=== PATIENT | female | born 1945 | race Caucasian/White ===

== ENCOUNTER → 2016-10-15 | Outpatient (CLI) | payer OTHER, MEDICARE ==
[~2016-10-15] MED LIST: ACET-1256 PO; ASPI81TA28 PO; CALC-20 PO; DICL-201 PO; IBAN150T PO; LEVO100T7 PO; MULT-916 PO; OXYC1TAB3 PO
--- NOTE | 2016-10-15 16:25 | MAMMOGRAPHY REPORT ---
BILATERAL DIGITAL SCREENING MAMMOGRAM WITH CAD: 10/15/2016 CLINICAL HISTORY: Routine screening. Patient has no complaints. TECHNIQUE: Bilateral CC and MLO views were obtained. Current study was also evaluated with a Comput er Aided Detection (CAD) system. COMPARISON: Comparison is made to exams dated: 10/10/2015 mammogram, 10/06/2014 mammogram, 06/17/2013 m ammogram, 06/16/2012 mammogram, 06/15/2011 mammogram, and 06/13/2010 mammogram - [facility]. BREAST COMPOSITION: There are scattered areas of fibroglandular density in both breasts. FINDINGS: There is a new 5 mm focal asymmetry in the 12:00 far posterior right breast, for which ad ditional spot compression tomosynthesis views and possibly ultrasound are recommended. There are scattered stable benign coarse calcifications elsewhere in the breast. Minimal vascular c alcification. No other suspicious mass, architectural distortion or cluster of microcalcifications i s seen. IMPRESSION: ACR BI-RADS CATEGORY 0: INCOMPLETE EVALUATION: NEED ADDITIONAL IMAGING EVALUATION The new 5 mm focal asymmetry in the 12:00 posterior right breast needs additional evaluation. The patient will be called to schedule an appointment. Approximately 10% of breast cancers are not detected with mammography. A negative mammographic repor t should not delay biopsy if a clinically suggestive mass is present. Tamiko Durán M.D. ay/:10/15/2016 14:21:47 Take Up Supervisor: Jaqueline SANCHEZ(Mt)(M), [facility] letter sent: Addl Imaging 0 BI-RADS Code: ACR BI-RADS Category 0: Incomplete Evaluation: Need Additional Imaging Evaluation
== END | disposition home or self-care (01) ==
LOC: C.MAMM 13:07
PROVIDERS: ATTEND Obstetrics & Gynecology
DX: Z12.31 Encounter for screening mammogram for malignant neoplasm of breast (principal); R92.8 Other abnormal and inconclusive findings on diagnostic imaging of breast

== ENCOUNTER → 2016-10-26 | Outpatient (CLI) | payer OTHER, MEDICARE ==
--- NOTE | 2016-10-26 16:33 | MAMMOGRAPHY REPORT ---
UNILATERAL RIGHT DIGITAL DIAGNOSTIC MAMMOGRAM TOMOSYNTHESIS AND TARGETED RIGHT ULTRASOUND: 10/26/2016 CLINICAL HISTORY: Callback from screening mammogram for right breast asymmetry. TECHNIQUE: Breast tomosynthesis in addition to standard 2D mammography was performed. Spot mick donato right CC and MLO 2-D and tomosynthesis images were obtained. COMPARISON: Comparison is made to exams dated: 10/15/2016 mammogram, 10/10/2015 mammogram, 10/06/2014 ma mmogram, 06/17/2013 mammogram, 06/16/2012 mammogram, and 06/15/2011 mammogram - [facility]. BREAST COMPOSITION: There are scattered areas of fibroglandular density in the right breast. FINDINGS: The previously described asymmetry seen within the right 12:00 breast posteriorly effaces on the additional spot compression views, suggestive of normal overlapping fibroglandular tissue. T he appearance of this region appears similar to prior exams including the 2014 exam on the spot comp ression MLO view. No suspicious masses or areas of architectural distortion are noted on the additi onal tomosynthesis images. Targeted ultrasound was performed of the right 12:00 breast in the region of the mammographic asymme try, which shows some atrophic normal tissue without evidence of a mass or other suspicious sonograp hic abnormality. IMPRESSION: ACR BI-RADS CATEGORY 2: BENIGN, TARGETED ULTRASOUND ACR BI-RADS CATEGORY 2: BENIGN The right breast asymmetry effaces on the additional views, without corresponding sonographic abnorm ality evident. The asymmetry is benign and compatible with normal overlapping fibroglandular tissue . There is no mammographic or targeted sonographic evidence of malignancy. A 1 year screening mammo gram is recommended. The patient has been verbally notified of the results. Approximately 10% of breast cancers are not detected with mammography. A negative mammographic repor t should not delay biopsy if a clinically suggestive mass is present. Maryan Simon M.D. /:10/26/2016 14:50:28 Dry Box Tender: Shania ROSS)(Jerzy), [facility] letter sent: Normal 1/2 BI-RADS Code: ACR BI-RADS Category 2: Benign Ultrasound BI-RADS: ACR BI-RADS Category 2: Benign
== END | disposition home or self-care (01) ==
LOC: C.MAMM 13:57
PROVIDERS: ATTEND Obstetrics & Gynecology
DX: N64.89 Other specified disorders of breast (principal)

== ENCOUNTER 2017-01-06 09:27 | Emergency (ER) | payer OTHER, MEDICARE ==
[~2017-01-06] VITALS: Ht 149.9 cm; Wt 84.1 kg
[2017-01-06 09:32] VITALS: TEMP 36.7; Ht 149.9 cm; Wt 84.1 kg
--- NOTE | 2017-01-06 09:46 | EMERGENCY ROOM VISIT NOTE ---
History Report prepared by Chandrika: Talat Vigren Under the Supervision of: Dr. Jay Smart M.D. First contact with patient: 09:36 Chief Complaint: LEG PAIN,LEG INJURY Stated Complaint: PAIN IN R THIGH History of Present Illness The patient is a 71 year old female who presents to the Emergency Room with complaints of persistent pain in the right leg that began on Saturday evening, two days prior to arrival. The patient states that her pain is located in the inner portion of the right thigh just below her groin. Her pain is worsened with movement, but she does not have any numbness or weakness in her lower leg or foot. The patient states that she does have a history of a broken right hip and had screw placement in the joint. She also has sciatica in the right side of her back, but she denies any back pain currently. She also denies any neck pain, nausea, vomiting, or recent falls. She has a history of osteoporosis, and varicose veins. Source of History: patient, family Onset: Two days [employer]OB DEVELOPMENT [employer]IST Position: leg (right) Timing: other (Persistent) Modifying Factors (Worsening): movement Associated Symptoms: No neck pain, No nausea, No vomiting, No back pain, No weakness, No numbness Review of Systems See HPI for pertinent positives & negatives. A total of 10 systems reviewed and were otherwise negative. Past Medical & Surgical Medical Problems: (1) Hip fracture, right (2) Osteoporosis Surgical Problems: (1) Closed hip fracture requiring operative repair Osteoporosis Old medical records were reviewed. Nurse's notes were reviewed and I agree with. No history of blood clots Family History No pertinent family history secondary to age. Social History Smoking Status: Never Smoker Drug Use: none Occupation Status: retired Current/Historical Medications Scheduled Acetaminophen (Tylenol), 2 TAB PO Q6 Aspirin (Aspirin Ec), 81 MG PO DAILY Calcium Carbonate-Vitamin D (Calcium 600 + D), 1 TAB PO BID Diclofenac (Voltaren), 75 MG PO BID Ibandronate Sodium (Boniva), 150 MG PO MONTHLY Levothyroxine Sodium (Levothyroxine Sodium), 1 TAB PO DAILY Multiple Vitamins W/ Minerals (Multivitamin Adults 50+), 1 TAB PO QAM Scheduled PRN Oxycodone Immediate Rel Tab (Roxicodone Ir), 1 TAB PO Q4H PRN for Severe Pain Allergies Coded Allergies: No Known Allergies (Unverified , 01/06/17) Physical Exam Vital Signs Date Time Temp Pulse Resp B/P (MAP) Pulse Ox O2 Delivery O2 Flow Rate FiO2 01/06/17 13:10 88 18 123/70 97 01/06/17 11:30 89 18 103/70 97 Room Air 01/06/17 09:32 36.7 88 18 159/86 95 Room Air Physical Exam General: Well developed well nourished in no acute distress, breathing comfortably on room air. Normal speech HEENT: Normal cephalic atraumatic. Pupils are equal round and reactive to light. Extraocular movements are intact. Oropharynx is pink with moist mucous membranes. No swelling of the mouth lips or tongue. Neck: Supple with a midline trachea. No meningeal signs or stiffness, no JVD or bruits. No Stridor. Chest: Clear to auscultation bilaterally. No wheezes or rhonchi. No increased work of breathing. Heart: regular rate and rhythm. Abdomen: Soft nontender, nondistended without rebound guarding or rigidity. Extremities: There is tenderness to the right anterior medial thigh, bounding distal pulses in the right foot. No cyanosis clubbing or edema. No calf tenderness or assymetry Spine/Back. Non tender to palpation. No CVA tenderness Skin: Good turgor without rashes. Neurologic exam: Cranial nerves two through 12 are intact. Motor and sensation are intact and symmetrical throughout. Medical Decision & Procedures ER Provider Diagnostic Interpretation: Radiology results as stated below per my review and radiologist interpretation: RIGHT FEMUR 3 VIEWS CLINICAL HISTORY: Right leg pain. FINDINGS: AP, frog-leg, and crosstable lateral views of the right femur are correlated with pelvic radiograph performed concurrently on 01/06/2017. The skeletal structures are osteopenic. No acute right femoral fracture is identified. There is chronic posttraumatic deformity of the right femoral neck with 3 intertrochanteric cortical lag screws in place. Advanced arthritic change is seen in the right hip. The knee joint is grossly preserved. The overlying soft tissues are within normal limits. The visualized right hemipelvis is intact. IMPRESSION: 1. There is no radiographic evidence of acute right femoral fracture. 2. Chronic posttraumatic deformity and postoperative change are noted in the right femoral neck. 3. Advanced arthritic change is noted in the right hip. Electronically signed by: Morteza Zhang M.D. 01/06/2017 10:48 AM Dictated Date/Time: 01/06/2017 10:46 AM ULTRASOUND RIGHT LOWER EXTREMITY VENOUS CLINICAL HISTORY: Right leg pain and swelling. COMPARISON STUDY: No priors. TECHNIQUE: Real-time, grayscale, and color Doppler sonography of the deep veins of the right lower extremity was performed from the inguinal crease to the calf. Compression and augmentation were utilized. FINDINGS: There is no sonographic evidence of deep venous thrombosis identified in the right lower extremity. The common femoral, superficial femoral, and popliteal veins are patent and normally compressible. The greater saphenous vein and the profunda femoris vein at the junction with the common femoral vein are clear. The visualized calf veins are patent. IMPRESSION: There is no sonographic evidence of deep venous thrombosis identified in the right lower extremity. Electronically signed by: Morteza Zhang M.D. 01/06/2017 10:41 AM Dictated Date/Time: 01/06/2017 10:40 AM SINGLE VIEW PELVIS CLINICAL HISTORY: Right leg pain. FINDINGS: An AP pelvic radiograph is obtained. No prior studies are available for comparison at the time of dictation. The skeletal structures are osteopenic. Chronic posttraumatic deformity is identified in the right femoral neck with 3 cortical intertrochanteric lag screws in place. No acute fracture is seen involving the hips or bony pelvis. Advanced arthritic change is seen in the right hip with bony sclerosis and near complete loss of the joint space. Moderate to advanced arthritic change is seen in the left hip. Degenerative sclerosis and overgrowth is noted at the pubic symphysis. Mild lumbosacral spondylosis is partially visualized. The overlying soft tissues are within normal limits. There is a nonobstructed abdominal bowel gas pattern. IMPRESSION: 1. No acute fracture is seen in the hips or bony pelvis. 2. Chronic posttraumatic deformity and postoperative change is identified in the right femur. 3. Osteopenia and degenerative change as above. Electronically signed by: Morteza Zhang M.D. 01/06/2017 10:42 AM Dictated Date/Time: 01/06/2017 10:41 AM Laboratory Results 01/06/17 09:57 Red Blood Count 4.42, Mean Corpuscular Volume 93.0, Mean Corpuscular Hemoglobin 29.9, Mean Corpuscular Hemoglobin Concent 32.1, Mean Platelet Volume 10.3, Neutrophils (%) (Auto) 57.6, Lymphocytes (%) (Auto) 21.1, Monocytes (%) (Auto) 15.0, Eosinophils (%) (Auto) 5.4, Basophils (%) (Auto) 0.8, Neutrophils # (Auto ) 4.44, Lymphocytes # (Auto) 1.63, Monocytes # (Auto) 1.16, Eosinophils # (Auto ) 0.42, Basophils # (Auto) 0.06 01/06/17 09:57 Test 01/06/17 09:57 White Blood Count 7.72 K/uL (4.8-10.8) Red Blood Count 4.42 M/uL (4.2-5.4) Hemoglobin 13.2 g/dL (12.0-16.0) Hematocrit 41.1 % (37-47) Mean Corpuscular Volume 93.0 fL (80-100) Mean Corpuscular Hemoglobin 29.9 pg (25-34) Mean Corpuscular Hemoglobin Concent 32.1 g/dl (32-36) Platelet Count 252 K/uL (130-400) Mean Platelet Volume 10.3 fL (7.4-10.4) Neutrophils (%) (Auto) 57.6 % Lymphocytes (%) (Auto) 21.1 % Monocytes (%) (Auto) 15.0 % Eosinophils (%) (Auto) 5.4 % Basophils (%) (Auto) 0.8 % Neutrophils # (Auto) 4.44 K/uL (1.4-6.5) Lymphocytes # (Auto) 1.63 K/uL (1.2-3.4) Monocytes # (Auto) 1.16 K/uL (0.11-0.59) Eosinophils # (Auto) 0.42 K/uL (0-0.5) Basophils # (Auto) 0.06 K/uL (0-0.2) RDW Standard Deviation 47.0 fL (36.4-46.3) RDW Coefficient of Variation 13.8 % (11.5-14.5) Immature Granulocyte % (Auto) 0.1 % Immature Granulocyte # (Auto) 0.01 K/uL (0.00-0.02) Anion Gap 7.0 mmol/L (3-11) Est Creatinine Clear Calc Drug Dose 76.0 ml/min Estimated GFR () 103.7 Estimated GFR (Non- 89.5 BUN/Creatinine Ratio 31.3 (10-20) Calcium Level 8.8 mg/dl (8.5-10.1) Thyroid Stimulating Hormone (TSH) 1.230 uIu/ml (0.300-4.500) Free Thyroxine 1.69 ng/dl (0.80-1.60) Laboratory studies as stated above per my review. Medications Administered Medications (Trade) Dose Ordered Sig/Shagufta Route Start Time Stop Time Status Last Admin Dose Admin Ketorolac Tromethamine (Toradol Inj) 30 mg NOW STAT IV 01/06/17 11:36 01/06/17 11:37 DC 01/06/17 11:46 30 MG ED Course 0937: Past medical records reviewed. The patient was evaluated in room B4, and a complete history and physical examination were performed. 1136: Ordered Toradol 30 mg IV. 1254: Upon reevaluation, the patient is resting in bed and is ready to go home. I discussed the results and treatment plan with her. She verbalized agreement of the treatment plan. The patient was discharged home. Medical Decision Blood Pressure Screening: Patient was found to have a slightly elevated blood pressure due to circumstances. I do not believe that the patient requires hypertension monitoring. Medication Reconciliation: I attest that I have personally reviewed the patient' s current medication list. Differential Diagnosis includes: DVT, hematoma, infection, fracture, electrolyte or metabolic abnormality. This patient comes in as described above she has pain in the right anterior/ medial thigh. No known injuries. On the right leg hurts worse with movement. There is no redness or warmth distally she has distal normal motor and sensation and good pulses. She's no tenderness to the abdomen no evidence of hernias. Ultrasound was obtained leg is no evidence of DVT. She has no significant white count or fever her cellulitis. She has no electrode metabolic abdomen. She was given IV Toradol is feeling somewhat better she does feel up to going home. X-rays show no fracture she does have degenerative arthritis of the hip and this could be causing some of her symptoms. I think her symptoms are likely musculoskeletal . I will have her rest continue to use [id number] acetaminophen but do not exceed the [id number] recommended dosages. Continue her NSAID. For breakthrough pain, she can use OxyIR 5 mg, 1 pill every 4-6 hours as needed. I warned her that this could make her drowsy and do not take before drinking, driving, working. She should return if: increasing pain, numbness or weakness, worsening of symptoms, any new problems or concerns. Follow-up with her regular doctor in the next couple days for recheck. She is happy with plan and discharged to home. Impression Primary Impression: Right thigh pain Additional Impression: Degenerative joint disease of right hip Scribe Attestation The scribe's documentation has been prepared under my direction and personally reviewed by me in its entirety. I confirm that the note above accurately reflects all work, treatment, procedures, and medical decision making performed by me. Departure Information Dispostion Home / Self-Care Prescriptions Oxycodone Immediate Rel Tab (ROXICODONE IR) 5 Mg Tab 1 TAB PO Q4H Y for Severe Pain, #24 TAB Prov: Jay Smart M.D. 01/06/17 Referrals Paul Souza M.D. (PCP) Forms HOME CARE DOCUMENTATION FORM, IMPORTANT VISIT INFORMATION Patient Instructions My [facility] Additional Instructions Rest. Drink plenty of fluids. Continue to use your anti-inflammatory as well as acetaminophen/Tylenol. Do not exceed the [id number] recommended dosages for acetaminophen/Tylenol For more severe pain, use OxyIR 5 mg, one pill every 4-6 hours as needed. OxyIR may make you drowsy and do not take before drinking, driving, working and be especially careful getting up and down. Return if: Increasing pain, worsening of symptoms, numbness weakness, fever chills, any new problems concerns Follow-up with your doctor 1-2 days for recheck. Problem Qualifiers
[2017-01-06 10:07] LABS: BASO % 0.8 %; BASO ABS # 0.06 K/uL (0-0.2); COMPLETE YES; EOS % 5.4 %; HEMATOCRIT 41.1 % (37-47); IG% 0.1 %; LYMPH % 21.1 %; LYMPH ABS # 1.63 K/uL (1.2-3.4); MEAN CORPUSCULAR HEMOGLOBIN 29.9 pg (25-34); MEAN CORPUSCULAR HGB CONC 32.1 g/dl (32-36); MEAN PLATELET VOLUME 10.3 fL (7.4-10.4); NEUT % 57.6 %; PLATELET COUNT 252 K/uL (130-400); RED BLOOD COUNT 4.42 M/uL (4.2-5.4); WHITE BLOOD COUNT 7.72 K/uL (4.8-10.8)
[2017-01-06] MEDS ORDERED: LEVO100T7 PO (10:18)
[2017-01-06] MEDS ORDERED: ACET-1256 PO (10:18)
[2017-01-06] MEDS ORDERED: MULT-916 PO (10:18)
[2017-01-06] MEDS ORDERED: CALC-20 PO (10:18)
[2017-01-06] MEDS ORDERED: IBAN150T PO (10:18)
[2017-01-06] MEDS ORDERED: ASPI81TA28 PO (10:18)
[2017-01-06] MEDS ORDERED: DICL-201 PO (10:18)
[2017-01-06 10:23] LABS: BUN/CREATININE RATIO 31.3 (10-20); CALCIUM 8.8 mg/dl (8.5-10.1); CREATININE 0.62 mg/dl (0.60-1.20); POTASSIUM 4.1 mmol/L (3.5-5.1)
--- NOTE | 2017-01-06 10:42 | DIAGNOSTIC IMAGING REPORT ---
ULTRASOUND RIGHT LOWER EXTREMITY VENOUS CLINICAL HISTORY: Right leg pain and swelling. COMPARISON STUDY: No priors. TECHNIQUE: Real-time, grayscale, and color Doppler sonography of the deep veins of the right lower extremity was performed from the inguinal crease to the calf. Compression and augmentation were utilized. FINDINGS: There is no sonographic evidence of deep venous thrombosis identified in the right lower extremity. The common femoral, superficial femoral, and popliteal veins are patent and normally compressible. The greater saphenous vein and the profunda femoris vein at the junction with the common femoral vein are clear. The visualized calf veins are patent. IMPRESSION: There is no sonographic evidence of deep venous thrombosis identified in the right lower extremity. Electronically signed by: Morteza Zhang M.D. 01/06/2017 10:41 AM Dictated Date/Time: 01/06/2017 10:40 AM
--- NOTE | 2017-01-06 10:44 | DIAGNOSTIC IMAGING REPORT ---
SINGLE VIEW PELVIS CLINICAL HISTORY: Right leg pain. FINDINGS: An AP pelvic radiograph is obtained. No prior studies are available for comparison at the time of dictation. The skeletal structures are osteopenic. Chronic posttraumatic deformity is identified in the right femoral neck with 3 cortical intertrochanteric lag screws in place. No acute fracture is seen involving the hips or bony pelvis. Advanced arthritic change is seen in the right hip with bony sclerosis and near complete loss of the joint space. Moderate to advanced arthritic change is seen in the left hip. Degenerative sclerosis and overgrowth is noted at the pubic symphysis. Mild lumbosacral spondylosis is partially visualized. The overlying soft tissues are within normal limits. There is a nonobstructed abdominal bowel gas pattern. IMPRESSION: 1. No acute fracture is seen in the hips or bony pelvis. 2. Chronic posttraumatic deformity and postoperative change is identified in the right femur. 3. Osteopenia and degenerative change as above. Electronically signed by: Morteza Zhang M.D. 01/06/2017 10:42 AM Dictated Date/Time: 01/06/2017 10:41 AM
--- NOTE | 2017-01-06 10:49 | DIAGNOSTIC IMAGING REPORT ---
RIGHT FEMUR 3 VIEWS CLINICAL HISTORY: Right leg pain. FINDINGS: AP, frog-leg, and crosstable lateral views of the right femur are correlated with pelvic radiograph performed concurrently on 01/06/2017. The skeletal structures are osteopenic. No acute right femoral fracture is identified. There is chronic posttraumatic deformity of the right femoral neck with 3 intertrochanteric cortical lag screws in place. Advanced arthritic change is seen in the right hip. The knee joint is grossly preserved. The overlying soft tissues are within normal limits. The visualized right hemipelvis is intact. IMPRESSION: 1. There is no radiographic evidence of acute right femoral fracture. 2. Chronic posttraumatic deformity and postoperative change are noted in the right femoral neck. 3. Advanced arthritic change is noted in the right hip. Electronically signed by: Morteza Zhang M.D. 01/06/2017 10:48 AM Dictated Date/Time: 01/06/2017 10:46 AM
[2017-01-06] MEDS ORDERED: KETOROLAC TROMETHAMINE 30 MG/ML VIAL IV STA (11:36)
[2017-01-06] MEDS ORDERED: OXYC1TAB3 PO (12:51)
[2017-01-06 13:10] VITALS: BP 123/70; PULSE 88; O2SAT 97
[2017-01-06 13:23] LABS: THYROID STIMULATING HORMONE 1.23 uIu/ml (0.300-4.500)
== END 2017-01-06 13:12 | disposition home or self-care (01) ==
LOC: C.EDB 09:28
DX: M79.651 Pain in right thigh (principal); M16.11 Unilateral primary osteoarthritis, right hip; M81.0 Age-related osteoporosis without current pathological fracture; I83.90 Asymptomatic varicose veins of unspecified lower extremity; Z79.82 Long term (current) use of aspirin; Z79.899 Other long term (current) drug therapy

== ENCOUNTER → 2017-08-19 | Outpatient (CLI) | payer OTHER, MEDICARE ==
[~2017-08-19] MED LIST changes: -OXYC1TAB3 PO
== END | disposition home or self-care (01) ==
LOC: C.RDSM 18:55
PROVIDERS: ATTEND Family Medicine Sports Medicine
DX: M25.551 Pain in right hip (principal)

== ENCOUNTER → 2017-09-16 | Outpatient (CLI) | payer OTHER, MEDICARE | END | disposition home or self-care (01) | LOC: C.LABBC 11:27 | PROVIDERS: ATTEND Physician Assistant | DX: M16.11 Unilateral primary osteoarthritis, right hip (principal) ==

== ENCOUNTER 2017-11-02 09:46 | Emergency (ER) | payer OTHER, MEDICARE ==
[2017-11-02 09:52] VITALS: TEMP 36.9
[2017-11-02] MEDS ORDERED: ONDANSETRON INJ 2 MG/ML 2 ML VIAL IV STA (10:00)
[2017-11-02] MEDS: HYDROmorphone INJ 0.5 MG/0.5 ML SYR IV PRN ×3 (10:15→15:35)
[2017-11-02 10:33] LABS: BASO % 0.6 %; BASO ABS # 0.04 K/uL (0-0.2); EOS % 2.5 %; EOS ABS # 0.16 K/uL (0-0.5); HEMATOCRIT 37.2 % (37-47); HEMOGLOBIN 12.4 g/dL (12.0-16.0); IG# 0.01 K/uL (0.00-0.02); LYMPH % 15.2 %; LYMPH ABS # 0.96 K/uL (1.2-3.4); MEAN CELL VOLUME 86.7 fL (80-100); MEAN CORPUSCULAR HEMOGLOBIN 28.9 pg (25-34); MEAN CORPUSCULAR HGB CONC 33.3 g/dl (32-36); MEAN PLATELET VOLUME 10.6 fL (7.4-10.4); MONO % 13.4 %; MONO ABS # 0.85 K/uL (0.11-0.59); NEUT % 68.1 %; NEUT ABS # 4.31 K/uL (1.4-6.5); PLATELET COUNT 227 K/uL (130-400); RED CELL DISTRIBUTION WIDTH CV 15.6 % (11.5-14.5); RED CELL DISTRIBUTION WIDTH SD 49.5 fL (36.4-46.3); WHITE BLOOD COUNT 6.33 K/uL (4.8-10.8)
[2017-11-02 10:36] LABS: BLOOD UREA NITROGEN 9 mg/dl (7-18); CALCIUM 8.7 mg/dl (8.5-10.1); CARBON DIOXIDE 29 mmol/L (21-32); CREATININE 0.43 mg/dl (0.60-1.20); GLUCOSE 95 mg/dl (70-99); SODIUM 140 mmol/L (136-145)
--- NOTE | 2017-11-02 10:40 | DIAGNOSTIC IMAGING REPORT ---
R HIP UNILATERAL 2 VIEWS CLINICAL HISTORY: fall trauma. Pain. COMPARISON: 08/19/2017 DISCUSSION: Patient is status post right hip pain. 3. No old films are present. There appears to have been somewhat progressive substance loss of the superior margin of the hip. This appears to intrude upon the joint space. There is no evidence for fracture. No evidence for acetabular protrusion. There appears be a forming pseudoarticulation the lateral aspect of the acetabulum. There is no evidence for soft tissue swelling. IMPRESSION: Degenerative and postoperative change. No acute posttraumatic bony abnormality. The above report was generated using voice recognition software. It may contain grammatical, syntax or spelling errors. Electronically signed by: Cameron Gonzales M.D. 11/02/2017 10:38 AM Dictated Date/Time: 11/02/2017 10:37 AM
[2017-11-02] MEDS ORDERED: IBUP-103 PO (11:12)
[2017-11-02] MEDS ORDERED: TYLER650 PO (11:12)
[2017-11-02] MEDS ORDERED: TRAM-10 PO (11:12)
--- NOTE | 2017-11-02 11:37 | EMERGENCY ROOM VISIT NOTE ---
History Report prepared by Chandrika: Tayo Arellano Under the Supervision of: Dr. Guillermo Arreola M.D. First contact with patient: 09:47 Stated Complaint: FALL - HIP/BACK PAIN History of Present Illness The patient is a 72 year old female who presents to the Emergency Room due to a fall that occurred 31 hours ago. Patient states that the fall occurred when she went into the kitchen. She states that she first fell forward and hit her face, and then fell backwards onto her butt and hit the back of her head. Patient states that she "did not hit her head that hard" and did not lose consciousness. Patient states she has lower back pain from the fall that is worsened when she turns her body to the right. She adds that her forearm is sore. She describes the pain as a 7-8/10 in severity with Tramadol. Patient adds that she has chronic hip pain. She states that she was able to get herself up off the ground after the fall "after a long time" by crawling to the couch. Patient states that yesterday was "very painful" and that she had to be wheel chaired around all day. Patient states that she lives at home. She states that she takes a baby aspirin once a day. Pertinent past surgical history includes a hip surgery performed in a [place] ER for a broken hip. Patient states that she takes Tramadol for the hip pain. Patient states that she has a hip surgery scheduled with Dr. Lopez at [place] on January 28. Patient states that her family doctor is Dr. Souza but currently sees Dr. Lara. Pt denies LOC, headache, fevers, chills, diaphoresis, visual changes, neck pain, chest pain, breathing difficulties, nausea, vomiting, abdominal pain, melena, hematochezia, urinary symptoms, numbness, weakness, lymphadenopathy, rash, or other complaints. Source of History: patient Onset: 31 hours ago Review of Systems See HPI for pertinent positives and negatives. A total of ten systems were reviewed and were otherwise negative. Past Medical & Surgical Medical Problems: (1) Hip fracture, right (2) Osteoporosis Surgical Problems: (1) Closed hip fracture requiring operative repair Family History FHx: cancer FHx: diabetes mellitus FHx: gallbladder disease Social History Smoking Status: Never Smoker Drug Use: none Occupation Status: retired Current/Historical Medications Scheduled Acetaminophen (Tylenol Arthitis Ext Rel), 2 TAB PO AMHS Aspirin (Aspirin Ec), 81 MG PO DAILY Calcium Carbonate-Vitamin D (Calcium 600 + D), 1 TAB PO BID Ibandronate Sodium (Boniva), 150 MG PO MONTHLY Ibuprofen Tab (Advil), 600 MG PO Q4H Levothyroxine Sodium (Levothyroxine Sodium), 100 MCG PO DAILY Multiple Vitamins W/ Minerals (Multivitamin Adults 50+), 1 TAB PO QAM Tramadol (Ultram), 50 MG PO Q4H Allergies Coded Allergies: No Known Allergies (Unverified , 11/02/17) Physical Exam Vital Signs Date Time Temp Pulse Resp B/P (MAP) Pulse Ox O2 Delivery O2 Flow Rate FiO2 11/02/17 13:02 171/93 11/02/17 13:00 75 15 11/02/17 12:30 78 17 98 11/02/17 12:03 113/86 11/02/17 12:00 78 15 98 11/02/17 11:52 94 Nasal Cannula 2.0 11/02/17 11:42 77 11/02/17 11:30 75 22 90 11/02/17 11:20 143/78 11/02/17 11:12 76 16 143/78 95 Room Air 11/02/17 11:12 95 Room Air 11/02/17 09:52 36.9 89 20 205/118 95 Room Air Physical Exam GENERAL: Awake, alert, uncomfortable-appearing, in no distress HENT: Normocephalic, atraumatic. Oropharynx unremarkable. EYES: Normal conjunctiva. Sclera non-icteric. NECK: Supple. No nuchal rigidity. FROM. No masses. RESPIRATORY: Clear to auscultation. No wheezes. No rales. Normal respiratory effort. CARDIAC: Normal rate. Normal rhythm. No murmurs. No rubs. Extremities warm and well perfused. Pulses equal. No JVD. GI: Soft, non-distended. No tenderness to palpation. No rebound or guarding. No masses. RECTAL: Deferred. MUSCULOSKELETAL: Atraumatic. Chest examination reveals no tenderness. Large contusion in the left tricep area. Contusion on right thigh. Midline lumbar back tenderness. Mild left posterior hip tenderness. ROM of the right hip relatively well preserved. There is no CVA tenderness to palpation. No joint edema. LOWER EXTREMITIES: Calves are equal size bilaterally and non-tender. No edema. No discoloration. NEURO: Normal sensorium. No sensory or motor deficits noted. No saddle anesthesia SKIN: No rash or jaundice noted. Medical Decision & Procedures ER Provider Diagnostic Interpretation: Radiology results as stated below per my review and radiologist interpretation: R HIP UNILATERAL 2 VIEWS CLINICAL HISTORY: fall trauma. Pain. COMPARISON: 08/19/2017 DISCUSSION: Patient is status post right hip pain. 3. No old films are present. There appears to have been somewhat progressive substance loss of the superior margin of the hip. This appears to intrude upon the joint space. There is no evidence for fracture. No evidence for acetabular protrusion. There appears be a forming pseudoarticulation the lateral aspect of the acetabulum. There is no evidence for soft tissue swelling. IMPRESSION: Degenerative and postoperative change. No acute posttraumatic bony abnormality. The above report was generated using voice recognition software. It may contain grammatical, syntax or spelling errors. Electronically signed by: Cameron Gonzales M.D. 11/02/2017 10:38 AM LUMBAR SPINE WITHOUT CT DOSE: 776.31 mGy.cm HISTORY: Pain Back pain TECHNIQUE: Multiaxial CT images of the lumbar spine were performed and reformatted in the sagittal and coronal plane without the use of contrast. A dose lowering technique was utilized adhering to the principles of ALARA. COMPARISON: None. FINDINGS: Vertebral body stature is normal. Moderate compression deformity T11 of uncertain age. Severe degenerative disc change L5-S1. A vacuum disc is present. Minimal grade 1 anterolisthesis of L4 on L5 secondary to degenerative changes of the posterior elements. Moderate osteopenia. IMPRESSION: 1. Significant degenerative change lower lumbar spine considered most prominent at the L4-L5 level. 2. Generalized osteopenia. 3. Moderate compression deformities T11 of uncertain age. The above report was generated using voice recognition software. It may contain grammatical, syntax or spelling errors. Electronically signed by: Cameron Gonzales M.D. 11/02/2017 11:40 AM Laboratory Results 11/02/17 10:09 Red Blood Count 4.29, Mean Corpuscular Volume 86.7, Mean Corpuscular Hemoglobin 28.9, Mean Corpuscular Hemoglobin Concent 33.3, Mean Platelet Volume 10.6, Neutrophils (%) (Auto) 68.1, Lymphocytes (%) (Auto) 15.2, Monocytes (%) (Auto) 13.4, Eosinophils (%) (Auto) 2.5, Basophils (%) (Auto) 0.6, Neutrophils # (Auto ) 4.31, Lymphocytes # (Auto) 0.96, Monocytes # (Auto) 0.85, Eosinophils # (Auto ) 0.16, Basophils # (Auto) 0.04 11/02/17 10:09 Test 11/02/17 10:09 11/02/17 10:27 White Blood Count 6.33 K/uL (4.8-10.8) Red Blood Count 4.29 M/uL (4.2-5.4) Hemoglobin 12.4 g/dL (12.0-16.0) Hematocrit 37.2 % (37-47) Mean Corpuscular Volume 86.7 fL (80-100) Mean Corpuscular Hemoglobin 28.9 pg (25-34) Mean Corpuscular Hemoglobin Concent 33.3 g/dl (32-36) Platelet Count 227 K/uL (130-400) Mean Platelet Volume 10.6 fL (7.4-10.4) Neutrophils (%) (Auto) 68.1 % Lymphocytes (%) (Auto) 15.2 % Monocytes (%) (Auto) 13.4 % Eosinophils (%) (Auto) 2.5 % Basophils (%) (Auto) 0.6 % Neutrophils # (Auto) 4.31 K/uL (1.4-6.5) Lymphocytes # (Auto) 0.96 K/uL (1.2-3.4) Monocytes # (Auto) 0.85 K/uL (0.11-0.59) Eosinophils # (Auto) 0.16 K/uL (0-0.5) Basophils # (Auto) 0.04 K/uL (0-0.2) RDW Standard Deviation 49.5 fL (36.4-46.3) RDW Coefficient of Variation 15.6 % (11.5-14.5) Immature Granulocyte % (Auto) 0.2 % Immature Granulocyte # (Auto) 0.01 K/uL (0.00-0.02) Anion Gap 5.0 mmol/L (3-11) Estimated GFR () 116.1 Estimated GFR (Non- 100.2 BUN/Creatinine Ratio 20.1 (10-20) Calcium Level 8.7 mg/dl (8.5-10.1) Urine Color YELLOW Urine Appearance CLEAR (CLEAR) Urine pH 7.5 (4.5-7.5) Urine Specific [place] 1.011 (1.000-1.030) Urine Protein NEG (NEG) Urine Glucose (UA) NEG (NEG) Urine Ketones NEG (NEG) Urine Occult Blood NEG (NEG) Urine Nitrite NEG (NEG) Urine Bilirubin NEG (NEG) Urine Urobilinogen NEG (NEG) Urine Leukocyte Esterase SMALL (NEG) Urine WBC (Auto) 5-10 /hpf (0-5) Urine RBC (Auto) 0-4 /hpf (0-4) Urine Hyaline Casts (Auto) 1-5 /lpf (0-5) Urine Epithelial Cells (Auto) >30 /lpf (0-5) Urine Bacteria (Auto) NEG (NEG) Laboratory results reviewed by me Medications Administered Medications (Trade) Dose Ordered Sig/Shagufta Route Start Time Stop Time Status Last Admin Dose Admin Ondansetron HCl (Zofran Inj) 4 mg NOW STAT IV 11/02/17 10:00 11/02/17 10:03 DC 11/02/17 10:14 4 MG Hydromorphone HCl (Dilaudid Inj) 0.5 mg Q15M PRN IV 11/02/17 10:00 11/16/17 09:59 11/02/17 11:11 0.5 MG Potassium Chloride (Klor-Con M10) 20 meq NOW STAT PO 11/02/17 12:00 11/02/17 12:01 DC 11/02/17 12:46 20 MEQ ED Course 0952: The patient was evaluated in room B9. A complete history and physical exam was performed. 1000: Dilaudid Inj 0.5mg IV and Zofran Inj 4mg IV. 1200: Potassium Chloride 20 meq PO 1401: Upon reexamination, the patient will be further evaluated. I discussed the test results and treatment plan with Dr. Toledo. The patient was accepted into [facility]. Transportation for the patient will be arranged. The patient will be evaluated for further management. Medical Decision Triage Nursing notes reviewed. The patient's presentation and history were concerning for fall and back pain. Patient also noted some mild right hip pain. Etiologies such as fracture, lumbago, sciatica, cauda equina, epidural abscess , osteomyelitis, aortic disease, metastatic disease, infection, renal colic, gastrointestinal, as well as others were entertained. The patient was treated with IV Dilaudid and Zofran. She felt much better with this. X-ray imaging of the hip was unremarkable. She has a few other scattered contusions on her extremities. There is no other bony deformity. CT imaging was elected to evaluate for traumatic injury to her lower spine. She was found to have a significant T11 compression fracture. She did require several doses of IV Dilaudid. On reassessment she was feeling better. Treatment options were discussed. The patient was evaluated by the field nurse case manager. Her CBC was unremarkable. Her chemistry panel revealed mild hypokalemia. She was given oral potassium. The patient was felt to be a good candidate for [facility] rehabilitation inpatient treatment and they were consulted. She was accepted. Patient and family feel very comfortable with this plan. I gave my usual and customary discussion regarding this issue. Medication Reconcilliation Current Medication List: was personally reviewed by me Blood Pressure Screening Patient's blood pressure: Elevated blood pressure Referred to hospitalist. Impression Primary Impression: Thoracic compression fracture Additional Impression: Hypokalemia Scribe Attestation The scribe's documentation has been prepared under my direction and personally reviewed by me in its entirety. I confirm that the note above accurately reflects all work, treatment, procedures, and medical decision making performed by me. Departure Information Dispostion Transfer Acute Care Facility Referrals Paul Souza M.D. (PCP) Forms HOME CARE DOCUMENTATION FORM, IMPORTANT VISIT INFORMATION Patient Instructions My [facility] Problem Qualifiers
--- NOTE | 2017-11-02 11:41 | DIAGNOSTIC IMAGING REPORT ---
LUMBAR SPINE WITHOUT CT DOSE: 776.31 mGy.cm HISTORY: Pain Back pain TECHNIQUE: Multiaxial CT images of the lumbar spine were performed and reformatted in the sagittal and coronal plane without the use of contrast. A dose lowering technique was utilized adhering to the principles of ALARA. COMPARISON: None. FINDINGS: Vertebral body stature is normal. Moderate compression deformity T11 of uncertain age. Severe degenerative disc change L5-S1. A vacuum disc is present. Minimal grade 1 anterolisthesis of L4 on L5 secondary to degenerative changes of the posterior elements. Moderate osteopenia. IMPRESSION: 1. Significant degenerative change lower lumbar spine considered most prominent at the L4-L5 level. 2. Generalized osteopenia. 3. Moderate compression deformities T11 of uncertain age. The above report was generated using voice recognition software. It may contain grammatical, syntax or spelling errors. Electronically signed by: Cameron Gonzales M.D. 11/02/2017 11:40 AM Dictated Date/Time: 11/02/2017 11:38 AM
[2017-11-02 11:52] VITALS: O2SAT 94
[2017-11-02] MEDS ORDERED: POTASSIUM CHLORIDE 10 MEQ TABCR PO STA (12:00)
[2017-11-02 15:36] VITALS: BP 147/72; PULSE 91; O2SAT 95
== END 2017-11-02 15:50 | disposition short-term general hospital (02) ==
LOC: EDBD 09:46 → C.EDB 09:47
DX: S22.089A Unspecified fracture of T11-T12 vertebra, initial encounter for closed fracture (principal); E87.6 Hypokalemia; W19.XXXA Unspecified fall, initial encounter; W22.8XXA Striking against or struck by other objects, initial encounter; Y92.030 Kitchen in apartment as the place of occurrence of the external cause; M81.0 Age-related osteoporosis without current pathological fracture; Z98.890 Other specified postprocedural states; Z83.3 Family history of diabetes mellitus; Z79.82 Long term (current) use of aspirin; Z79.899 Other long term (current) drug therapy

== ENCOUNTER 2019-09-26 15:02 | Inpatient (IN) ==
[2019-09-26] MEDS ORDERED: fentaNYL citrate 100 MCG/2 ML VIAL IV STA ×4 (15:11→17:58)
[2019-09-26] MEDS ORDERED: ACETAMINOPHEN 1,000 MG/100 ML VIAL IV STA (15:11)
--- NOTE | 2019-09-26 15:17 | Emergency Department Note ---
ED Provider Note Provider: Rico Cole MD DATE OF SERVICE: 09/26/2019 CHIEF COMPLAINT: Left thigh pain HISTORY OF PRESENT ILLNESS: Patient is a 74-year-old female with a history of hypothyroidism, hypertension, and issues with her left thigh presenting today with a complaint of severe sudden onset left thigh pain. Patient presents via EMS. Received 200 mcg of IV fentanyl prior to arrival for pain. Patient was evidently in her garage get ready to back out of her car and put some slight pressure on her left leg immediately felt a pop and severe pain in her left thigh. Patient been able to ambulate since this. Denies any other pain in her knee left foot right lower extremity or abdomen pelvis. Patient has been undergoing several weeks of physical therapy directed by her primary care provider's office regarding some pain in her left thigh. No recent imaging reported per the patient. Patient does take baby aspirin every day. Patient pain upon arrival is at rest 10 out of 10 and constant worse with movement. Has been using some ibuprofen at home. REVIEW OF SYSTEMS: A total of 10 review of systems was obtained and negative except as stated above in the HPI. PAST MEDICAL HISTORY: As noted above MEDICATIONS: Baby aspirin, Synthroid, amlodipine SOCIAL HISTORY: , lives at home, denies tobacco use PHYSICAL EXAM: GENERAL: alert and oriented left leg on pillows patient appears uncomfortable Head: normocephalic and atraumatic EYES: No injection, discharge or icterus. ENT: Mucous membranes pink and moist. LUNGS: Airway patent. No retractions. Breath sounds clear with good air entry bilaterally. HEART: Regular rate and rhythm. No chest wall tenderness ABDOMEN: Soft and non-tender, without guarding or rebound. BACK:. No bilateral flank tenderness. SKIN: Acyanotic, warm, dry, without rashes EXTREMITIES: Without swelling, tenderness or deformity except for significant tenderness of the left thigh. Pain with ROM of the left thigh. Neurovascularly intact in the left lower extremity with a 2+ DP pulse. Intact movement of the left toes. No bruising or skin changes noted. NEUROLOGICAL: No focal deficits. No aphasia. No facial droop or slurred speech. Normal strength and tone in the extremities. Sensation to gross touch normal. EKG: Normal sinus rhythm rate 66 bpm. No PVC. No ST segment elevation or depression. Normal QRS and QTc. Cardiac monitoring: An order was placed for continuous cardiac monitoring. The monitor shows a rate of 85 with normal sinus rhythm. Patient's hypertension was referred to the hospitalist [facility] COURSE: 1505 Patient was first seen and H&P performed. 1630 Patient reassessed and updated. Call to orthopedics was placed. 165 Discussed with jerel Bernard med admission. Hospitalist group paged. 1710 discussed with Judy Robertson [facility] Patient's laboratory studies and imaging reviewed. Differential includes Fracture, subluxation, dislocation, contusion, ligamentous injury, neurovascular, compartment syndrome, rhabdomyolysis, as well as other pathologies. IMPRESSION/MEDICAL DECISION MAKING: Patient is a 74-year-old female history of hypothyroidism and hypertension presenting today again with sudden onset of left thigh pain without significant trauma. Some pain for several weeks. Concern for possible occult fracture/pathological fracture. X-ray obtained here. Given some fentanyl and IV Tylenol initially for pain control. Basic labs obtained; unremarkable labs, CXR, and EKG. No other significant trauma and doubt head neck or thoracic in jury. Patient's hypertension likely secondary to her pain. Received additional fentanyl here with close monitoring for hypoxia which was transient with a narcotic necessary to obtain the x-rays. Evidence of a mid left femoral fracture. Prior orthopedic work done by [facility] in [place] on her right hip. History of osteoporosis. Discussed with who recommended medical admission; he was okay with Toradol. Hospitalist group was alerted. Trial of some morphine was initiated as her pain has been difficult to control. DIAGNOSIS: Left femoral fracture. DISPOSITION: Hospitalist will evaluate for admission Impression & Plan Fracture of femur Past Med/Surg History Medical History (Updated 09/26/19 @ 18:13 by Judy Robertson PA-C) HTN (hypertension) Hypothyroidism Osteoporosis Surgical History (Updated 09/26/19 @ 18:11 by Judy Robertson PA-C) History of total right hip arthroplasty Family History Mother No significant family history Social History Preferred Language: Swedish Feels Safe at Home: Yes Smoking Status: Never smoker Results & Data Vital Signs Vital Signs - 24 hr 09/26/19 15:04 09/26/19 15:32 09/26/19 15:50 Temperature 36.5 C Temperature Source Oral Pulse Rate 90 Pulse Rate [Apical] 85 Pulse Rate from SpO2 Sensor Pulse Rhythm [Apical] Regular Respiratory Rate 17 22 Respiratory Effort / Characteristics Non-Labored Non-Labored Respiratory Depth Normal Normal Blood Pressure 215/148 H Blood Pressure [Left Arm] 179/101 H Blood Pressure Mean 170 Blood Pressure Mean [Left Arm] 127 Blood Pressure Position [Left Arm] Lying Pulse Oximetry 97 98 81 L Oxygen Delivery Method Room Air Room Air Room Air Oxygen Flow Rate Fraction of Inspired Oxygen Sepsis Recent Fever Within 48 Hours No Sepsis New/Unexplained Change in Mental Status No Sepsis Action Taken by Nursing No Action Required Oxygen Flow Rate - Titration 2.5 Pulse Oximetry Post Tiitration 98 09/26/19 15:51 09/26/19 16:01 09/26/19 16:15 Temperature Temperature Source Pulse Rate 78 Pulse Rate [Apical] Pulse Rate from SpO2 Sensor Pulse Rhythm [Apical] Respiratory Rate 13 Respiratory Effort / Characteristics Respiratory Depth Blood Pressure 237/106 H Blood Pressure [Left Arm] Blood Pressure Mean 138 Blood Pressure Mean [Left Arm] Blood Pressure Position [Left Arm] Pulse Oximetry 99 99 100 Oxygen Delivery Method Nasal Cannula Nasal Cannula Oxygen Flow Rate 2.5 2.5 2.5 Fraction of Inspired Oxygen Sepsis Recent Fever Within 48 Hours Sepsis New/Unexplained Change in Mental Status Sepsis Action Taken by Nursing Oxygen Flow Rate - Titration Pulse Oximetry Post Tiitration 09/26/19 16:30 09/26/19 16:31 09/26/19 17:00 Temperature Temperature Source Pulse Rate 86 87 81 Pulse Rate [Apical] Pulse Rate from SpO2 Sensor 86 86 81 Pulse Rhythm [Apical] Respiratory Rate 21 27 H 18 Respiratory Effort / Characteristics Respiratory Depth Blood Pressure 226/168 H Blood Pressure [Left Arm] Blood Pressure Mean 198 Blood Pressure Mean [Left Arm] Blood Pressure Position [Left Arm] Pulse Oximetry 100 100 98 Oxygen Delivery Method Oxygen Flow Rate 2.5 2.5 Fraction of Inspired Oxygen Sepsis Recent Fever Within 48 Hours Sepsis New/Unexplained Change in Mental Status Sepsis Action Taken by Nursing Oxygen Flow Rate - Titration Pulse Oximetry Post Tiitration 09/26/19 17:01 09/26/19 17:30 09/26/19 17:31 Temperature Temperature Source Pulse Rate 82 75 78 Pulse Rate [Apical] Pulse Rate from SpO2 Sensor 81 76 78 Pulse Rhythm [Apical] Respiratory Rate 21 15 17 Respiratory Effort / Characteristics Respiratory Depth Blood Pressure 195/123 H 241/138 H Blood Pressure [Left Arm] Blood Pressure Mean 166 175 Blood Pressure Mean [Left Arm] Blood Pressure Position [Left Arm] Pulse Oximetry 100 100 100 Oxygen Delivery Method Oxygen Flow Rate Fraction of Inspired Oxygen 2.5 Sepsis Recent Fever Within 48 Hours Sepsis New/Unexplained Change in Mental Status Sepsis Action Taken by Nursing Oxygen Flow Rate - Titration Pulse Oximetry Post Tiitration Laboratory Data Result diagrams: 09/26/19 15:25 09/26/19 15:25 Lab Results 09/26/19 09/26/19 09/26/19 Range/Units 15:25 15:25 15:25 WBC 7.37 (4.8-10.8) K/uL RBC 4.11 L (4.2-5.4) M/uL Hgb 12.3 (12.0-16.0) g/dL Hct 37.3 (37-47) % MCV 90.8 (80-100) fL MCH 29.9 (25-34) pg MCHC 33.0 (32-36) g/dL RDW Std Deviation 47.4 H (36.4-46.3) fL RDW Coeff of Malia 14.2 (11.5-14.5) % Plt Count 195 (130-400) K/uL MPV 11.3 H (7.4-10.4) fL Immature Gran % (Auto) 0.1 % Neut % (Auto) 65.5 % Lymph % (Auto) 19.8 % [place] % (Auto) 10.7 % Eos % (Auto) 3.5 % Baso % (Auto) 0.4 % Immature Gran # (Auto) 0.01 (0.00-0.02) K/uL Neut # (Auto) 4.82 (1.4-6.5) K/uL Lymph # (Auto) 1.46 (1.2-3.4) K/uL [place] # (Auto) 0.79 H (0.11-0.59) K/uL Eos # (Auto) 0.26 (0-0.5) K/uL Baso # (Auto) 0.03 (0-0.2) K/uL PT 10.5 (9.0-12.0) Seconds INR 1.0 (0.9-1.1) Sodium 140 (136-145) mmol/L Potassium 3.6 (3.5-5.1) mmol/L Chloride 108 H (98-107) mmol/L Carbon Dioxide 27 (21-32) mmol/L Anion Gap 5.0 (3-11) BUN 26 H (7-18) mg/dl Creatinine 0.46 L (0.6-1.2) mg/dl Est Cr Clr Drug Dosing 101.0 ml/min Est GFR ( Amer) 112.0 Est GFR (Non-Af Amer) 96.6 BUN/Creatinine Ratio 55.2 H (10-20) Glucose 134 H (70-99) mg/dl Calcium 9.0 (8.5-10.1) mg/dl Magnesium 1.8 (1.8-2.4) mg/dl Administered Medications Discontinued Medications Fentanyl Citrate (Fentanyl Citrate) 100 mcg IV NOW STA Stop: 09/26/19 15:12 Last Admin: 09/26/19 15:18 Dose: 100 mcg Documented by: [id number] Fentanyl Citrate (Fentanyl Citrate) 100 mcg IV NOW STA Stop: 09/26/19 15:39 Last Admin: 09/26/19 15:49 Dose: 100 mcg Documented by: [id number] Fentanyl Citrate (Fentanyl Citrate) 50 mcg IV NOW STA Stop: 09/26/19 16:26 Last Admin: 09/26/19 16:31 Dose: 50 mcg Documented by: [id number] Hydralazine HCl (Hydralazine Hcl) 10 mg IV NOW STA Stop: 09/26/19 17:41 Last Admin: 09/26/19 18:05 Dose: 10 mg Documented by: [id number] Acetaminophen (Ofirmev) 1,000 mg in 100 mls @ 400 mls/hr IV NOW STA Stop: 09/26/19 15:25 Last Infusion: 09/26/19 15:32 Dose: 0 mls/hr Documented by: [id number] Admin: 09/26/19 15:17 Dose: 400 mls/hr Documented by: [id number] Ketorolac Tromethamine (Toradol) 15 mg IV NOW STA Stop: 09/26/19 17:14 Last Admin: 09/26/19 17:18 Dose: 15 mg Documented by: [id number] Morphine Sulfate (Morphine Sulfate) 4 mg IV NOW STA Stop: 09/26/19 17:13 Last Admin: 09/26/19 17:19 Dose: 4 mg Documented by: [id number] Discharge Plan Visit Data *Final* Discharge Date/Time: 09/26/19 18:46 Chief Complaint: Leg Injury/Pain Stated Complaint: LEG PAIN ED Provider: Rico Cole Discharge Problem: Fracture of femur Patient Disposition: Admitted As Inpatient Discharge Instructions Interventions: ED Discharge Assessment Last Done: 09/26/19 18:46 Discharge Problem: Fracture of femur Qualifiers: Encounter type: initial encounter Femur location: shaft Fracture type: closed Fracture morphology: transverse Fracture alignment: displaced Laterality: left Qualified Code(s): S72.322A - Displaced transverse fracture of shaft of left femur, initial encounter for closed fracture
[2019-09-26 15:34] LABS: Basophils # (auto) 0.03 K/uL (0-0.2); Basophils % (auto) 0.4 %; Eosinophils # (auto) 0.26 K/uL (0-0.5); Eosinophils % (auto) 3.5 %; Hematocrit (blood only) 37.3 % (37-47); Hemoglobin 12.3 g/dL (12.0-16.0); Immature Granulocytes # (auto) 0.01 K/uL (0.00-0.02); Immature Granulocytes % (auto) 0.1 %; Lymphocytes # (auto) 1.46 K/uL (1.2-3.4); Lymphocytes % (auto) 19.8 %; Mean Corpuscular Hemoglobin 29.9 pg (25-34); Mean Corpuscular Volume 90.8 fL (80-100); Mean Platelet Volume 11.3 fL (7.4-10.4); Monocytes # (auto) 0.79 K/uL (0.11-0.59); Monocytes % (auto) 10.7 %; Neutrophils # (auto) 4.82 K/uL (1.4-6.5); Neutrophils % (auto) 65.5 %; Platelet Count 195 K/uL (130-400); RDW Coefficient of Variation 14.2 % (11.5-14.5); RDW Standard Deviation 47.4 fL (36.4-46.3); Red Blood Count 4.11 M/uL (4.2-5.4); White Blood Count 7.37 K/uL (4.8-10.8)
[2019-09-26 15:43] LABS: Prothrombin Time 10.5 Seconds (9.0-12.0)
[2019-09-26 15:51] LABS: BUN Creatinine Ratio 55.2 (10-20); Est GFR (Non-African American) 96.6; Magnesium 1.8 mg/dl (1.8-2.4); Potassium 3.6 mmol/L (3.5-5.1)
--- NOTE | 2019-09-26 16:26 | XRay Report ---
XR pelvis 1-2V routine, XR femur LT 2V routine CLINICAL HISTORY: pain in L thigh COMPARISON STUDY: None. FINDINGS: There is a right total hip arthroplasty. Hardware appears intact. No acute fractures within the pelvis or hips. No dislocation. Displaced spiral fracture within the mid shaft of the left femur . This demonstrates 3 cm of overlap and 3.4 cm of posterior displacement. There is also a 2.2 cm of m edial displacement. Soft tissue swelling within the mid thigh. IMPRESSION: 1. Displaced left midshaft femoral fracture. 2. No fractures identified within the pelvis or hips. ACT 112: Negative or not required by law. Electronically signed by: Devon Sun M.D. 09/26/2019 4:24 PM
--- NOTE | 2019-09-26 16:29 | XRay Report ---
XR chest 1V portable HISTORY: Left femur fracture. pre-op COMPARISON: None. FINDINGS: The lungs are clear. Cardiac silhouette is normal in size. No pleural effusions. No pneumot horax. IMPRESSION: No acute process. ACT 112: Negative or not required by law. Electronically signed by: Devon Sun M.D. 09/26/2019 4:27 PM
[2019-09-26] MEDS ORDERED: MoRPHine SULFATE 4 MG/ML 1 ML CARP\\VIAL IV STA (17:12)
[2019-09-26] MEDS ORDERED: KETOROLAC TROMETHAMINE 15 MG/ML VIAL IV STA (17:13)
[2019-09-26] MEDS ORDERED: HydrALAZINE HCL 20 MG/ML VIAL IV STA (17:40)
[2019-09-26] MEDS ORDERED: fentaNYL citrate 100 MCG/2 ML VIAL IV PRN (17:57)
--- NOTE | 2019-09-26 18:18 | History & Physical Report ---
Date of Service September 26, 2019 Assessment & Plan (1) Fracture of femur: - Presented with displaced left midshaft femur fracture in setting of osteoporosis. - Orthopedics consulted, plan for intervention on 09/26. - Dilaudid 0.5 mg IV q1hr prn pain; Tylenol 1 gm PO q8hr scheduled. - Hip fracture protocol; urinary catheter with monitoring of I/O's. - [place] traction, 10 lb per ortho - will give IV Ativan 1 mg prior to traction. - Pt. denies acute or chronic chest pain or SOB, did have negative stress test 7.5 years ago. Calculated RCRI 3.9%. Patient is medically optimized for surgery pending results of preop EKG. (2) Osteoporosis: - H/o, monitored as outpatient. - Obtain Vit D level in the morning. (3) HTN (hypertension): - BP is acutely elevated, c/w hypertensive urgency likely related to acute uncontrolled pain -- SBP >230 in the ER. - On Lisinopril 2.5 mg daily at home -- will continue as inpatient. - Received Hydralazine 10 mg IV x 1 dose; Hydralazine 10 mg IV q6hr prn. (4) Hypothyroidism: - Continue Synthroid 88 mcg daily. - TSH in the morning. (5) DVT prophylaxis: - SCDs; holding pharmacologic ppx for procedure. Dispo: PCU tele for left femur fracture, plan for OR intervention on 09/26. DNR/DNI - confirmed with patient at bedside. History of Present Illness Chief Complaint: Left femur pain Primary Care Provider: Radha Lara Mrs. Anand is a 74 year old female with past medical history of HTN, hypothyroidism, osteoporosis who presented with a left femur fracture. Patient reports she was driving to the drug store this morning; she pressed on the brake with her right foot and placed increased pressure on her left foot/leg. She heard a loud noise, "snap", in her left leg and immediately knew she fractured her femur. Pt. has had left leg pain over the last few weeks and has been participating in PT with minimal relief. She has severe pain at site of fracture, rated as a 12/10 after presenting to the ER. She has received 200 mcg of Fentanyl in the ambulance along with 250 mcg in the ER (in addition to Toradol and Morphine IV). She denies other symptoms, including chest pain, SOB, N/V, diarrhea or constipation, headache (in setting of HTN), URI symptoms. ER course: XR showed displaced left midshaft femur fracture. Orthopedics consulted, will evaluate patient this evening. Pre op EKG pending. Admit for PCU for pain control, ortho evaluation with planned procedure. Allergies Allergy/AdvReac Type Severity Reaction Status Date / Time No Known Allergies Allergy Unverified 09/26/19 16:18 Home Medications Home Medications Medication Instructions Recorded Confirmed Type aspirin 81 mg PO HS 09/26/19 09/26/19 History calcium carbonate-vitamin D3 1 cap PO QAM 09/26/19 09/26/19 History [Calcium 600 + D(3)] ibandronate 150 mg PO MONTHLY 09/26/19 09/26/19 History ibuprofen 800 mg PO TID PRN 09/26/19 09/26/19 History levothyroxine 88 mcg PO QAM 09/26/19 09/26/19 History lisinopril 2.5 mg PO QAM 09/26/19 09/26/19 History multivitamin with minerals 1 tab PO QAM 09/26/19 09/26/19 History Past Med/Surg History Medical History (Updated 09/26/19 @ 18:13 by Judy Robertson PA-C) HTN (hypertension) Hypothyroidism Osteoporosis Surgical History (Updated 09/26/19 @ 18:11 by Judy Robertson PA-C) History of total right hip arthroplasty Family History Mother No significant family history Social History Preferred Language: Jordanian Communication Ability: Effective Rn Labor And Delivery Required: No Beliefs That Will Affect Care: None Current Living Situation: Alone Other Information That Helps Us Care for You: No Feels Safe at Home: Yes Safety Concerns: Feels Safe At This Time Smoking Status: Never smoker Hx Alcohol Use: No Hx Substance Use: No Review of Systems Review of Systems: All systems reviewed & are unremarkable except as noted in HPI & below Constitutional: + fatigue and + weakness; no fever, no chills and no anorexia Respiratory: no cough, no dyspnea, no dyspnea on exertion and no wheezing Cardiovascular: no chest pain, no palpitations and no edema Gastrointestinal: no abdominal pain, no nausea, no vomiting, no constipation and no diarrhea/loose stools Genitourinary: no dysuria, no difficulty urinating and no hematuria Musculoskeletal: + joint pain; no back pain Integumentary: no non-healing lesions Physical Exam Physical Exam: General: Resting comfortably HEENT: NC/AT; PERRLA with EOMI; [place] conjunctiva, MMM. No erythema of posterior pharynx Neck: Supple and nontender Cardiac: RRR Lungs: CTA bilaterally Abdomen: Bowel normoactive X 4; Nontender to palpation Extremities: Warm. No edema present. Tender to palpation over left lateral femur. Neuro: No focal weakness Skin: No rash Results & Data Vital Signs (Past 12 Hours) Vital Signs Temp Pulse Pulse Resp BP BP Pulse Ox 09/26/19 17:31 78 17 241/138 H 100 09/26/19 17:30 75 15 100 09/26/19 17:01 82 21 195/123 H 100 09/26/19 17:00 81 18 98 09/26/19 16:31 87 27 H 226/168 H 100 09/26/19 16:30 86 21 100 09/26/19 16:15 100 09/26/19 16:01 78 13 237/106 H 99 09/26/19 15:51 99 09/26/19 15:50 81 L 09/26/19 15:32 85 22 179/101 H 98 09/26/19 15:04 36.5 C 90 17 215/148 H 97 Laboratory Results 09/26/19 09/26/19 09/26/19 Range/Units 15:25 15:25 15:25 WBC 7.37 (4.8-10.8) K/uL RBC 4.11 L (4.2-5.4) M/uL Hgb 12.3 (12.0-16.0) g/dL Hct 37.3 (37-47) % MCV 90.8 (80-100) fL MCH 29.9 (25-34) pg MCHC 33.0 (32-36) g/dL RDW Std Deviation 47.4 H (36.4-46.3) fL RDW Coeff of Malia 14.2 (11.5-14.5) % Plt Count 195 (130-400) K/uL MPV 11.3 H (7.4-10.4) fL Immature Gran % (Auto) 0.1 % Neut % (Auto) 65.5 % Lymph % (Auto) 19.8 % [place] % (Auto) 10.7 % Eos % (Auto) 3.5 % Baso % (Auto) 0.4 % Immature Gran # (Auto) 0.01 (0.00-0.02) K/uL Neut # (Auto) 4.82 (1.4-6.5) K/uL Lymph # (Auto) 1.46 (1.2-3.4) K/uL [place] # (Auto) 0.79 H (0.11-0.59) K/uL Eos # (Auto) 0.26 (0-0.5) K/uL Baso # (Auto) 0.03 (0-0.2) K/uL PT 10.5 (9.0-12.0) Seconds INR 1.0 (0.9-1.1) Sodium 140 (136-145) mmol/L Potassium 3.6 (3.5-5.1) mmol/L Chloride 108 H (98-107) mmol/L Carbon Dioxide 27 (21-32) mmol/L Anion Gap 5.0 (3-11) BUN 26 H (7-18) mg/dl Creatinine 0.46 L (0.6-1.2) mg/dl Est Cr Clr Drug Dosing 101.0 ml/min Est GFR ( Amer) 112.0 Est GFR (Non-Af Amer) 96.6 BUN/Creatinine Ratio 55.2 H (10-20) Glucose 134 H (70-99) mg/dl Calcium 9.0 (8.5-10.1) mg/dl Magnesium 1.8 (1.8-2.4) mg/dl Code Status & VTE Plan Code Status DNR/DNI VTE Prophylaxis Plan VTE Prophylaxis will be ordered: Yes Supervising Physician Co-Signing Physician Notes I personally saw and examined the patient. I verified all dunbar points and agree with RANDA Robertson with the following exceptions and/or additions: 74 yo female admission for left femur fracture with minimal trauma. 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 Prior T-scores from 2016 L fem neck - 1.9, L-spine -2.3. O/E: HS1+2, no murmurs, CTAB, Abdo SNT, Frequent muscle spasms of left thigh, closed fracture without skin changes, variceals on left foot, Good PT/DP pulses, full sensation in feet, holding knee in flexion. A/P Femur fracture - shelton's traction to be placed with 10lb weight (can give ativan/dilaudid prior to putting in traction), this should help her significant muscle spasms, will discuss with ortho regarding likelihood of bisphosphonate contributing towards this as history and location of fracture fits atypical femur fracture related to senior living bisphosphonate use, Vit D lab in AM, Appreciate ortho management. She is medically optimized for surgery as long as her BP is relatively controlled (sBP <180) tomorrow. EKG - NSR without ischemic changes, CXR - nill acute. Hypertensive urgency - suspect related to hip fracture, no BRIAR CUTTER depression, hypoxia or concern for fat embolism. Agree with hydralazine PRN. Appears to be much improved already. PG Care Time/CCT Total # of Minutes Spent Total Time Spent with Patient: Total time spent is greater than 50% in coordination of care (as documented) at patient's floor/unit and/or counseling patient: Coding Level of Care Code 78657 Initial Inpt Care Lvl 3 Diagnoses Fracture of femur S72.322A Encounter type: initial encounter Femur location: shaft Fracture alignment: displaced Fracture morphology: transverse Fracture type: closed Laterality: left Osteoporosis M81.0 HTN (hypertension) I10 Hypothyroidism E03.9 DVT prophylaxis Z29.9 (1) Fracture of femur Encounter type: initial encounter Femur location: shaft Fracture alignment: displaced Fracture morphology: transverse Fracture type: closed Laterality: left Qualified Code(s): S72.322A - Displaced transverse fracture of shaft of left femur, initial encounter for closed fracture
[2019-09-26] MEDS ORDERED: LORazepam 1 MG/2 ML VIAL IV PRN (18:41)
[2019-09-26] MEDS ORDERED: ONDANSETRON INJ 2 MG/ML 2 ML VIAL IV PRN (18:41)
[2019-09-26] MEDS ORDERED: bisacodyL 10 MG SUPP PR PRN (18:41)
[2019-09-26] MEDS ORDERED: MAGNESIUM HYDROXIDE SUSP 30 ML UDC PO PRN (18:41)
[2019-09-26] MEDS ORDERED: HydrALAZINE HCL 20 MG/ML VIAL IV PRN (18:41)
[2019-09-26] MEDS ORDERED: HYDROmorphone INJ 0.5 MG/0.5 ML SYR IV PRN (18:41)
[2019-09-26] MEDS ORDERED: NALOXONE HCL 0.4 MG/1 ML VIAL/CARP IV PRN (18:41)
[2019-09-26] MEDS ORDERED: SODIUM CHLORIDE 0.9% 250 ML IV PRN (18:41)
--- NOTE | 2019-09-26 20:52 | Consultation Report ---
DATE OF CONSULTATION: 09/26/2019 CHIEF COMPLAINT: Left thigh pain. HISTORY OF PRESENT ILLNESS: The patient is a 74-year-old female with a known history of significant osteoporosis who was driving her car earlier today when she kind of shifted position, twisted, and felt a pop in her left femur. She has had some thigh pain for about 2 months and is going to therapy for this. She is on osteoporosis medicine for many years. She was brought to the Emergency Room with x-rays of the left displaced femoral shaft fracture. She was admitted by the medicine service and we were consulted. Denies any other injuries. PAST MEDICAL HISTORY: Significant for, 1. Osteoporosis. 2. Hypothyroidism. 3. Hypertension. The remainder of the past medical history is per the admission H and P. PAST SURGICAL HISTORY: Include, 1. Right hip fracture surgery 13 years ago. 2. Right total hip replacement done in [place] about a year and half ago. PHYSICAL EXAMINATION: VITAL SIGNS: Temperature 36.5. Vital signs stable. GENERAL: Reveals a pleasant elderly female. She is lying in bed in Barlow's traction and looks reasonably comfortable. She is actually sleeping, I had to wake her. She is awake, alert and arousable and appropriate. MUSCULOSKELETAL: Her general musculoskeletal exam reveals painless range of motion of her cervical and thoracic and lumbar spine. She has painless range of motion of both shoulders, wrist, elbows and hands and the right lower extremity. Examination of the left lower extremity reveals her to be in Barlow's traction. She has got a moderate soft tissue envelope. There is no gross malalignment. She is tender to palpate anywhere around her thigh. SKIN: All intact. NEUROLOGIC: She is neurologically intact. X-RAYS: X-rays of the left femur from the ER were reviewed. It shows transverse slightly oblique midshaft femur fracture. Bone density looks pretty good. There are no underlying signs of major pathology other than some osteoporosis, which is not visible on x-ray. ASSESSMENT: A 74-year-old white female with a known history of osteoporosis, on medicine with a left femur fracture. I suspect that she has had a stress fracture in there for the past 2 months and this just broke while she was driving today. There are no other signs of underlying pathology. PLAN: She has been admitted by the medicine service. She has been medically optimized. We will keep her n.p.o. after midnight. We will begin DVT prophylaxis including thigh-high TEDs and SCDs and likely aspirin postoperatively. We are going to take her to the operating room tomorrow and do an IM nailing of a left hip fracture. We will try to use a cephalomedullary device in order to fix her femoral neck as well as she is clearly at risk for fracture. The risks and benefits of this procedure were explained to the patient including, but not limited to, DVT, PE, , infection, neurological injury, vascular injury, bleeding problem, pain, limited range of motion, stiffness, failure to relieve her symptoms, incomplete relief of symptoms, need for further surgery in the future, persistent pain, etc. The patient understands and desires to proceed. Informed consent was obtained. She will likely need a rehab stay somewhere as she lives by herself. We are going to hold her osteoporosis medicine for now.
[2019-09-26] MEDS: DOCUSATE SODIUM/SENNA 50/8.6MG TAB PO SCH (21:19)
[2019-09-26] MEDS: HYDROmorphone INJ 1 MG/ML SYRINGE IV PRN (23:30)
[2019-09-26] MEDS: ACETAMINOPHEN 500 MG TAB PO SCH (23:30)
[2019-09-27] MEDS: HYDROmorphone INJ 1 MG/ML SYRINGE IV PRN ×2 (04:10→06:00)
[2019-09-27] MEDS: LEVOTHYROXINE SODIUM 88 MCG TABLET PO SCH (05:35)
[2019-09-27 06:14] LABS: Hematocrit (blood only) 36.2 % (37-47); Hemoglobin 11.6 g/dL (12.0-16.0); Mean Corpuscular Hemoglobin 29.6 pg (25-34); Mean Corpuscular Volume 92.3 fL (80-100); Platelet Count 201 K/uL (130-400); Red Blood Count 3.92 M/uL (4.2-5.4); White Blood Count 9.86 K/uL (4.8-10.8)
[2019-09-27 06:40] LABS: BUN Creatinine Ratio 41.3 (10-20); Calcium 9.1 mg/dl (8.5-10.1); Creatinine Clr Calc Pharmacy 61.1 ml/min; Est GFR (African American) 94.3; Est GFR (Non-African American) 81.3; Potassium 4.1 mmol/L (3.5-5.1)
[2019-09-27 06:52] LABS: Thyroid Stimulating Hormone 2.11 uIu/ml (0.300-4.500)
[2019-09-27] MEDS ORDERED: BUPIVACAINE/EPINEPHRINE 0.5% MPF 1:200,000 10 ML VIAL ONE (07:06)
[2019-09-27] MEDS ORDERED: MIDAZOLAM HCL 1 MG/ML 2ML VIAL ONE (07:08)
[2019-09-27] MEDS ORDERED: PROPOFOL IV EMULSION 10 MG/ML 20 ML VIAL IV ONE (07:08)
[2019-09-27] MEDS ORDERED: KETAMINE HCL INJ 50 MG/ML 10 ML VIAL ONE (07:08)
--- NOTE | 2019-09-27 07:39 | History & Physical Bridge Note ---
Date of Service September 27, 2019 History & Physical Bridge Note I have examined the patient, reviewed the History & Physical and in the interval since the performance of the History & Physical I have noted the following changes of clinical significance: no changes noted
--- NOTE | 2019-09-27 07:46 | Anesthesiology Consultation ---
Date of Service September 27, 2019 History Surgery Operation Date: 09/27/19 07:00 Proposed Procedures p Open Reduction Internal Fixation Femur - Lucio Morin MD Height/Weight Height: 4 ft 11 in Weight: 80.7 kg Allergies Allergy/AdvReac Type Severity Reaction Status Date / Time No Known Allergies Allergy Unverified 09/26/19 16:18 Medications Home Medications Medication Instructions Recorded Confirmed Last Taken aspirin 81 mg PO HS 09/26/19 09/26/19 09/25/19 calcium carbonate-vitamin D3 1 cap PO QAM 09/26/19 09/26/19 09/26/19 [Calcium 600 + D(3)] ibandronate 150 mg PO MONTHLY 09/26/19 09/26/19 Unknown ibuprofen 800 mg PO TID PRN 09/26/19 09/26/19 09/26/19 levothyroxine 88 mcg PO QAM 09/26/19 09/26/19 09/26/19 lisinopril 2.5 mg PO QAM 09/26/19 09/26/19 09/26/19 multivitamin with minerals 1 tab PO QAM 09/26/19 09/26/19 09/26/19 Active Medications Generic Name Dose Route Start Last Admin Trade Name Freq PRN Reason Stop Dose Admin Acetaminophen 1,000 mg 09/27/19 00:00 09/26/19 23:30 Tylenol PO 10/27/19 00:00 1,000 mg Q8H CHAN Administration Hydromorphone HCl 1 mg 09/26/19 19:19 09/27/19 06:00 Dilaudid IV 10/10/19 19:18 1 mg Q2H PRN Administration Severe Pain Levothyroxine Sodium 88 mcg 09/27/19 06:30 09/27/19 05:35 Synthroid PO 10/27/19 06:29 Not Given DAILYBB CHAN Ondansetron HCl 4 mg 09/26/19 18:41 09/26/19 18:53 Zofran IV 10/26/19 18:40 4 mg Q6H PRN Administration Nausea And Vomiting Senna/Docusate Sodium 2 tab 09/26/19 21:00 09/26/19 21:19 Senokot S PO 10/26/19 20:59 2 tab HS CHAN Administration NPO Date Last Intake of Fluids: 09/26/19 Time Last Intake of Fluids: 20:00 Date Last Intake of Solids: 09/26/19 Time Last Intake of Solids: 20:00 Past Medical History Medical History HTN (hypertension) Hypothyroidism Osteoporosis Exercise / Class Metabolic Activity II 4-5 Yardwork/Stairs/Walk up hill Past Family History Family History Mother No significant family history Past Surgical History Surgical History History of total right hip arthroplasty Past Anesthesia History No Hx of Anesthesia Complications and No Family Hx of Anesthesia Complications History of PONV No Hx of PONV and No Hx of Motion Sickness Social History Smoking Status: Never smoker Hx Alcohol Use: No Hx Substance Use: No Physical Exam Vital Signs Last Vital Signs Temp 36.5 C 09/27/19 04:00 Pulse 83 09/27/19 04:00 Resp 20 09/27/19 04:00 BP 115/79 09/27/19 04:00 Pulse Ox 98 09/27/19 04:00 Testing Laboratory Results 09/27/19 05:48 09/27/19 05:48 PT 10.5 Seconds (9.0-12.0) 09/26/19 15:25 INR 1.0 (0.9-1.1) 09/26/19 15:25 Blood Type O Positive 09/27/19 05:48 Antibody Screen NEGATIVE 09/27/19 05:48
[2019-09-27] MEDS ORDERED: ATROPINE SULFATE 0.1 MG/ML 10ML SYR IV PRN (07:47)
[2019-09-27] MEDS ORDERED: fentaNYL citrate 100 MCG/2 ML VIAL IV PRN (07:47)
[2019-09-27] MEDS ORDERED: HYDROmorphone INJ 2 MG/ML SYR/VIAL IV PRN (07:47)
[2019-09-27] MEDS ORDERED: PROMETHAZINE HCL 12.5 MG in SODIUM CHLORIDE 0.9% 50 ML IV PRN (07:47)
[2019-09-27] MEDS ORDERED: METOCLOPRAMIDE HCL INJ 5 MG/ML 2 ML VIAL IV PRN (07:47)
[2019-09-27] MEDS ORDERED: ePHEDrine sulfate 50 MG/ML AMP IV PRN (07:47)
[2019-09-27] MEDS ORDERED: ONDANSETRON INJ 2 MG/ML 2 ML VIAL IV PRN (07:47)
[2019-09-27] MEDS ORDERED: BUPIVACAINE 0.5 % 5 MG/1 ML PF 10ML VIAL ONE (07:50)
[2019-09-27] MEDS ORDERED: CEFAZOLIN 2000MG 2,000 MG/15 ML SYR IV ONE (07:58)
[2019-09-27] MEDS ORDERED: PHENYLEPHRINE HCL 10 MG/ML VIAL ONE (08:30)
[2019-09-27] MEDS ORDERED: PHENYLEPHRINE 100MCG/ML 5ML SYR ONE (08:30)
--- NOTE | 2019-09-27 10:09 | Post Operative Brief Note ---
PG Immediate Post Op with CF Date of Surgery September 27, 2019 Pre & Post Diagnosis Operation Date: 09/27/19 08:00 Pre-Op Diagnosis: LEFT FEMUR FRACTURE Post-Op Diagnosis: LEFT FEMUR FRACTURE I identified the patient and participated in the time-out.: Yes Procedure Operation Date: 09/27/19 08:00 Actual Procedures p Intramedullary nailing of left femur fracture(Left) - Lucio Morin MD Surgeon Lucio Morin MD Building Carpenter Helper Lucero Victor, PAC Estimated Blood Loss 100 Findings Consistent with Post-Op Diagnosis Fluids 1000 cc Specimens Specimen Description: no specimen per surgeon Drains Stallworth Catheter (patient arrived to OR with stallworth intact) Anesthesia Type Spinal MAC Complications none Disposition Accompanied Patient To Recovery: Yes Disposition: Recovery Room
--- NOTE | 2019-09-27 10:15 | Fluoroscopy Report ---
FL femur LT 2V HISTORY: 74 years-old Female LT TROCH NAIL STATUS post placement of a left intratrochanteric nail COMPARISON: Left femur radiographs 09/26/2019 TECHNIQUE: 6 spot fluoroscopic images of the left femur were obtained utilizing 298.7 seconds fluoros copy time FINDINGS: Status post placement of a intratrochanteric canal with elongated medullary brad fixating the previous ly described proximal femoral shaft fracture. There is improved alignment with minimal persistent dis placement. Osteoarthritis of the knee. Hardware appears intact. IMPRESSION: Fluoroscopic assistance as above. Please see operative report for further details. ACT 112: Negative or not required by law. The above report was generated using voice recognition software. It may contain grammatical, syntax o r spelling errors. Electronically signed by: Santino Cummings M.D. 09/27/2019 10:13 AM
--- NOTE | 2019-09-27 10:25 | Operative Report ---
Post Operative Report Pre & Post Diagnosis Operation Date: 09/27/19 08:00 Pre-Op Diagnosis: LEFT FEMUR FRACTURE Post-Op Diagnosis: LEFT FEMUR FRACTURE I identified the patient and participated in the time-out.: Yes Procedure Operation Date: 09/27/19 08:00 Actual Procedures p Intramedullary nailing of left femur fracture(Left) - Lucio Morin MD Surgeon Lucio Morin MD [employer] Senator Lucero Victor, PAC Estimated Blood Loss 100 Findings Consistent with Post-Op Diagnosis Fluids 1000 cc. Specimens None. Drains None. Anesthesia Type Spinal MAC Complications none Disposition Accompanied Patient To Recovery: Yes Disposition: Recovery Room Indications Patient is a 74-year-old female with a long history of osteoporosis on osteoporotic medicine management. As she is had a 2-month history of left thigh pain in the nystatin to twist injury yesterday when she was in her car and her femur broke. She is brought the emergency room x-rays were displaced femur fracture. The patient was admitted to the medicine service, medically optimized and indicated for surgical fixation. Description of Procedure Operative implants consist of: 1. Synthes left 320 mm x 10 mm long trochanteric nail. 2. 80 mm helical blade. 3. 5 x 42 mm distal interlocking screw. Patient was taken to the operating identified and placed in the operating table supine position protectors were properly padded. IV antibiotics arrived by anesthesia team. A spinal anesthetic was employed by anesthesia team. The patient then placed on the fracture table. The left leg was placed in traction the right leg was placed in a well leg mariano. The right hip was fairly stiff from her previous hip surgery. Some longitudinal traction was applied to the left leg and was internally rotated. There was still displacement of the fracture but was lined up as best we could do with traction. The left hip and leg were then scrubbed with Hibiclens and then prepped with ChloraPrep and draped in usual sterile fashion. A curvilinear incision was made just proximal to the tip of the trochanter and extended proximally for about 10 cm. Sharp dissection Through subcutaneous tissue down to the abductor hip fascia and gluteal fascia. She had a very thick soft tissue envelope. I then placed a guidewire just lateral to the tip of the trochanter and in line with the IM canal both the AP and lateral planes. It was advanced down the canal. Several adjustments were made to this and then it was passed down the canal and overreamed with 17 mm reamer. The guidewire was then removed and a ball-tipped guidewire was exchanged for this. We tried to attempted to pass this across the fracture site but had the difficulty doing that. We placed the reduction tool inside the femur and after several manipulations were able to manipulate the guidewire across the fracture site into the distal fragment. We then measured for nail length and a 320 mm nail was selected. The a guidewire was then overreamed with the reamers beginning with an 8 and half in the reaming and half millimeter increments up to 11. Her canal was extremely narrow. A 10 mm x 3 and 20 mm left long trochanteric nail was then passed over the guidewire and the guidewire was removed. We tapped this into position. The lateral aiming arm was attached. A stab incision was made in the lateral thigh and the aiming arm was advanced to the lateral aspect of the femur. Guidewire was placed in the central aspect of the femoral head and neck in both AP and lateral planes. The guidewire length was measured. An 80 mm nail helical blade was selected. This was then tapped over the guidewire and into position. Once final position was secured, the proximal setscrew was tightened and the proximal aiming arm was removed. Final x-rays were obtained. Attention drawn toward distal interlocking. Using the perfect wrangell technique the dynamic hole distally was centered. A stab incision was made and a distal interlocking screw was placed in the standard fashion. We made sure this was a little longer in order to secure rotation and stabilization. We placed in the this in the dynamic hole as this was a fairly transverse fracture. Some final x-rays were obtained. Attention drawn toward closing. All wounds were irrigated extensively. The fascia the proximal wound was then closed in 3 layers with a 2 deep layers with #2-0 Vicryl suture and subcutaneous tissues with 2-0 Dexon suture. The remaining incisions were closed with subcutaneous tissues with 2-0 Dexon suture in a buried interrupted fashion with skin of all wounds were closed with skin kori. Leg was then cleaned and dried a sterile dressing composed of Xeroform, 4 x 4's, ABD pads, and foam tape was applied. The patient was then taken off the fracture table and transferred to the recovery room in stable condition. Patient tolerated procedure well no complications. I attest to the content of the Intraoperative Record and any orders documented therein. Any exceptions are noted below.
--- NOTE | 2019-09-27 10:31 | Anesthesiology Progress Note ---
Date of Service September 27, 2019 Anesthesia Post Procedure Vital Signs Vital Signs: Temp Pulse Pulse Pulse Resp BP BP 09/27/19 10:25 77 15 98/47 L 09/27/19 10:15 69 15 109/43 L 09/27/19 10:09 36.0 C L 74 14 100/48 L 09/27/19 07:20 36.9 C 79 10 L 113/57 L 09/27/19 04:00 36.5 C 83 20 115/79 09/27/19 00:25 36.5 C 77 21 132/75 09/26/19 19:26 36.5 C 86 20 102/51 L 09/26/19 18:46 89 18 140/121 H 09/26/19 18:08 79 21 177/143 H 09/26/19 18:00 80 16 219/105 H 09/26/19 17:31 78 17 241/138 H 09/26/19 17:30 75 15 09/26/19 17:01 82 21 195/123 H 09/26/19 17:00 81 18 09/26/19 16:31 87 27 H 226/168 H 09/26/19 16:30 86 21 09/26/19 16:15 09/26/19 16:01 78 13 237/106 H 09/26/19 15:51 09/26/19 15:50 09/26/19 15:32 85 22 179/101 H 09/26/19 15:04 36.5 C 90 17 215/148 H Pulse Ox 09/27/19 10:25 97 09/27/19 10:15 99 09/27/19 10:09 95 09/27/19 07:20 94 09/27/19 04:00 98 09/27/19 00:25 100 09/26/19 19:26 100 09/26/19 18:46 100 09/26/19 18:08 100 09/26/19 18:00 700 H 09/26/19 17:31 100 09/26/19 17:30 100 09/26/19 17:01 100 09/26/19 17:00 98 09/26/19 16:31 100 09/26/19 16:30 100 09/26/19 16:15 100 09/26/19 16:01 99 09/26/19 15:51 99 09/26/19 15:50 81 L 09/26/19 15:32 98 09/26/19 15:04 97 Pain Intensity Left Thigh: Pain Intensity: 3 Transfer of Care Handoff Completed per policy Notes Mental Status: alert / awake / arousable and participated in evaluation Patient Amnestic to Procedure: Yes Nausea / Vomiting: adequately controlled Pain: adequately controlled Airway Patency, RR, SpO2: stable & adequate BP & HR: stable & adequate Hydration State: stable & adequate Neuraxial Anesthesia: was administered and sensory block is resolving Anesthetic Complications: no major complications apparent
[2019-09-27] MEDS ORDERED: NALOXONE HCL 0.4 MG/1 ML VIAL/CARP IV PRN (10:58)
[2019-09-27] MEDS: ACETAMINOPHEN 500 MG TAB PO SCH ×3 (12:07→23:38)
[2019-09-27] MEDS: HYDROmorphone INJ 0.5 MG/0.5 ML SYR IV PRN ×2 (12:08→15:40)
[2019-09-27] MEDS: LACTATED RINGER'S 1,000 ML IV SCH ×2 (12:58→20:13)
--- NOTE | 2019-09-27 18:24 | Electrocardiogram Report ---
Test Reason : Blood Pressure : / mmHG Vent. Rate : 066 BPM Atrial Rate : 066 BPM P-R Int : 166 ms QRS Dur : 100 ms QT Int : 402 ms P-R-T Axes : 067 048 047 degrees QTc Int : 421 ms Normal sinus rhythm Normal ECG No previous ECGs available Confirmed by Krunal Preston ([id number]) on 09/27/2019 6:24:24 PM Referred By: REFERRED SELF Confirmed By:Sesar Preston
[2019-09-27] MEDS: ASPIRIN 81 MG ECTAB PO SCH (20:08)
[2019-09-27] MEDS: DOCUSATE SODIUM/SENNA 50/8.6MG TAB PO SCH (20:08)
[2019-09-28] MEDS: HYDROmorphone INJ 0.5 MG/0.5 ML SYR IV PRN ×4 (03:09→21:00)
[2019-09-28] MEDS: LEVOTHYROXINE SODIUM 88 MCG TABLET PO SCH (03:13)
[2019-09-28] MEDS: LACTATED RINGER'S 1,000 ML IV SCH (03:15)
[2019-09-28 05:51] LABS: Basophils # (auto) 0.01 K/uL (0-0.2); Basophils % (auto) 0.2 %; Eosinophils # (auto) 0.05 K/uL (0-0.5); Eosinophils % (auto) 0.8 %; Hematocrit (blood only) 25.5 % (37-47); Hemoglobin 8.3 g/dL (12.0-16.0); Immature Granulocytes # (auto) 0.02 K/uL (0.00-0.02); Immature Granulocytes % (auto) 0.3 %; Lymphocytes # (auto) 0.78 K/uL (1.2-3.4); Lymphocytes % (auto) 11.9 %; Mean Corpuscular Hemoglobin 29.5 pg (25-34); Mean Corpuscular Hgb Conc 32.5 g/dL (32-36); Mean Corpuscular Volume 90.7 fL (80-100); Mean Platelet Volume 11.1 fL (7.4-10.4); Monocytes # (auto) 0.82 K/uL (0.11-0.59); Monocytes % (auto) 12.5 %; Neutrophils # (auto) 4.88 K/uL (1.4-6.5); Neutrophils % (auto) 74.3 %; Platelet Count 152 K/uL (130-400); RDW Coefficient of Variation 14.5 % (11.5-14.5); RDW Standard Deviation 48.3 fL (36.4-46.3); Red Blood Count 2.81 M/uL (4.2-5.4); White Blood Count 6.56 K/uL (4.8-10.8)
[2019-09-28 05:53] LABS: BUN Creatinine Ratio 56.6 (10-20); Calcium 8.2 mg/dl (8.5-10.1); Creatinine Clr Calc Pharmacy 137.4 ml/min; Est GFR (African American) 126.2; Est GFR (Non-African American) 108.9; Potassium 4.1 mmol/L (3.5-5.1)
--- NOTE | 2019-09-28 07:18 | Hospitalist Progress Note ---
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 Suspected stress fracture over the past month as she has been having bone pain here Continue Dilaudid 0.5 mg IV q1hr prn pain; Tylenol 1 gm PO q8hr scheduled. Appreciate orthopedic management with IM nail 09/26 (2) Osteoporosis: Vitamin D WNL Stop bisphosphonate as suspect fracture related to predatory animal exterminator use of this rather than osteoporosis given site of fracture and prior T- scores (3) HTN (hypertension): - Hypertensive urgency on admission related to acute fracture and pain, now low normal. - On Lisinopril 2.5 mg daily at home -- will continue as inpatient. - Hydralazine 10 mg IV q6hr prn. (4) Hypothyroidism: - Continue Synthroid 88 mcg daily. - TSH 2.11 (5) DVT prophylaxis: - SCDs - Chmical prophylaxis as per ortho management Continue on ortho surgical bed, PT/OT DNR/DNI - confirmed with patient on admission Admission and Anticipated Discharge Date Admission Date: September 26, 2019 Subjective Patient seen post operatively. Initially vomited in relation to dilaudid use but now doing well drinking water. Left arm infiltrated IV, patient reported pain here. Improved pain from when I last saw her in the ER. Discussed discontinuation of bisphosphonates as this fracture appears to be related to predatory animal exterminator use of this. She reports she was supposed to have repeat DEXA scan but was postponed therefore her most recent one is likely the report from 2016 in [facility]. Review of Systems Review of Systems: All systems reviewed & are unremarkable except as noted in HPI & below Physical Exam Constitutional: well developed and well nourished; no acute distress Eyes: + anicteric sclerae; normal pupil size ENMT: external ear and nose normal, oropharynx normal Neck: trachea midline, no thyromegaly Respiratory: normal respiratory effort, lungs clear to auscultation Cardiovascular: RRR, no murmur, no edema Gastrointestinal (Abdomen): Inspection/Auscultation: abdomen normal to inspection and normal bowel sounds; abdomen not distended Percussion/Palpation: abdomen soft; abdomen nontender, no guarding and abdomen not rigid Skin: no rashes, warm and dry Neurologic: moves all extremities and awake NV intact distally to fracture Psychiatric: A+Ox3, euthymic affect Results & Data ([facility]) Vital Signs (Past 12 Hours) Vital Signs Temp Pulse Resp BP Pulse Ox 09/28/19 06:59 37.1 C 98 H 18 91/55 L 93 09/28/19 03:15 37.0 C 99 H 20 107/67 92 09/27/19 23:19 37.1 C 90 16 104/67 95 09/27/19 21:24 36.7 C PG Care Time/CCT Total # of Minutes Spent Total Time Spent with Patient: Total time spent is greater than 50% in coordination of care (as documented) at patient's floor/unit and/or counseling patient: Coding Level of Care Code 39656 Subseq Hosp Care Lvl 2 Diagnoses Fracture of femur S72.322A Encounter type: initial encounter Femur location: shaft Fracture alignment: displaced Fracture morphology: transverse Fracture type: closed Laterality: left Osteoporosis M81.0 HTN (hypertension) I10 Hypothyroidism E03.9 DVT prophylaxis Z29.9 (1) Fracture of femur Encounter type: initial encounter Femur location: shaft Fracture alignment: displaced Fracture morphology: transverse Fracture type: closed Laterality: left Qualified Code(s): S72.322A - Displaced transverse fracture of shaft of left femur, initial encounter for closed fracture
--- NOTE | 2019-09-28 08:14 | Progress Notes ---
DATE: 09/28/2019 SUBJECTIVE: A 74-year-old white female postop day 1 from IM nailing of a left osteoporotic femur fracture. She is doing well. Some pain, but improved. No new complaints. OBJECTIVE: VITAL SIGNS: Temperature 37.1. Vital signs stable. GENERAL: Pleasant elderly female. She is sitting up in bed and was talking on the phone this morning. She looks pretty comfortable. EXTREMITIES: Examination of the left leg reveals the dressing to be clean, dry and intact. Leg is well aligned. She can dorsiflex and plantarflex her foot appropriately. LABORATORY DATA: Hemoglobin 8.3. Hematocrit 25.5. Electrolytes are stable. ASSESSMENT: A 74-year-old white female postop day 1 from IM nailing of a left femur fracture likely related to osteoporosis medicine. She is doing pretty well. She has been anemic, but without symptoms. There is probably some degree of a dilution involved based on her creatinine. PLAN: 1. DVT prophylaxis including thigh-high TEDs, SCDs, and aspirin twice a day for the next 6 weeks. 2. PT/OT. She can fully weightbear on this left leg as tolerated. 3. Medical management as per the medicine service. 4. Disposition: She will be okay for discharge from orthopedic standpoint any time medically stable. I need to see her back somewhere between 2 and 3 weeks out from surgery. She can weightbear as tolerated on this left leg. Any orthopedic questions can be directed to me at [phone].
[2019-09-28] MEDS: ASPIRIN 81 MG ECTAB PO SCH ×2 (09:01→21:03)
[2019-09-28] MEDS: ACETAMINOPHEN 500 MG TAB PO SCH ×3 (09:01→23:54)
--- NOTE | 2019-09-28 09:27 | XRay Report ---
XR chest 1V portable CLINICAL HISTORY: 74 years-old Female presenting with hypoxia. TECHNIQUE: Portable upright AP view of the chest was obtained. COMPARISON: 09/26/2019. FINDINGS: Atherosclerosis of the aortic arch. Cardiac silhouette mildly enlarged. Minimal bibasilar opacities, left greater than right. No large effusion or pneumothorax. Degenerative changes of the thoracic spin e. Upper abdomen normal. IMPRESSION: 1. Mild cardiomegaly. 2. Minimal bibasilar opacities, left greater than right, possibly atelectasis and new from prior. ACT 112: Negative or not required by law. Electronically signed by: Joel Victor M.D. 09/28/2019 9:25 AM
--- NOTE | 2019-09-28 10:20 | Hospitalist Progress Note ---
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 Suspected stress fracture over the past month as she has been having bone pain here Continue Dilaudid 0.5 mg IV q1hr prn pain; Tylenol 1 gm PO q8hr scheduled. Appreciate orthopedic management with IM nail 09/26 (2) Osteoporosis: Vitamin D WNL Stop bisphosphonate as suspect fracture related to care home use of this rather than osteoporosis given site of fracture and prior T- scores (3) HTN (hypertension): - Hypertensive urgency on admission related to acute fracture and pain, now low normal. - On Lisinopril 2.5 mg daily at home -- will continue as inpatient. - Hydralazine 10 mg IV q6hr prn. (4) Hypothyroidism: - Continue Synthroid 88 mcg daily. - TSH 2.11 (5) DVT prophylaxis: - SCDs - Chmical prophylaxis as per ortho management Continue on ortho surgical bed, PT/OT DNR/DNI - confirmed with patient on admission (6) Acute blood loss anemia: will check hemoglobin. Currently on hemoglobin of 8 from 11. will hold blood transfusion for now. (7) Atelectasis: recommended to continue incentive spiormetry Admission and Anticipated Discharge Date Admission Date: September 26, 2019 Subjective 74 yo female reports feeling well. She states she conitinues to require oxygen, but reports she does not take it at home. Patient reports having dizziness when ambulating. Review of Systems Review of Systems: All systems reviewed & are unremarkable except as noted in HPI & below Physical Exam Physical Exam: Constitutional: well developed and well nourished; no acute distress Eyes: + anicteric sclerae; normal pupil size ENMT: external ear and nose normal, oropharynx normal Neck: trachea midline, no thyromegaly Respiratory: normal respiratory effort, lungs clear to auscultation Cardiovascular: RRR, no murmur, no edema Gastrointestinal (Abdomen): Inspection/Auscultation: abdomen normal to inspection and normal bowel sounds; abdomen not distended Percussion/Palpation: abdomen soft; abdomen nontender, no guarding and abdomen not rigid Skin: no rashes, warm and dry Neurologic: moves all extremities and awake NV intact distally to fracture Psychiatric: A+Ox3, euthymic affect Results & Data ([place]) Vital Signs (Past 12 Hours) Vital Signs Temp Pulse Resp BP Pulse Ox 09/28/19 06:59 37.1 C 98 H 18 91/55 L 93 09/28/19 03:15 37.0 C 99 H 20 107/67 92 09/27/19 23:19 37.1 C 90 16 104/67 95 PG Care Time/CCT Total # of Minutes Spent Total Time Spent with Patient: Total time spent is greater than 50% in coordination of care (as documented) at patient's floor/unit and/or counseling patient: Coding Level of Care Code 11786 Subseq Hosp Care Lvl 3 Diagnoses Fracture of femur S72.322A Encounter type: initial encounter Femur location: shaft Fracture alignment: displaced Fracture morphology: transverse Fracture type: closed Laterality: left Osteoporosis M81.0 HTN (hypertension) I10 Hypothyroidism E03.9 DVT prophylaxis Z29.9 Acute blood loss anemia D62 Atelectasis J98.11 Time Spent (min) 35 (1) Fracture of femur Encounter type: initial encounter Femur location: shaft Fracture alignment: displaced Fracture morphology: transverse Fracture type: closed Laterality: left Qualified Code(s): S72.322A - Displaced transverse fracture of shaft of left femur, initial encounter for closed fracture
[2019-09-28 12:45] LABS: Hematocrit (blood only) 26.2 % (37-47); Hemoglobin 8.5 g/dL (12.0-16.0)
[2019-09-28] MEDS: DOCUSATE SODIUM/SENNA 50/8.6MG TAB PO SCH (20:51)
[2019-09-28] MEDS ORDERED: KETOROLAC TROMETHAMINE 15 MG/ML VIAL IV PRN (22:21)
[2019-09-29] MEDS: LEVOTHYROXINE SODIUM 88 MCG TABLET PO SCH (05:48)
[2019-09-29 05:50] LABS: Basophils # (auto) 0.03 K/uL (0-0.2); Basophils % (auto) 0.5 %; Eosinophils # (auto) 0.25 K/uL (0-0.5); Eosinophils % (auto) 4.1 %; Immature Granulocytes # (auto) 0.01 K/uL (0.00-0.02); Immature Granulocytes % (auto) 0.2 %; Lymphocytes # (auto) 1.07 K/uL (1.2-3.4); Lymphocytes % (auto) 17.4 %; Mean Corpuscular Hemoglobin 30.3 pg (25-34); Mean Corpuscular Hgb Conc 33.3 g/dL (32-36); Mean Corpuscular Volume 90.9 fL (80-100); Mean Platelet Volume 11.5 fL (7.4-10.4); Monocytes # (auto) 0.98 K/uL (0.11-0.59); Monocytes % (auto) 15.9 %; Neutrophils # (auto) 3.82 K/uL (1.4-6.5); Neutrophils % (auto) 61.9 %; Platelet Count 133 K/uL (130-400); RDW Coefficient of Variation 14.7 % (11.5-14.5); RDW Standard Deviation 49.3 fL (36.4-46.3); Red Blood Count 2.64 M/uL (4.2-5.4); White Blood Count 6.16 K/uL (4.8-10.8)
[2019-09-29] MEDS: HYDROmorphone INJ 0.5 MG/0.5 ML SYR IV PRN (06:15)
[2019-09-29] MEDS: ACETAMINOPHEN 500 MG TAB PO SCH (07:49)
[2019-09-29] MEDS: ASPIRIN 81 MG ECTAB PO SCH (07:51)
--- NOTE | 2019-09-29 08:23 | Progress Notes ---
DATE: 09/29/2019 SUBJECTIVE: A 74-year-old white female postop day 2 from IM nailing of a left femoral shaft fracture. She is doing better this morning. Pain is a little bit better. No new complaints. OBJECTIVE: VITAL SIGNS: Temperature 36.7. Vital signs stable. GENERAL: Shows a pleasant elderly female. She is lying in bed, looks pretty comfortable. EXTREMITIES: Examination of the left leg reveals the incision is clean, dry and intact. A little bit of serous drainage from the proximal incision. Leg is well aligned. She can dorsiflex and plantarflex her foot appropriately. She is neurologically intact. LABORATORY DATA: Hemoglobin 8.0. Hematocrit 24.0. Electrolytes are stable. ASSESSMENT: A 74-year-old white female postop day 2 from IM nailing of a left femoral shaft fracture, doing pretty well. Pain is controlled. She is a bit anemic, but asymptomatic. Bleeding should be stopped and currently no evidence of any need for transfusion. PLAN: 1. DVT prophylaxis including thigh-high TEDs, SCDs, and aspirin twice a day. 2. PT/OT. Weight bear as tolerated. She can fully weightbear on this leg as tolerated. 3. Anemia. Continue iron supplementation. I do not think she needs blood transfusion and should be stable from here on out. 4. Disposition: She is orthopedically okay for discharge any time. I need to see her back 2 weeks out from surgery. She is weightbearing as tolerated in this left leg. Routine wound care. Any questions can be directed to me at [phone].
[2019-09-29] MEDS ORDERED: OXYCODONE HCL IR 5 MG TAB (IMMEDIATE RELEASE) PO PRN (13:11)
[2019-09-29] MEDS ORDERED: TRAMADOL HCL 50 MG TABLET PO PRN (13:12)
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
== END 2019-09-29 16:00 | DRG 482 ==
LOC: ED 15:02 → 2E 17:41 → SUATTDRO 17:41 → 2E 18:46 → 3W 09-27 10:09

== ENCOUNTER 2021-01-06 08:32 | Inpatient (IN) ==
--- NOTE | 2020-12-16 15:53 | PAT Medication Instructions ---
Medication Instructions Date of Service December 16, 2020 Home Medications Medication Instructions Recorded diclofenac sodium [Voltaren] 2 g TOPICAL QID PRN #150 g 11/24/20 amoxicillin 500 mg tablet 2,000 mg PO ONCE #4 tab 11/25/20 oxycodone 5 mg tablet 5 mg PO Q6 PRN #30 tab 11/30/20 Calcium 600 + D(3) 1 cap PO BID levothyroxine 88 mcg PO QAM multivitamin with minerals 1 tab PO QDL cyclobenzaprine 10 mg tablet 10 mg PO HS PRN ibandronate 150 mg tablet 150 mg PO MO acetaminophen 1,000 mg PO Q4 PRN aspirin 81 mg PO HS diclofenac sodium [Voltaren] 2 g TOPICAL QID PRN ibuprofen [Advil] 600 mg PO Q4H PRN amoxicillin 500 mg tablet 2,000 mg PO ONCE oxycodone 5 mg tablet 5 mg PO Q6 PRN Continue as directed amoxicillin 500 mg tablet 2,000 mg PO ONCE (per Dr. Leblanc instructions) ibandronate 150 mg tablet 150 mg PO MO ASK your surgeon for instructions ibuprofen [Advil] 600 mg PO Q4H PRN ASK your prescriber and surgeon aspirin 81 mg PO HS STOP taking 24 hours before surgery diclofenac sodium [Voltaren] 2 g TOPICAL QID PRN DO NOT take the morning of surgery Calcium 600 + D(3) 1 cap PO BID multivitamin with minerals 1 tab PO QDL Take morning of surgery With a small sip of water, OTHERWISE NOTHING TO EAT OR DRINK AFTER MIDNIGHT: levothyroxine 88 mcg PO QAM acetaminophen 1,000 mg PO Q4 PRN (okay to take up to 4 hours prior to surgery if needed) oxycodone 5 mg tablet 5 mg PO Q6 PRN (okay to take up to 4 hours prior to surgery if needed) Take evening before surgery Calcium 600 + D(3) 1 cap PO BID cyclobenzaprine 10 mg tablet 10 mg PO HS PRN (if needed) acetaminophen 1,000 mg PO Q4 PRN (if needed) oxycodone 5 mg tablet 5 mg PO Q6 PRN (if needed) Other Notes If you have any questions please call us at [phone] or [phone] or [phone] or [phone]
--- NOTE | 2020-12-20 14:09 | Anesthesiology Consultation ---
Date of Service December 20, 2020 Assessment & Plan (1) Encounter for pre-operative examination: COVID Status: As of 12/20 assessment, patient denies travel to endemic area, known exposure/sick contacts, or symptoms of COVID19. Patient advised to adhere to social distancing guidelines, wear a mask in public and avoid large crowds or unnecessary travel in the 2 weeks leading up to surgery. Preoperative COVID19 testing to be completed prior to surgery per surgeon's arrangements. Pat ient encouraged to be extra cautious/conscientious with COVID precautions between COVID testing and surgery. Chart Review Chart Review: Acceptable Risk for Surgery and Patient seen in Pre Admission Testing Teaching & Discussion Instructed NPO after midnight before surgery, except medications with 15 cc of water. Medication instructions provided according to the PAT guidelines. History Surgery Operation Date: 01/06/21 08:40 Proposed Procedures p Left Total Shoulder Arthroplasty Leanne - Jay Leblanc, Height/Weight Height: 4 ft 11 in Weight: 85.1 kg Allergies Allergy/AdvReac Type Severity Reaction Status Date / Time adhesive tape Allergy Intermediate tears skin Verified 12/13/20 12:23 Medications Home Medications Medication Instructions Recorded Confirmed Last Taken Calcium 600 + D(3) 1 cap PO BID 09/26/19 12/13/20 09/26/19 levothyroxine 88 mcg PO QAM 09/26/19 12/13/20 09/26/19 multivitamin with minerals 1 tab PO QDL 09/26/19 12/13/20 09/26/19 cyclobenzaprine 10 mg tablet 10 mg PO HS PRN 10/25/20 12/13/20 Unknown ibandronate 150 mg tablet 150 mg PO MO 10/25/20 12/13/20 Unknown acetaminophen 1,000 mg PO Q4 PRN 11/24/20 12/13/20 Unknown aspirin 81 mg PO HS 11/24/20 12/13/20 Unknown diclofenac sodium [Voltaren] 2 g TOPICAL QID PRN #150 g 11/24/20 12/13/20 Unknown ibuprofen [Advil] 600 mg PO Q4H PRN 11/24/20 12/13/20 Unknown amoxicillin 500 mg tablet 2,000 mg PO ONCE #4 tab 11/25/20 12/13/20 Unknown oxycodone 5 mg tablet 5 mg PO Q6 PRN #30 tab 11/30/20 12/13/20 Unknown Past Medical History Medical History Degenerative disc disease HTN (hypertension) pt denies Hx of fracture T11 compression fracture --> no surgical intervention, treated with rehab & physical therapy Hx of Graves' disease radioactive iodine treatment Hypothyroidism Osteoarthritis Osteoporosis Right thigh pain Stroke (~2008) R eye, ~15yrs ago. folllows with Dr Degroot ([facility]) with injections into the right eye every 6 weeks. Exercise / Class Metabolic Activity III < 4 Walking/Shop/Light housework (Using walker currently due to hip pain, denies CP or SOB, just limited by hip pain) Past Family History Family History Mother No problems noted. Other No family history of adverse response to anesthesia Past Surgical History Surgical History H/O vein stripping bilateral H/O wisdom tooth extraction History of open reduction and internal fixation (ORIF) procedure Left femur History of total right hip arthroplasty Past Anesthesia History No Hx of Anesthesia Complications and No Family Hx of Anesthesia Complications History of PONV No Hx of PONV and No Hx of Motion Sickness Social History Smoking Status: Never smoker Do You Dip or Chew Tobacco: No Hx Alcohol Use: No Hx Substance Use: No substance use type: does not use Review of Systems Pt denies any recent chest pain, shortness of breath, palpitations, cough, fever, URI, or uncontrolled acid reflux. Physical Exam Vital Signs BP: 143/84 P: 91bpm SPO2: 96% RA T: 98.3 F R: 16 ENMT Mouth: + dental restorations (few crowns); no chipped teeth and no loose teeth Thyromental Distance: > or= 3.5 Finger Breadths Mallampati Class: II Neck + short neck; neck extension not limited Respiratory normal respiratory effort, lungs clear to auscultation Cardiovascular Rate/Rhythm: regular rate and regular rhythm Heart Sounds: + murmur (I/ systolic) Extremities: no edema Musculoskeletal Spine: + kyphosis (of thoracic spine) Lab Results Anesthesia Preop Results Results Anesthesia Widget: WBC 5.62 K/uL (4.8-10.8) 12/20/20 Hgb 11.6 g/dL (12.0-16.0) L 12/20/20 Hct 36.5 % (37-47) L 12/20/20 Plt 238 K/uL (130-400) 12/20/20 Na 141 mmol/L (136-145) 12/20/20 K 4.0 mmol/L (3.5-5.1) 12/20/20 Cl 109 mmol/L (98-107) H 12/20/20 CO2 29 mmol/L (21-32) 12/20/20 BUN 20 mg/dl (7-18) H 12/20/20 Creat 0.44 mg/dl (0.6-1.2) L 12/20/20 Glucose Level 104 mg/dl (70-99) H 12/20/20 POC Glucose 78 mg/dl (70-99) 11/24/20 PT 9.8 Seconds (9.0-12.0) 12/20/20 PTT 26.2 Seconds (21.0-31.0) 12/20/20 INR 1.0 (0.9-1.1) 12/20/20 Blood Type O Positive 12/20/20 Antibody Screen NEGATIVE 12/20/20 Testing Electrocardiogram Date: 11/24/20 Normal sinus rhythm at 78bpm. Possible Left atrial enlargement. Compared to EKG from 10/06/19, T wave inversion now evident in Inferior leads. (Lead III only) Chest X-Ray Date: 12/20/20 FINDINGS: Questional focal density within the left upper lobe is likely due to the overlapping posterior rib. This is similar to the prior study. No pneumothorax or no pleural effusions. Mild diffuse interstitial thickening and mild cardiac megaly, unchanged. No new focal lung consolidations to suggest pneumonia. No evidence for pulmonary edema. Degenerative changes and chronic rotator cuff injury again noted with the glenohumeral joints. Severe compression deformity at the T10 vertebral body. No associated retropulsion. This is technically age indeterminate but likely chronic. There is a mild kyphotic deformity of the thoracic spine. IMPRESSION: 1. No acute process within the chest. 2. Mild cardiomegaly and chronic interstitial thickening, unchanged. 3. Severe compression deformity at T10. This is technically age indeterminate but likely chronic.
--- NOTE | 2021-01-05 07:01 | History & Physical Report ---
Date of Service January 05, 2021 Assessment & Plan (1) Rotator cuff arthropathy of left shoulder: We will proceed with a left reverse shoulder arthroplasty. Postoperatively she will be placed in a sling and kept overnight in the hospital for postoperative medical management. She plans to use [facility] upon discharge. History of Present Illness Chief Complaint: Rotator cuff arthropathy of the left shoulder. Primary Care Provider: Chaztylerptati Maharaj is a pleasant 75-year-old female whom I been treating for cuff arthropathy of her left shoulder. Unfortunately she recently felt a tear in her shoulder and her shoulders been much worse. She had to go to the emergency room. She was given some oral pain medications. She cannot live with the shoulder the way it is anymore. She lives alone. She ambulates with a walker. After extensive discussions in the office, she has elected proceed with a left reverse shoulder replacement.. Allergies Allergy/AdvReac Type Severity Reaction Status Date / Time adhesive tape Allergy Intermediate tears skin Verified 12/13/20 12:23 Home Medications Medication Instructions Recorded Confirmed Type Calcium 600 + D(3) 1 cap PO BID 09/26/19 12/13/20 History levothyroxine 88 mcg PO QAM 09/26/19 12/13/20 History multivitamin with minerals 1 tab PO QDL 09/26/19 12/13/20 History cyclobenzaprine 10 mg tablet 10 mg PO HS PRN 10/25/20 12/13/20 History ibandronate 150 mg tablet 150 mg PO MO 10/25/20 12/13/20 History acetaminophen 1,000 mg PO Q4 PRN 11/24/20 12/13/20 History aspirin 81 mg PO HS 11/24/20 12/13/20 History diclofenac sodium [Voltaren] 2 g TOPICAL QID PRN #150 g 11/24/20 12/13/20 Rx ibuprofen [Advil] 600 mg PO Q4H PRN 11/24/20 12/13/20 History amoxicillin 500 mg tablet 2,000 mg PO ONCE #4 tab 11/25/20 12/13/20 Rx oxycodone 5 mg tablet 5 mg PO Q6 PRN #30 tab 11/30/20 12/13/20 Rx Past Med/Surg History Medical History Degenerative disc disease HTN (hypertension) pt denies Hx of fracture T11 compression fracture --> no surgical intervention, treated with rehab & physical therapy Hx of Graves' disease radioactive iodine treatment Hypothyroidism Osteoarthritis Osteoporosis Right thigh pain Stroke (~2008) R eye, ~15yrs ago. folllows with Dr Degroot ([facility]) with injections into the right eye every 6 weeks. Surgical History H/O vein stripping bilateral H/O wisdom tooth extraction History of open reduction and internal fixation (ORIF) procedure Left femur History of total right hip arthroplasty Family History Mother No problems noted. Other No family history of adverse response to anesthesia Social History Smoking Status: Never smoker Second Hand Exposure: No; Hx Alcohol Use: No Hx Substance Use: No Preferred Language: Mauritanian Communication Ability: Effective Visual Impairment: No Limitations Helicopter Technician Required: No Beliefs That Will Affect Care: None Current Living Situation: Alone Feels Safe at Home: Yes Assistive Devices: Glasses and Walker Review of Systems All systems reviewed & are unremarkable except as noted in HPI & below. Physical Exam On physical examination of the left shoulder, she has about 20 degrees of forward elevation to 1 degrees of abduction. She is a lot of pain with passive range of motion. She has a pseudoparalysis.. Constitutional WD/WN, vitals as above Eyes PERRL, conjunctivae normal, anicteric sclerae ENMT external ear and nose normal, oropharynx normal Neck trachea midline, no thyromegaly Respiratory normal respiratory effort Cardiovascular RRR, no murmur, no edema Gastrointestinal (Abdomen) normal bowel sounds, soft, nontender, no hepatosplenomegaly Psychiatric A+Ox3, euthymic affect Results & Data Results & Data Laboratory Results . Diagnostic Findings X-rays of the left shoulder show moderate osteoarthritis but there is blunting of the humeral head and some acetabularization of the acromion.. PG Care Time/CCT Total # of Minutes Spent Total Time Spent with Patient: Total time spent is greater than 50% in coordination of care (as documented) at patient's floor/unit and/or counseling patient: Coding Level of Care Code None Diagnoses Rotator cuff arthropathy of left shoulder M12.812
[~2021-01-06 08:32] MED LIST changes: -ACET-1256 PO; +ACETAMINOPHEN 500 MG TAB PO SCH; -ASPI81TA28 PO; +BUPIVACAINE 0.5 % 5 MG/1 ML PF 10ML VIAL ONE; -CALC-20 PO; -DICL-201 PO; +FAMOTIDINE 20 MG TAB PO SCH; +GABAPENTIN 300 MG CAP PO SCH; -IBAN150T PO; -LEVO100T7 PO; +LR 15ML/HR IV SCH; +LR 60ML/HR IV SCH; -MULT-916 PO; +ROPIVACAINE 0.5% HCL/PF 150 MG, BUPIVACAINE 0.75% MPF 20 ML, EPINEPHrine 30MG/30ML (OR ... INFIL SCH; +TRANEXAMIC ACID 1,000 MG **IV Intra-op IV SCH; +TRANEXAMIC ACID 1,000 MG **IV Pre-op IV SCH; +ceFAZolin 2000MG 2,000 MG/15 ML SYR IV SCH; +dexAMETHasone 4 MG TAB PO SCH
[2021-01-06] MEDS ORDERED: fentaNYL citrate 100 MCG/2 ML VIAL ONE (09:23)
[2021-01-06] MEDS ORDERED: MIDAZOLAM HCL 1 MG/ML 2ML VIAL ONE (09:23)
[2021-01-06] MEDS ORDERED: ONDANSETRON INJ 2 MG/ML 2 ML VIAL ONE (09:23)
[2021-01-06] MEDS ORDERED: PROPOFOL IV EMULSION 10 MG/ML 20 ML VIAL IV ONE (09:23)
[2021-01-06] MEDS ORDERED: LIDOCAINE 2% 2 ML VIAL/AMP(20MG/ML) INFIL ONE (09:23)
[2021-01-06] MEDS ORDERED: DEXAMETHASONE SOD INJ 4 MG/ML VIAL ONE (09:23)
[2021-01-06] MEDS ORDERED: NEOSTIGMINE METHYLSULFATE 1 MG/ML 10ML VIAL ONE (09:47)
[2021-01-06] MEDS ORDERED: GLYCOPYRROLATE 0.2 MG/ML VIAL ONE (09:47)
[2021-01-06] MEDS ORDERED: ROCURONIUM BROMIDE 10 MG/ML 5 ML VIAL IV ONE (09:47)
--- NOTE | 2021-01-06 10:36 | History & Physical Bridge Note ---
Date of Service January 06, 2021 History & Physical Bridge Note I have examined the patient, reviewed the History & Physical and in the interval since the performance of the History & Physical I have noted the following changes of clinical significance: no changes noted
[2021-01-06] MEDS ORDERED: fentaNYL citrate 100 MCG/2 ML VIAL IV PRN (10:43)
[2021-01-06] MEDS ORDERED: ATROPINE SULFATE 0.1 MG/ML 10ML SYR IV PRN (10:43)
[2021-01-06] MEDS ORDERED: ONDANSETRON INJ 2 MG/ML 2 ML VIAL IV PRN ×2 (10:43→15:49)
[2021-01-06] MEDS ORDERED: ePHEDrine sulfate 50 MG/ML AMP IV PRN (10:43)
[2021-01-06] MEDS ORDERED: ORTHO JOINT ANESTHETIC ONE (11:11)
--- NOTE | 2021-01-06 12:53 | Operative Report ---
PG Post Operative Report Pre & Post Diagnosis Operation Date: 01/06/21 10:40 Pre-Op Diagnosis: Left shoulder rotator cuff arthropathy with tendinopathy of the long head of the biceps tendon Post-Op Diagnosis: Left shoulder rotator cuff arthropathy with tendinopathy of the long head of the biceps tendon I identified the patient and participated in the time-out.: Yes Procedure Operation Date: 01/06/21 10:40 Actual Procedures p Left Reverse Total Shoulder Arthroplasty, Uncemented(Left) with open biceps tenodesis as a distinct and separate procedure (modifier 59)- Jay Leblanc DO Surgeon Jay Leblanc DO Soldering Technician Jay Martinez PAC Estimated Blood Loss 200 Findings Consistent with Post-Op Diagnosis Specimens Left humeral head Complications none Disposition Disposition: Recovery Room Indications Carol Ann is a pleasant 75-year-old female whose been dealing with chronic worsening left shoulder pain. X-rays and clinical examination been diagnostic for cuff arthropathy of the left shoulder. After failing years of conservative treatment, she has elected proceed with a left reverse shoulder arthroplasty. Description of Procedure A CPT code modifier 59: The long head of the biceps tendon was enlarged and inflamed consistent with tendinopathy. A tenodesis was opted. This was a separate and distinct portion of the procedure. For these reasons, a CPT code modifier 59 will be added to this case. Implants used: I used a [employer] Comprehensive reverse total shoulder arthroplasty system with a size 6 press fit micro humeral stem, a +6 offset humeral tray and a standard humeral bearing, a 25 mm small augment baseplate with a 6.5 mm central screw and superior and inferior locking screws, and a size 36 mm eccentric glenosphere. Carol Ann arrived at [facility] for the above procedure. She was seen in the preoperative holding area and the operative extremity was identified and signed. She was given a preoperative antibiotic, TXA, and an interscalene nerve block. She was taken back to the operating room, laid on table in supine position, and put under general anesthesia. She was then put into the beachchair position. The shoulder was then prepped and draped in sterile fashion. A timeout was done and the patient and the operative extremity was properly identified. A deltopectoral approach was used. Dissection was taken down through the fascia and the deltoid was retracted laterally and the conjoined tendon was retracted medially. The anterior shoulder was exposed. The biceps groove was opened up and the biceps tendon was examined extensively. The biceps tendon demonstrated enlargement and inflammatory changes consistent with longstanding inflammation in the context of osteoarthritis and cuff arthropathy. The long head of the biceps tendon was then tenodesed to the upper border of the pectoralis major. This was a separate and distinct portion of the procedure. The subscapularis was then directly released off the lesser tuberosity with a peel technique. The inferior capsule was released and the humeral head was dislocated. A canal finding reamer was sent down the center of the humeral canal. Sequential reaming up to a size 6 reamer was done. Off that reamer, a proximal humeral resection guide was placed. The proximal humerus was resected at 135 of inclination and 25 of retroversion. Osteophytes were then removed and the glenoid was exposed. Time was spent doing a complete capsular and labral release. The glenoid guide was then placed in the inferior aspect of the glenoid. A 3.2 mm Steinmann pin was then placed into the glenoid vault at 10 of inclination. The glenoid baseplate was then reamed. The final size 25 mm small augment baseplate was then impacted in the place. A 6.5 mm central screw was then placed followed by superior and inferior locking screws. A 36 mm eccentric glenosphere was then impacted into place. Surrounding soft tissues were then injected with 100 cc an orthopedic pain control cocktail. The proximal humerus was then exposed. Sequential broaching of the humerus up to a size 6 broach was done. Off that broach a +6 offset humeral tray was trialed. The shoulder was then reduced, brought through a full range of motion, and felt to be stable. The shoulder was then dislocated and the broach was removed. The final size 6 micro press-fit humeral stem was then impacted into place. A standard humeral bearing was then snapped onto a +6 offset humeral tray. The humeral tray was then impacted onto the humeral stem. The shoulder was once again reduced, brought through a full range of motion, and felt to be stable. The subscapularis was of poor quality and basically unrepairable. A dilute betadyne lavage was then done for 3 minutes. The joint was then irrigated with normal saline solution. Hemostasis was obtained. The interval was closed with 2-0 Vicryl suture. The skin was then closed with 2-0 Vicryl and kori. A Silverlon dressing was placed and the arm was rested in a regular arm sling. She was then extubated and transferred to a hospital bed. She taken to the postanesthesia care unit in stable condition. She tolerated the procedure well. Jay Martinez PA-C, was present for the entire procedure. He was critical for patient positioning, prepping, draping, retraction exposure, wound closure and application of sterile dressing. I attest to the content of the Intraoperative Record and any orders documented therein. Any exceptions are noted below.
--- NOTE | 2021-01-06 13:45 | XRay Report ---
XR shoulder LT min 2V routine CLINICAL HISTORY: Post shoulder surgery COMPARISON STUDY: None. FINDINGS: Status post reverse left total shoulder arthroplasty. Hardware is intact. No fracture or di slocation. Skin kori are in place. Patchy densities at the left lung base favor subsegmental atele ctasis. IMPRESSION: Status post reverse left total shoulder arthroplasty. No evidence for hardware complicat ion. ACT 112: Negative or not required by law. Electronically signed by: Devon Sun M.D. 01/06/2021 1:44 PM
--- NOTE | 2021-01-06 14:23 | Anesthesiology Progress Note ---
Date of Service January 06, 2021 Anesthesia Post Procedure Vital Signs Vital Signs: Temp Pulse Pulse Resp BP Pulse Ox 01/06/21 14:15 82 12 135/65 99 01/06/21 14:00 79 16 133/62 100 01/06/21 13:50 84 20 139/70 99 01/06/21 13:40 86 18 133/70 99 01/06/21 13:30 87 18 131/66 98 01/06/21 13:20 90 18 136/66 98 01/06/21 13:10 36.0 C L 102 H 20 136/71 98 01/06/21 09:15 36.8 C 92 H 20 153/83 H 96 Pain Intensity Left Shoulder: Pain Intensity: 0 Right Leg: Pain Intensity: 0 Transfer of Care Handoff Completed per policy Notes Mental Status: alert / awake / arousable and participated in evaluation Patient Amnestic to Procedure: Yes Nausea / Vomiting: adequately controlled Pain: adequately controlled Airway Patency, RR, SpO2: stable & adequate BP & HR: stable & adequate Hydration State: stable & adequate Anesthetic Complications: no major complications apparent and Pt Satisfied with anesthetic care
[2021-01-06] MEDS ORDERED: METOCLOPRAMIDE HCL INJ 5 MG/ML 2 ML VIAL IV PRN (15:49)
[2021-01-06] MEDS ORDERED: bisacodyL 10 MG SUPP PR PRN (15:49)
[2021-01-06] MEDS ORDERED: NALOXONE HCL 0.4 MG/1 ML VIAL/CARP IV PRN (15:49)
[2021-01-06] MEDS ORDERED: MAGNESIUM HYDROXIDE SUSP 30 ML UDC PO PRN (15:49)
[2021-01-06] MEDS ORDERED: HYDROmorphone INJ 0.5 MG/0.5 ML SYR IV PRN (15:49)
[2021-01-06] MEDS: ACETAMINOPHEN 500 MG TAB PO SCH ×2 (17:57→23:12)
[2021-01-06] MEDS: SODIUM CHLORIDE 0.9% 1000ML 1,000 ML IV SCH (18:02)
[2021-01-06] MEDS: KETOROLAC TROMETHAMINE 15 MG/ML VIAL IV SCH ×2 (18:02→23:12)
[2021-01-06] MEDS: ceFAZolin 2000MG 2,000 MG/15 ML SYR IV SCH (20:36)
[2021-01-06] MEDS: SENNA 8.6 MG TAB PO SCH (20:37)
[2021-01-06] MEDS: ASPIRIN 81 MG ECTAB PO SCH (20:38)
[2021-01-06] MEDS: DOCUSATE SODIUM 100 MG CAP PO SCH (20:38)
[2021-01-07] MEDS: SODIUM CHLORIDE 0.9% 1000ML 1,000 ML IV SCH (04:02)
[2021-01-07] MEDS: ceFAZolin 2000MG 2,000 MG/15 ML SYR IV SCH (04:57)
[2021-01-07] MEDS: KETOROLAC TROMETHAMINE 15 MG/ML VIAL IV SCH ×5 (05:03→22:09)
[2021-01-07] MEDS: LEVOTHYROXINE SODIUM 88 MCG TABLET PO SCH (05:30)
[2021-01-07 06:24] LABS: Hematocrit (blood only) 30.7 % (37-47); Hemoglobin 9.8 g/dL (12.0-16.0); Immature Granulocytes # (auto) 0.02 K/uL (0.00-0.02); Immature Granulocytes % (auto) 0.2 %; Lymphocytes # (auto) 0.61 K/uL (1.2-3.4); Lymphocytes % (auto) 4.7 %; Mean Corpuscular Hemoglobin 30.7 pg (25-34); Mean Corpuscular Hgb Conc 31.9 g/dL (32-36); Mean Corpuscular Volume 96.2 fL (80-100); Mean Platelet Volume 10.5 fL (7.4-10.4); Monocytes # (auto) 1.59 K/uL (0.11-0.59); Monocytes % (auto) 12.2 %; Neutrophils # (auto) 10.86 K/uL (1.4-6.5); Neutrophils % (auto) 82.9 %; Platelet Count 277 K/uL (130-400); RDW Coefficient of Variation 15.3 % (11.5-14.5); RDW Standard Deviation 53.8 fL (36.4-46.3); Red Blood Count 3.19 M/uL (4.2-5.4); White Blood Count 13.08 K/uL (4.8-10.8)
[2021-01-07 06:59] LABS: BUN Creatinine Ratio 35.4 (10-20); Calcium 7.9 mg/dl (8.5-10.1); Creatinine Clr Calc Pharmacy 90.7 ml/min; Est GFR (African American) 108.9 ml/min; Potassium 4.2 mmol/L (3.5-5.1)
--- NOTE | 2021-01-07 07:35 | Orthopedic Progress Note ---
Date of Service January 07, 2021 Assessment & Plan (1) Status post reverse total replacement of left shoulder: Overall she is doing fairly well. I spoke with the nurses about completely changing her dressing today. She will be seen by physical therapy today for ambulation and range of motion exercises. They will adjust her sling. She can be discharged home later today. She will follow-up with orthopedics in 2 weeks. Issac Maharaj was seen and examined at bedside this morning. Overall she is doing fairly well. She is now having much pain in the left shoulder. She had some issues with bleeding through the dressing overnight. The dressing was reinforced. She has no other complaints.. Review of Systems All systems reviewed & are unremarkable except as noted in HPI & below. Physical Exam On physical examination of the left shoulder, the dressing is saturated. It will need to be changed today. She has very little function of her arm secondary to the nerve block. She is wearing her sling as instructed.. Results & Data Results & Data Laboratory Results . Diagnostic Findings Postoperative x-rays of the left shoulder show the prosthesis to be in anatomic alignment without any evidence of fracture, dislocation, or loosening.. PG Care Time/CCT Total # of Minutes Spent Total Time Spent with Patient: Total time spent is greater than 50% in coordination of care (as documented) at patient's floor/unit and/or counseling patient: Coding Level of Care Code 38384 Post Operative Follow-Up Diagnoses Status post reverse total replacement of left shoulder Z96.612
--- NOTE | 2021-01-07 07:36 | Discharge Summary ---
Date of Service January 07, 2021 Admission HPI (Per Admitting) Carol Ann is a pleasant 75-year-old female whom I been treating for cuff arthropathy of her left shoulder. Unfortunately she recently felt a tear in her shoulder and her shoulders been much worse. She had to go to the emergency room. She was given some oral pain medications. She cannot live with the shoulder the way it is anymore. She lives alone. She ambulates with a walker. After extensive discussions in the office, she has elected proceed with a left reverse shoulder replacement.. Admission Exam (Per Admitting) On physical examination of the left shoulder, she has about [address] elevation to 1 degrees of abduction. She is a lot of pain with passive range of motion. She has a pseudoparalysis.. Principal Diagnosis Same as "Discharge Diagnosis" noted below under Discharge Instructions. Discharge Exam On physical examination of the left shoulder, the dressing is saturated. It will need to be changed today. She has very little function of her arm secondary to the nerve block. She is wearing her sling as instructed.. Discharge Data Procedures Performed Operation Date: 01/06/21 10:40 Actual Procedures p Left Reverse Total Shoulder Arthroplasty, Uncemented(Left) - Jay Leblanc DO Ordered Studies 01/06/21 05:00 US - OR guided needle placemen Routine Hospital Course (1) Status post reverse total replacement of left shoulder: On January 06, 2021 Carol Ann arrived at [facility] and underwent a left reverse shoulder replacement without complication. She had a general anesthetic and a left interscalene nerve block. Postoperatively she was placed in a sling and transferred to the general orthopedic floors. Her hospital course was uneventful. On postop day #1 her vital signs were stable and her pain was well controlled. She did have some bleeding through the dressing and the dressing was changed. She was seen by physical therapy and able to do ambulation and range of motion exercises. She was then discharged home. She will follow-up with orthopedics in 2 weeks. PG Care Time/CCT Total # of Minutes Spent Total Time Spent with Patient: Total time spent is greater than 50% in coordination of care (as documented) at patient's floor/unit and/or counseling patient: Discharge Plan Discharge Items Patient Disposition: Home - Home Health Services Reason For Visit: Left Shoulder Degenerative Joint Disease Discharge Diagnosis: Left reverse shoulder replacement Activity: As commented below Non-emergency contact: Surgeon Call non-emergency contact if: your wound has increased redness and your wound has increased drainage Follow-up/Referrals: Radha Lara [Primary Care Provider] - Diet: Regular Addtl Attending Provider Instructions: Activity and Therapy Recommendations: * If you are using [facility] then therapy will be provided at your home until they feel you have accomplished all of your goals. * If you are using [facility] then Physical Therapy will be provided until they feel you are ready to start Outpatient Physical Therapy. * If you are not using home therapy then Outpatient Physical Therapy should start about 3-5 days from your day of surgery. Therapy will last about 8-12 weeks * Wear your sling for 3 weeks, unless otherwise instructed. You may remove your sling to shower and to dress, but otherwise, you should be in your sling at all times, including while sleeping * The shoulder replacement is very stable and you can use your hand while in the sling * You were shown a series of exercises in the hospital. Do these exercises daily including the exercises you were shown in physical therapy. Medications: * Narcotic You will likely be sent home from the hospital with a prescription for the narcotic pain medication that worked best throughout your stay. * Other medications may be prescribed for specific circumstances. If you have any questions, please call the office at . * Resume previous home medications unless otherwise instructed Dressing Care: Daily dry dressing changes until it has stopped draining. If the incision is not draining then you may leave the kori open to air. If there is a little bit of drainage or if the kori are getting stuck on your clothing then cover the incision with a dry dressing. The kori will be removed at your 2 week follow-up appointment. Showering: You may shower 5 days after the day of surgery if the incision has stopped draining. If it is still draining some, then please do not shower. You may shower with the kori exposed once it has stopped draining. Let soapy water run over the kori and pat them dry. Do not scrub or soak the incision. Things To Watch For: * Drainage from the incision site that occurs more than one week after your surgery. * Increased redness at the incision site. * Fever above 102 degrees Fahrenheit. * Unusual chest pain or shortness of breath. * Call [facility] at with any of the above problems Follow-Up Visit: Follow-up with Dr. Leblanc's PA (Jay Martinez) 2-3 weeks after your day of surgery. He will remove your kori and answer any questions. If you have any additional questions or concerns, Dr Leblanc is usually in the office at the same time and will be available An appointment was probably scheduled when you signed-up for surgery in the office. If you have any questions call More detailed instructions as well as Frequently Asked Questions were provided in a folder by our office when you signed-up for surgery. Please review these instructions when you get home. If you have any further questions or concerns, please feel free to call the office at [phone] Pending Studies at Discharge: No Stand-Alone Forms: My [facility], Smoking Cessation Medications and DC Order Prescriptions: Continued amoxicillin 500 mg tablet 2,000 mg PO ONCE Qty: 4 RF: 3 ibandronate [Boniva] 150 mg tablet 150 mg PO MO RF: 0 levothyroxine 88 mcg tablet 88 mcg PO QAM RF: 0 multivitamin with minerals Tablet 1 tab PO QDL RF: 0 Calcium 600 + D(3) 600 mg calcium- 200 unit Capsule 1 cap PO BID RF: 0 oxycodone 5 mg tablet 5 mg PO Q6 PRN (Reason: pain) Qty: 30 RF: 0 aspirin 81 mg tablet,delayed release (DR/EC) 81 mg PO HS RF: 0 acetaminophen 500 mg tablet 1,000 mg PO Q4 PRN (Reason: Pain) RF: 0 ibuprofen [Advil] 200 mg Tablet 600 mg PO Q4H PRN (Reason: Pain) RF: 0 diclofenac sodium [Voltaren] 1 % gel 2 g topical QID PRN (Reason: pain) Qty: 150 RF: 0 Discharge Orders: Discharge Order (Routine); Ordered 01/07/21 Ordered By: Jay Leblanc Admission Data Admit Date/Time: 01/06/21 13:11 Attending Provider: Jay Leblanc Admit Provider: Jay Leblanc Primary Care Provider: Radha Lara
[2021-01-07] MEDS ORDERED: dexAMETHasone 4 MG TAB PO SCH (08:00)
[2021-01-07] MEDS: ACETAMINOPHEN 500 MG TAB PO SCH ×3 (09:24→23:45)
[2021-01-07] MEDS: DOCUSATE SODIUM 100 MG CAP PO SCH ×2 (09:25→20:39)
[2021-01-07] MEDS: MULTIVITAMIN TAB PO SCH (09:25)
[2021-01-07] MEDS: ASPIRIN 81 MG ECTAB PO SCH (20:38)
[2021-01-07] MEDS: SENNA 8.6 MG TAB PO SCH (20:38)
[2021-01-08] MEDS: LEVOTHYROXINE SODIUM 88 MCG TABLET PO SCH (04:57)
[2021-01-08] MEDS: oxyCODONE HCL IR 5 MG TAB (IMMEDIATE RELEASE) PO PRN ×2 (04:57→10:03)
[2021-01-08] MEDS: KETOROLAC TROMETHAMINE 15 MG/ML VIAL IV SCH ×2 (04:58→11:27)
--- NOTE | 2021-01-08 07:19 | Orthopedic Progress Note ---
Date of Service January 08, 2021 Assessment & Plan (1) Status post reverse total replacement of left shoulder: Overall she is doing fairly well. She is not having much pain in the shoulder. She feels much better today. Her H&H was a little bit low but acceptable. She will be seen by physical therapy today for ambulation and range of motion exercises. She can be discharged home later today. She will follow- up with orthopedics in 2 weeks. Subjective Carol Ann was seen and examined at bedside this morning. Overall she is feeling much better. She has more energy today. She is not having any pain in the left shoulder. She has no complaints.. Review of Systems All systems reviewed & are unremarkable except as noted in HPI & below. Physical Exam On physical examination of the left shoulder, the dressing is clean and dry. It was changed once yesterday but has not bled through since. Her radial, median, and ulnar nerves are checked intact at her wrist. Her axillary nerve was not checked yet. She is wearing her sling as instructed.. Results & Data Results & Data Laboratory Results . Diagnostic Findings . PG Care Time/CCT Total # of Minutes Spent Total Time Spent with Patient: Total time spent is greater than 50% in coordination of care (as documented) at patient's floor/unit and/or counseling patient: Coding Level of Care Code 72926 Post Operative Follow-Up Diagnoses Status post reverse total replacement of left shoulder Z96.612
[2021-01-08] MEDS: ACETAMINOPHEN 500 MG TAB PO SCH (10:04)
[2021-01-08] MEDS: MULTIVITAMIN TAB PO SCH (10:04)
[2021-01-08] MEDS: DOCUSATE SODIUM 100 MG CAP PO SCH (10:04)
== END 2021-01-08 12:20 | disposition home or self-care (01) | DRG 483 ==
LOC: ASU 08:32 → 3W 13:11

== ENCOUNTER 2025-03-17 16:01 | Inpatient (IN) ==
--- NOTE | 2025-03-17 16:21 | Emergency Department Note ---
Impression & Plan Acute blood loss anemia, Volume overload, Hypomagnesemia, Thrombocytopenia ED Provider Note NAME: STEWART MACEDO AGE: 80 SEX: F : 1945 ARRIVES VIA: Ambulance INFORMANT: Patient, ED PROVIDER(S): Chris Darby MD CHIEF COMPLAINT: Shortness of breath MEDICAL DECISION MAKING: Patient presents due to concern for shortness of breath. IV was established and blood work was obtained. Patient's blood work shows a normal white count but significant anemia hemoglobin of 5.1. The patient denies any prior history of endoscopy or colonoscopy but the patient has been using NSAIDs for many years likely cause of symptoms and the patient has endorsed some dark stools. Patient vital signs stable at bedside. Patient was consented for blood and ordered blood. Platelet count of 52. Patient ordered PPI bolus and drip. Kidney function is unremarkable with potassium of 2.8 magnesium of 1.6. Calcium of 8.3. The patient was ordered 1 g of magnesium sulfate as well as potassium p.o. 40 mEq as well as 2 KCl riders. Patient was also ordered 1 g of calcium gluconate. I did speak the on-call hospitalist Dr. Fisher and the patient was admitted to the medicine service. Critical Care: I have personally spent 39 minutes of critical care time in direct management of this patient. This includes bedside care, interpretation of diagnostic studies, and testing, discussion with consultants, patient, and family members, and other require inpatient management activities. This 39 minutes is in excess of all separately billable procedures. Discussion w/ other healthcare providers: Dr. Fisher inpatient medicine service Prior /Outside records reviewed: None Differential diagnosis: Reactive airway disease, pneumonia, pneumothorax, COPD, CHF, ACS, pulmonary embolism, musculoskeletal, GERD as well as other pathologies were considered. Diagnostics, as interpreted by me: ECG: Normal sinus rhythm, rate of 81, wide QRS right bundle branch block pattern no obvious STEMI. Cardiac monitoring: An order was placed for continuous cardiac monitoring. The monitor shows a rate of 85 with sinus rhythm. Patient was placed on pulse oximetry Medical decision rules: None Imaging studies: I informally interpreted the patient's chest x-ray with pulmonary edema and pleural effusion with formal report to follow. HPI: Patient presents due to concern for shortness of breath. The patient said worsening shortness of breath over the last week. The patient is also noticed some lower extremity swelling. EMS reported the patient was significantly dyspneic just walking 2-3 steps to the ambulance stretcher. Patient was not hypoxic and route. Patient states that she has had a wet sounding cough but it is nonproductive. Patient denies any smoking history. She does admit to using ibuprofen up to 600 mg every 6 hours a day per years. Patient does state that she may have had some dark stools but no bloody stools. PAST MEDICAL HISTORY: See Below PAST SURGICAL HISTORY: See Below SOCIAL HISTORY: See Below HOME MEDICATIONS: See Below ALLERGIES: See Below VITALS: See Below PHYSICAL EXAMINATION: GENERAL: NAD, non-toxic. Wearing glasses. EYE EXAM: Normal conjunctiva. PERRL, no anisocoria and EOM's grossly intact w/o pain. OROPHARYNX: Moist mucus membranes, grossly normal dentition. NECK: Trachea midline, no stridor. LUNGS: Diminished breath sounds throughout. Normal chest wall mechanics. HEART: NSR, systolic ejection murmur noted. ABDOMEN: Abdomen soft, non-tender, no masses, no rebound or guarding. BACK: No CVA TTP. SKIN: No rashes and no bruising. UPPER EXTREMITIES: Upper extremities are grossly normal. LOWER EXTREMITIES: Grossly normal, 3+ pitting edema in the bilateral lower extremities without asymmetry or redness. NEURO EXAM: Awake and alert, follows commands, no obvious facial asymmetry, normal speech, moves all 4 extremities. Past Med/Surg History Problem List (Updated 03/18/25 @ 13:50 by Chirs Darby MD) Thrombocytopenia (Acute) Morbid obesity with BMI of 40.0-44.9, adult Hyperglycemia Hypomagnesemia (Acute) Volume overload (Acute) Heme positive stool Iron deficiency anemia Acute blood loss anemia (Acute) Medical History HTN (hypertension) pt denies Hypothyroidism Stress fracture, right femur, initial encounter for fracture Fracture of femur left Osteoporosis Lumbar radiculopathy Lumbar spondylosis Spinal stenosis of lumbar region Vertebral compression fracture Severe T10, L4 Thoracic back pain Diffuse myofascial pain syndrome Stroke (~2008) R eye, ~15yrs ago. folllows with Dr Degroot ([facility]) with injections into the right eye every 6 weeks. Hx of fracture T11 compression fracture --> no surgical intervention, treated with rehab & physical therapy Degenerative disc disease Osteoarthritis Hx of Graves' disease radioactive iodine treatment Surgical History Status post reverse total replacement of left shoulder (~01/2021) H/O wisdom tooth extraction H/O vein stripping bilateral History of open reduction and internal fixation (ORIF) procedure Left femur History of total right hip arthroplasty Family History Mother Leukemia Father Adopted due to patient being adopted -- father's medical history unknown Other No family history of adverse response to anesthesia Social History Smoking Status: Never smoker Second Hand Exposure: No; Do You Dip or Chew Tobacco: No; Hx Alcohol Use: No Hx Substance Use: No Preferred Language: Luxembourgish Communication Ability: Effective Visual Impairment: No Limitations Press Feeder Broomcorn Required: No Beliefs That Will Affect Care: None marital status: / Current Living Situation: Alone current occupational status: retired 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 How many Children do You have: 5 Other Information That Helps Us Care for You: No Feels Safe at Home: Yes Safety Concerns: Feels Safe At This Time Assistive Devices: Glasses and Walker Allergies Allergies Allergy/AdvReac Type Severity Reaction Status Date / Time adhesive tape Allergy Intermediate tears skin Verified 03/17/25 18:36 Home Meds Home Medications Medication Instructions Recorded Confirmed calcium 600 mg (as 1 cap PO BID 09/26/19 03/17/25 carbonate)-vitamin D3 5 mcg (200 unit) capsule (Calcium 600 + D(3)) levothyroxine 88 mcg tablet 88 mcg PO DAILYBB 09/26/19 03/17/25 multivitamin with minerals 1 tab PO QDL 09/26/19 03/17/25 acetaminophen 500 mg tablet 1,000 mg PO Q6 PRN Pain 11/24/20 03/17/25 aspirin 81 mg tablet,delayed 81 mg PO HS 11/24/20 03/17/25 release diclofenac sodium 1 % topical gel 2 g topical QID PRN Pain 07/04/21 03/17/25 faricimab-svoa 6 mg/0.05 mL 6 mg intravitreal UD 03/17/25 03/17/25 intravitreal syringe (Vabysmo) ibandronate 150 mg tablet 150 mg PO MO 03/17/25 03/17/25 ibuprofen 200 mg tablet (Advil) 800 mg PO Q6 PRN Pain 03/17/25 03/17/25 lisinopril 2.5 mg tablet 2.5 mg PO DAILY 03/17/25 03/17/25 Previous Rx's Medication Instructions Recorded amoxicillin 500 mg tablet 2,000 mg (4 x 500 mg) PO ONCE #4 11/25/20 tabs Results & Data (ED) Vital Signs Vital Signs - 24 hr 03/17/25 16:15 03/17/25 16:32 03/17/25 16:36 Temperature 36.3 C L Temperature Source Oral Pulse Rate 81 79 79 Pulse Rate from SpO2 Sensor 77 Respiratory Rate 18 16 Respiratory Effort / Characteristics Non-Labored Spontaneous Respiratory Depth Normal Blood Pressure 169/84 H 162/72 H Blood Pressure Mean 112 102 Pulse Oximetry 96 97 Oxygen Delivery Method Room Air Sepsis Recent Fever Within 48 Hours No Sepsis New/Unexplained Change in Mental Status N/A Sepsis Action Taken by Nursing No Action Required 03/17/25 17:06 03/17/25 18:30 03/17/25 18:31 Temperature Temperature Source Pulse Rate 80 Pulse Rate from SpO2 Sensor Respiratory Rate 16 Respiratory Effort / Characteristics Spontaneous Short of Breath Respiratory Depth Blood Pressure 190/97 H Blood Pressure Mean 142 Pulse Oximetry 95 97 Oxygen Delivery Method Room Air Room Air Sepsis Recent Fever Within 48 Hours Sepsis New/Unexplained Change in Mental Status Sepsis Action Taken by Nursing 03/17/25 19:06 Temperature Temperature Source Pulse Rate 95 H Pulse Rate from SpO2 Sensor 95 H Respiratory Rate 22 Respiratory Effort / Characteristics Respiratory Depth Blood Pressure 190/97 H Blood Pressure Mean 128 Pulse Oximetry 95 Oxygen Delivery Method Room Air Sepsis Recent Fever Within 48 Hours Sepsis New/Unexplained Change in Mental Status Sepsis Action Taken by Correction Medications Current Medication List: was personally reviewed by me Laboratory Data Attestation: I reviewed the patient's lab results. 03/18/25 06:51 03/18/25 06:51 Lab Results 03/17/25 03/17/25 03/17/25 Range/Units 16:23 16:24 17:15 WBC 5.62 (4.8-10.8) K/ul RBC 2.61 L (4.20-5.40) M/uL Hgb 5.1 L* (12.0-16.0) g/dl POC Hgb 5.8 L* (12.0-16.0) g/dl Hct 19.1 L* (37.0-47.0) % POC Hct 17 L* (37-47) % MCV 73.2 L (80.0-100.0) fL MCH 19.5 L (25.0-34.0) pg MCHC 26.7 L (32.0-36.0) g/dL RDW Std Deviation 66.7 H (36.4-46.3) fL RDW Coeff of Malia 26.7 H (11.5-14.5) % Plt Count 52 L (130-400) K/uL Immature Gran % (Auto) 1.1 % Neut % (Auto) 64.7 % Lymph % (Auto) 18.9 % Candler % (Auto) 9.6 % Eos % (Auto) 4.6 % Baso % (Auto) 1.1 % Neut # (Auto) 3.64 (1.40-6.50) K/uL Lymph # (Auto) 1.06 L (1.20-3.40) K/uL Candler # (Auto) 0.54 (0.11-0.59) K/uL Eos # (Auto) 0.26 (0.00-0.50) K/uL Baso # (Auto) 0.06 (0.00-0.20) K/uL Immature Gran # (Auto) 0.06 (0.01-0.20) K/uL Platelet Estimate Decreased L (Normal) Hypochromasia Present Anisocytosis Present Microcytosis Present PT 10.9 (9.0-12.0) Seconds INR 1.0 (0.9-1.1) APTT 25 (21-31) Seconds PTT Ratio 0.9 POC Sodium 140 (135-144) mmol/L Sodium 139 (136-145) mmol/L POC Potassium 2.7 L (3.3-5.0) mmol/L Potassium 2.8 L (3.5-5.1) mmol/L POC Chloride 102 (101-112) mmol/L Chloride 106 (98-107) mmol/L Carbon Dioxide 26 (21-32) mmol/L POC Total CO2 23 L (24-31) mmol/L Anion Gap 7 (3-11) POC Anion Gap 18.0 (16-25) mmol/L POC BUN 11 (7-18) mg/dl BUN 13 (6-23) mg/dl Creatinine 0.42 L (0.6-1.2) mg/dl POC Creatinine 0.6 (0.6-1.3) mg/dl Est Cr Clr Drug Dosing 97.3 ml/min eGFR 97.60 BUN/Creatinine Ratio 31.0 H (10-20) Glucose 163 H (70-99(Fasting)) mg/dl POC Glucose (other) 154 H (70-99) mg/dl Calcium 8.3 L (8.6-10.3) mg/dl POC Ioniz Calcium Rekha 1.16 (1.12-1.32) mmol/l Magnesium 1.6 L (1.7-2.4) mg/dl Iron 24 L (35-150) mcg/dl TIBC 574 H (250-450) mcg/dl Transferrin 410 H (200-360) mg/dl Transferrin % Sat 4 L (15-50) % Ferritin 12.3 (8-388) ng/ml Total Bilirubin 0.3 (0.2-1.0) mg/dl AST 26 (13-39) U/L ALT 28 (7-52) U/L Alkaline Phosphatase 65 (34-104) U/L Troponin I High Sens 15.2 H (0-14) pg/ml B-Natriuretic Peptide 298 H (0-100) pg/ml Total Protein 5.9 L (6.0-8.3) gm/dl Albumin 3.3 L (3.4-5.0) gm/dl Globulin 2.6 (2.5-4.0) gm/dl Albumin/Globulin Ratio 1.3 (0.9-2) Vitamin B12 1232 H (180-914) pg/ml Folate > 22.30 (>5.38) ng/ml Blood Type O Positive Antibody Screen NEGATIVE Crossmatch See Detail Administered Medications Acetaminophen (Acetaminophen 500 Mg Tab) 1,000 mg PO Q6 PRN PRN Reason: Pain Stop: 04/16/25 22:36 Last Admin: 03/18/25 08:06 Dose: 1,000 mg Documented By: Admin: 03/18/25 02:09 Dose: 1,000 mg Documented By: TIAN Pantoprazole Sodium 40 mg/ (Dextrose) 100 mls @ 20 mls/hr IV Q5H CHAN Stop: 04/16/25 17:29 Last Admin: 03/18/25 08:52 Dose: 8 mg/hr, 20 mls/hr Documented By: Infusion: 03/18/25 08:52 Dose: Infused Documented By: Admin: 03/18/25 03:59 Dose: 8 mg/hr, 20 mls/hr Documented By: Infusion: 03/18/25 03:59 Dose: Infused Documented By: Admin: 03/17/25 23:05 Dose: 8 mg/hr, 20 mls/hr Documented By: Infusion: 03/17/25 23:05 Dose: Infused Documented By: Admin: 03/17/25 19:20 Dose: 8 mg/hr, 20 mls/hr Documented By: JACOBO Levothyroxine Sodium (Levothyroxine Sodium 88 Mcg Tablet) 88 mcg PO DAILYBB [facility] Stop: 04/17/25 06:29 Last Admin: 03/18/25 06:02 Dose: 88 mcg Documented By: TIAN Multi-Ingredient Mouthwash/Gargle (First - Mouthwash Blm 5 Ml Udp) 5 ml PO QID CHAN Stop: 04/16/25 22:36 Last Admin: 03/18/25 09:57 Dose: Not Given Documented By: Admin: 03/17/25 23:07 Dose: 5 ml Documented By: TIAN Discontinued Medications Acetaminophen (Acetaminophen 500 Mg Tab) 1,000 mg PO NOW STA Stop: 03/17/25 19:11 Last Admin: 03/17/25 20:30 Dose: 1,000 mg Documented By: CHELA Furosemide (Furosemide 40 Mg/4 Ml Vial) 20 mg IV ONE ONE Stop: 03/17/25 19:11 Last Admin: 03/17/25 23:07 Dose: 20 mg Documented By: TIAN Furosemide (Furosemide Inj 20 Mg/2 Ml Vial) Confirm Administered Dose 20 mg IV .STK-MED ONE Stop: 03/17/25 23:01 Last Admin: 03/18/25 00:33 Dose: 20 mg Documented By: TIAN Furosemide (Furosemide Inj 20 Mg/2 Ml Vial) Confirm Administered Dose 20 mg IV .STK-MED ONE Stop: 03/18/25 00:24 Last Admin: 03/18/25 02:12 Dose: 20 mg Documented By: TIAN Furosemide (Furosemide Inj 20 Mg/2 Ml Vial) Confirm Administered Dose 20 mg IV .STK-[facility] ONE Stop: 03/18/25 02:12 Last Admin: 03/18/25 02:36 Dose: Not Given Documented By: TIAN Pantoprazole Sodium 80 mg/ (Dextrose) 120 mls @ 480 mls/hr IV NOW ONE Stop: 03/17/25 17:21 Last Infusion: 03/17/25 19:15 Dose: Infused Documented By: Admin: 03/17/25 18:28 Dose: 480 mls/hr Documented By: GISEL Magnesium Sulfate/Dextrose (Magnesium Sulfate / D5w) 1 gm in 100 mls @ 100 mls/hr IV NOW STA Stop: 03/17/25 18:27 Last Infusion: 03/17/25 20:35 Dose: Infused Documented By: Admin: 03/17/25 19:21 Dose: 100 mls/hr Documented By: JACOBO Potassium Chloride (K Rickie / Wtr) 10 meq in 100 mls @ 100 mls/hr IV Q1H CHAN Stop: 03/17/25 19:29 Last Infusion: 03/17/25 21:41 Dose: Infused Documented By: Admin: 03/17/25 20:30 Dose: 100 mls/hr Documented By: Infusion: 03/17/25 20:30 Dose: Infused Documented By: Admin: 03/17/25 19:30 Dose: 100 mls/hr Documented By: JACOBO Calcium Gluconate () 1,000 mg in 60 mls @ 240 mls/hr IV NOW STA Stop: 03/17/25 17:44 Last Infusion: 03/17/25 19:15 Dose: Infused Documented By: Admin: 03/17/25 18:53 Dose: 240 mls/hr Documented By: GISEL Magnesium Sulfate/Dextrose (Magnesium Sulfate / D5w) 1 gm in 100 mls @ 50 mls/hr IV Q2H CHAN Stop: 03/18/25 06:44 Last Infusion: 03/18/25 10:20 Dose: Infused Documented By: Admin: 03/18/25 04:55 Dose: 50 mls/hr Documented By: Infusion: 03/18/25 04:55 Dose: Infused Documented By: Admin: 03/18/25 03:04 Dose: 50 mls/hr Documented By: TIAN Potassium Chloride (K Rickie / Wtr) 10 meq in 100 mls @ 100 mls/hr IV Q1H CHAN Stop: 03/18/25 06:44 Last Infusion: 03/18/25 10:21 Dose: Infused Documented By: Admin: 03/18/25 06:03 Dose: 100 mls/hr Documented By: Infusion: 03/18/25 05:56 Dose: Infused Documented By: Admin: 03/18/25 04:56 Dose: 100 mls/hr Documented By: Infusion: 03/18/25 04:56 Dose: Infused Documented By: Admin: 03/18/25 03:59 Dose: 100 mls/hr Documented By: Infusion: 03/18/25 03:59 Dose: Infused Documented By: Admin: 03/18/25 03:04 Dose: 100 mls/hr Documented By: TIAN Pantoprazole Sodium (Pantoprazole Bolus/Drip) 1 each IV NOW STA Stop: 03/17/25 17:08 Last Admin: 03/17/25 18:31 Dose: Not Given Documented By: GISEL Perflutren Lipid Microsphere (Perflutren Lipid Microsphere (Definity)) 2 ml IV ONCE ONE Stop: 03/18/25 09:28 Last Admin: 03/18/25 09:27 Dose: 2 ml Documented By: COLTEN Potassium Chloride (Potassium Chloride Crtab 20 Meq Tabcr) 40 meq PO NOW STA Stop: 03/17/25 17:29 Last Admin: 03/17/25 18:53 Dose: 40 meq Documented By: GISEL Imaging Data Radiologist's Impression: Chest X-Ray 03/17/25 16:10 Clinical History: Dyspnea Technique: A frontal view of the chest was obtained Comparison is made to the prior examination dated 12/20/2020 Findings: There is mild patchy opacity in the right lung base. The heart size is at the upper limit of normal. No pleural effusion or pneumothorax is seen. There is diffuse interstitial prominence, concerning for mild pulmonary edema There is a left shoulder arthroplasty Impression: 1. Mild pulmonary edema 2. Possible right lower lobe pneumonia ACT 112: Positive. There are findings on this exam that require communication between the performing entity and the patient following Patient Test Result Information Act ([place] ACT 112) guidelines. Electronically signed by Danny Lobato 03-17-2025 5:32 PM Discharge Plan Visit Data Chief Complaint: Shortness of Breath/Dyspnea Stated Complaint: SOB, PEDAL EDEMA ED Provider: Chris Darby Discharge Problem: Acute blood loss anemia, Volume overload, Hypomagnesemia, Thrombocytopenia Patient Disposition: Admitted As Inpatient Condition: Good Discharge Instructions Interventions: ED Discharge Assessment Last Done: 03/17/25 22:00 Discharge Problem: Volume overload Qualifiers: Hypervolemia type: unspecified Qualified Code(s): E87.70 - Fluid overload, unspecified
[2025-03-17] MEDS ORDERED: SODIUM CHLORIDE 0.9% 100 ML IV PRN (17:07)
[2025-03-17 17:08] LABS: Hematocrit (blood only) 19.1 % (37.0-47.0); Hemoglobin 5.1 g/dl (12.0-16.0); Mean Corpuscular Hemoglobin 19.5 pg (25.0-34.0); Mean Corpuscular Volume 73.2 fL (80.0-100.0); Platelet Count 52 K/uL (130-400); RDW Standard Deviation 66.7 fL (36.4-46.3); Red Blood Count 2.61 M/uL (4.20-5.40); White Blood Count 5.62 K/ul (4.8-10.8)
[2025-03-17 17:09] LABS: Anisocytosis Present; Hypochromasia Present; Immature Granulocytes # (auto) 0.06 K/uL (0.01-0.20); Immature Granulocytes % (auto) 1.1 %
[2025-03-17 17:11] LABS: Alanine Aminotransferase 28.0 U/L (7-52); Albumin Globulin Ratio 1.3 (0.9-2); Alkaline Phosphatase 65.0 U/L (34-104); Anion Gap 7.0 (3-11); Bilirubin,Total 0.3 mg/dl (0.2-1.0); Blood Urea Nitrogen 13.0 mg/dl (6-23); Calcium 8.3 mg/dl (8.6-10.3); Carbon Dioxide 26.0 mmol/L (21-32); Chloride 106.0 mmol/L (98-107); Creatinine Clr Calc Pharmacy 97.3 ml/min; Globulin 2.6 gm/dl (2.5-4.0); Glucose 163.0 mg/dl (70-99(Fasting)); Magnesium 1.6 mg/dl (1.7-2.4); Potassium 2.8 mmol/L (3.5-5.1); Sodium 139.0 mmol/L (136-145); Total Protein 5.9 gm/dl (6.0-8.3)
[2025-03-17 17:29] LABS: INR 1.0 (0.9-1.1); Partial Thromboplastin Time 25 Seconds (21-31); Prothrombin Time 10.9 Seconds (9.0-12.0)
--- NOTE | 2025-03-17 17:33 | XRay Report ---
Clinical History: Dyspnea Technique: A frontal view of the chest was obtained Comparison is made to the prior examination dated 12/20/2020 Findings: There is mild patchy opacity in the right lung base. The heart size is at the upper limit of normal. No pleural effusion or pneumothorax is seen. There is diffuse interstitial prominence, concerning for mild pulmonary edema There is a left shoulder arthroplasty Impression: 1. Mild pulmonary edema 2. Possible right lower lobe pneumonia ACT 112: Positive. There are findings on this exam that require communication between the performing entity and the patient following Patient Test Result Information Act ([place] ACT 112) guidelines. Electronically signed by Danny Lobato 03-17-2025 5:32 PM
--- NOTE | 2025-03-17 18:00 | History & Physical Report ---
Date of Service March 17, 2025 Assessment & Plan (1) Iron deficiency anemia: (2) Heme positive stool: (3) Acute blood loss anemia: (4) Volume overload: (5) HTN (hypertension): (6) Hypothyroidism: (7) Hypokalemia: (8) Hypomagnesemia: (9) Hyperglycemia: (10) Morbid obesity with BMI of 40.0-44.9, adult: (11) Thrombocytopenia: Plan Very pleasant 80yo female with history of Graves Disease s/p radioactive iodine treatment many years ago with resulting post-ablation hypothyroidism, arthritis in numerous locations, chronic pain due to arthritis, lumbar DDD, and ?HTN presents with several days of worsening shortness of breath (at rest, with activity, and nocturnally), severe edema of both legs, swelling of her abdomen, fatigue & weakness, poor appetite, "dark" stools for 2-3 days, lesions of her right tongue, and several days of cough. #severe iron deficiency anemia / suspected acute blood loss anemia / heme+ stool - -suspect that patient has gastritis vs PUD vs other as the cause of iron deficiency anemia in light of chronic, high-dose motrin use along with daily aspirin use -Tx 1 unit PRBCs over 3 hours, then lasix IV -recheck H/H after the first unit; suspect will need 2nd unit, but would diurese first before giving the 2nd unit -she is hemodynamically stable at this time despite the severe anemia -agree with IV PPI -will consult gastroenterology for future consideration of EGD once more stable from volume standpoint -keep NPO -consider IV iron while here #severe dyspnea/MADDEN/volume overload - -exam is consistent with severe volume overload -give 1st unit of blood cautiously with lasix IV at the conclusion of the infusion -will need additional diuresis moving forward given the severity of her edema -echo in am -check COVID/flu/RSV given the pulmonary symptoms -no h/o liver disease -TSH wnl -check u/a - r/o severe proteinuria #hypokalemia/hypomagnesemia - -suspect 2nd to poor oral intake over the last several days -replace low K and low mag with IV supplements -serial K/mag levels #hypothyroidism - -TSH wnl in February 2025 -cont synthroid #?HTN - -BPs markedly elevated in the setting of volume overload -BPs should improve with diuresis -cont lisinopril, adjust as needed -await echo #hyperglycemia - -check a1c in am #thrombocytopenia - -etiology? consumptive in setting of GI bleeding? other? -check B12/folate levels -serial platelet levels -consider formal peripheral smear if platelets remain low #minimal elevation in troponin - -level is 15 - scantly above normal range; myocardial demand ischemia in setting of severe anemia, volume overload, etc. #DVT proph - -chemical means contraindicated in light of suspected GI bleeding & heme+ stool -SCDs would be challenging given the severity of her LE edema offered to call pt's children to update them - pt declined such pt having one of her friends call her children to provide them update instead History of Present Illness Chief Complaint: shortness of breath, swelling, fatigue Primary Care Provider: Della Brown, DO Very pleasant 80yo female with history of Graves Disease s/p radioactive iodine treatment many years ago with resulting post-ablation hypothyroidism, arthritis in numerous locations, chronic pain due to arthritis, lumbar DDD, and ?HTN presents with several days of worsening shortness of breath (at rest, with activity, and nocturnally), severe edema of both legs, swelling of her abdomen, fatigue & weakness, poor appetite, "dark" stools for 2-3 days, lesions of her right tongue, and several days of cough. She has been sleeping poorly because of the cough & shortness of breath. Denies any hematemesis, BRBPR, abdominal p ain. No fevers. Patient denies any alcohol use. She has been taking chronically for years motrin 800mg three times daily for arthritis as well as 81mg of aspirin daily. Upon ER presentation today her hemoglobin was 5.1. I consented her for PRBCs during the admission process. Questions answered. Allergies Allergy/AdvReac Type Severity Reaction Status Date / Time adhesive tape Allergy Intermediate tears skin Verified 03/17/25 18:36 Home Medications Medication Instructions Recorded Confirmed Type calcium 600 mg (as 1 cap PO BID 09/26/19 03/17/25 History carbonate)-vitamin D3 5 mcg (200 unit) capsule (Calcium 600 + D(3)) levothyroxine 88 mcg tablet 88 mcg PO DAILYBB 09/26/19 03/17/25 History multivitamin with minerals 1 tab PO QDL 09/26/19 03/17/25 History acetaminophen 500 mg tablet 1,000 mg PO Q6 PRN Pain 11/24/20 03/17/25 History aspirin 81 mg tablet,delayed 81 mg PO HS 11/24/20 03/17/25 History release amoxicillin 500 mg tablet 2,000 mg (4 x 500 mg) PO ONCE #4 11/25/20 03/17/25 Rx tabs diclofenac sodium 1 % topical gel 2 g topical QID PRN Pain 07/04/21 03/17/25 History faricimab-svoa 6 mg/0.05 mL 6 mg intravitreal UD 03/17/25 03/17/25 History intravitreal syringe (Vabysmo) ibandronate 150 mg tablet 150 mg PO MO 03/17/25 03/17/25 History ibuprofen 200 mg tablet (Advil) 800 mg PO Q6 PRN Pain 03/17/25 03/17/25 History lisinopril 2.5 mg tablet 2.5 mg PO DAILY 03/17/25 03/17/25 History Past Med/Surg History Problem List (Updated 03/17/25 @ 20:35 by Jaskraan Fisher MD) Thrombocytopenia Morbid obesity with BMI of 40.0-44.9, adult Hyperglycemia Hypomagnesemia Volume overload Heme positive stool Iron deficiency anemia Acute blood loss anemia Medical History (Updated 03/17/25 @ 20:35 by Jaskaran Fisher MD) HTN (hypertension) pt denies Hypothyroidism Stress fracture, right femur, initial encounter for fracture Fracture of femur left Osteoporosis Lumbar radiculopathy Lumbar spondylosis Spinal stenosis of lumbar region Vertebral compression fracture Severe T10, L4 Thoracic back pain Diffuse myofascial pain syndrome Stroke (~2008) R eye, ~15yrs ago. folllows with Dr Degroot ([facility]) with injections into the right eye every 6 weeks. Hx of fracture T11 compression fracture --> no surgical intervention, treated with rehab & physical therapy Degenerative disc disease Osteoarthritis Hx of Graves' disease radioactive iodine treatment Surgical History (Updated 03/17/25 @ 20:25 by Jaskaran Fisher MD) Status post reverse total replacement of left shoulder (~01/2021) H/O wisdom tooth extraction H/O vein stripping bilateral History of open reduction and internal fixation (ORIF) procedure Left femur History of total right hip arthroplasty Family History (Updated 03/17/25 @ 20:23 by Jaskaran Fisher MD) Mother Leukemia Father Adopted due to patient being adopted -- father's medical history unknown Other No family history of adverse response to anesthesia Social History (Updated 03/17/25 @ 20:22 by Jaskaran Fisher MD) Smoking Status: Never smoker Second Hand Exposure: No; Do You Dip or Chew Tobacco: No; Hx Alcohol Use: No Hx Substance Use: No Preferred Language: Russian Communication Ability: Effective Visual Impairment: No Limitations Meeting Specialist Required: No Beliefs That Will Affect Care: None marital status: / Current Living Situation: Alone current occupational status: retired 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 [employer] How many Children do You have: 5 Other Information That Helps Us Care for You: No Feels Safe at Home: Yes Safety Concerns: Feels Safe At This Time Assistive Devices: Glasses and Walker Review of Systems Review of Systems: gen - no fevers; recent loss of appetite; 10 pounds of weight gain over the last several days eyes - chronic right eye issues - receives injections by Dr Zane HUTSON - no URI symptoms; +tongue lesions/sores on right CV - no chest pain, but occasional chest tightness last few days; +edema; +orthopnea; +PND pulm - dyspnea at rest and with activity; +cough GI - no vomiting; dark stools x 2-3 days; no BRBPR; no pain - no LUTS musculo - chronic hip pain, right shoulder pain, back pain skin - no rash neuro - no focal motor weakness endo - no diabetes Physical Exam Physical Exam: gen - lying in bed, generalized pallor, no pain or distress; pleasant eyes - PERRL HENT - tongue with ulcers on right side, no glossitis; MMM neck - JVD present, no goiter, ?lymph node inferior right neck? CV - 2-3/6 systolic murmur RUSB and LSB; RRR, s1 s2 lungs - b/l basilar rales, no wheeze, no increased work of breathing abd - soft, distended with abdominal wall edema, NT, no HSM, BS+ ext - severe edema, 3-4+ b/l from feet to the thighs vascular - pulses b/l feet 2+ skin - no rash; generalized pallor rectal - chaperoned by ER nursing staff - Heme+ stool; stool was brown, however, grossly; no rectal masses psych - a/o x 3 neuro - strength 5/5 x 4 exts, no facial droop Results & Data Results & Data Vital Signs (Past 12 Hours) Vital Signs Temp Pulse Resp BP Pulse Ox O2 Del Method 03/17/25 16:32 79 03/17/25 16:15 36.3 C L 81 18 169/84 H 96 Room Air Laboratory Results Laboratory Results - last 24 hr 03/17/25 03/17/25 03/17/25 16:23 16:24 17:15 WBC 5.62 RBC 2.61 L Hgb 5.1 L* POC Hgb 5.8 L* Hct 19.1 L* POC Hct 17 L* MCV 73.2 L MCH 19.5 L MCHC 26.7 L RDW Std Deviation 66.7 H RDW Coeff of Malia 26.7 H Plt Count 52 L Immature Gran % (Auto) 1.1 Neut % (Auto) 64.7 Lymph % (Auto) 18.9 [place] % (Auto) 9.6 Eos % (Auto) 4.6 Baso % (Auto) 1.1 Neut # (Auto) 3.64 Lymph # (Auto) 1.06 L [place] # (Auto) 0.54 Eos # (Auto) 0.26 Baso # (Auto) 0.06 Immature Gran # (Auto) 0.06 Platelet Estimate Decreased L Hypochromasia Present Anisocytosis Present PT 10.9 INR 1.0 APTT 25 PTT Ratio 0.9 POC Sodium 140 Sodium 139 POC Potassium 2.7 L Potassium 2.8 L POC Chloride 102 Chloride 106 Carbon Dioxide 26 POC Total CO2 23 L Anion Gap 7 POC Anion Gap 18.0 POC BUN 11 BUN 13 Creatinine 0.42 L POC Creatinine 0.6 Est Cr Clr Drug Dosing 97.3 eGFR 97.60 BUN/Creatinine Ratio 31.0 H Glucose 163 H POC Glucose (other) 154 H Calcium 8.3 L POC Ioniz Calcium Rekha 1.16 Magnesium 1.6 L Iron 24 L TIBC 574 H Transferrin 410 H Transferrin % Sat 4 L Ferritin 12.3 Total Bilirubin 0.3 AST 26 ALT 28 Alkaline Phosphatase 65 Troponin I High Sens 15.2 H B-Natriuretic Peptide 298 H Total Protein 5.9 L Albumin 3.3 L Globulin 2.6 Albumin/Globulin Ratio 1.3 Vitamin B12 1232 H Folate > 22.30 SARS-CoV-2 (PCR) Influenza Type A (PCR) Influenza Type B (PCR) RSV (RT-PCR) Blood Type O Positive Antibody Screen NEGATIVE Crossmatch See Detail 03/17/25 19:25 WBC RBC Hgb POC Hgb Hct POC Hct MCV MCH MCHC RDW Std Deviation RDW Coeff of Malia Plt Count Immature Gran % (Auto) Neut % (Auto) Lymph % (Auto) [place] % (Auto) Eos % (Auto) Baso % (Auto) Neut # (Auto) Lymph # (Auto) [place] # (Auto) Eos # (Auto) Baso # (Auto) Immature Gran # (Auto) Platelet Estimate Hypochromasia Anisocytosis PT INR APTT PTT Ratio POC Sodium Sodium POC Potassium Potassium POC Chloride Chloride Carbon Dioxide POC Total CO2 Anion Gap POC Anion Gap POC BUN BUN Creatinine POC Creatinine Est Cr Clr Drug Dosing eGFR BUN/Creatinine Ratio Glucose POC Glucose (other) Calcium POC Ioniz Calcium Rekha Magnesium Iron TIBC Transferrin Transferrin % Sat Ferritin Total Bilirubin AST ALT Alkaline Phosphatase Troponin I High Sens B-Natriuretic Peptide Total Protein Albumin Globulin Albumin/Globulin Ratio Vitamin B12 Folate SARS-CoV-2 (PCR) NEGATIVE Influenza Type A (PCR) Negative Influenza Type B (PCR) Negative RSV (RT-PCR) Negative Blood Type Antibody Screen Crossmatch Diagnostic Findings Chest X-Ray 03/17/25 16:10 Clinical History: Dyspnea Technique: A frontal view of the chest was obtained Comparison is made to the prior examination dated 12/20/2020 Findings: There is mild patchy opacity in the right lung base. The heart size is at the upper limit of normal. No pleural effusion or pneumothorax is seen. There is diffuse interstitial prominence, concerning for mild pulmonary edema There is a left shoulder arthroplasty Impression: 1. Mild pulmonary edema 2. Possible right lower lobe pneumonia ACT 112: Positive. There are findings on this exam that require communication between the performing entity and the patient following Patient Test Result Information Act ([place] ACT 112) guidelines. Electronically signed by Danny Lobato 03-17-2025 5:32 PM ECG Additional Comments: EKG - my reading: NSR, RBBB, no ST changes Code Status & VTE Plan Code Status full code PG Care Time/CCT Total # of Minutes Spent Total Time Spent with Patient: Total time spent is greater than 50% in coordination of care (as documented) at patient's floor/unit and/or counseling patient: Coding Level of Care Code 97776 INT INP/OBS CARE 375MIN Diagnoses Iron deficiency anemia D50.9 Heme positive stool R19.5 Acute blood loss anemia D62 Volume overload E87.70 HTN (hypertension) I10 Hypertension type: essential hypertension Hypothyroidism E03.9 Hypokalemia E87.6 Hypomagnesemia E83.42 Hyperglycemia R73.9 Morbid obesity with BMI of 40.0-44.9, adult E66.01; Z68.41 Thrombocytopenia D69.6 (5) HTN (hypertension) Hypertension type: essential hypertension Qualified Code(s): I10 - Essential (primary) hypertension
[2025-03-17 18:22] LABS: Iron 24.0 mcg/dl (35-150); Transferrin 410.0 mg/dl (200-360)
[2025-03-17] MEDS: PANTOPRAZOLE BOLUS/DRIP IV STA (18:31)
[2025-03-17 18:43] LABS: Ferritin 12.3 ng/ml (8-388)
[2025-03-17 18:45] LABS: Total Iron Binding Cap Calc 574.0 mcg/dl (250-450); Transferrin (FE) Percent Satur 4.0 % (15-50)
[2025-03-17 18:49] LABS: Folate (Folic Acid),Ser orPlas > 22.30 ng/ml (>5.38)
[2025-03-17 18:50] LABS: Vitamin B12 1232 pg/ml (180-914)
[2025-03-17] MEDS: POTASSIUM CHLORIDE CRTAB 20 MEQ TABCR PO STA (18:53)
[2025-03-17] MEDS: CALCIUM GLUCONATE 1,000 MG/60 ML BAG IV STA (18:53)
[2025-03-17] MEDS: PANTOprazole 40 MG in DEXTROSE 5% MINI-B 100 ML IV SCH (19:20)
[2025-03-17] MEDS: MAGNESIUM SULFATE / D5W 1 GM/100 ML BAG IV STA (19:21)
[2025-03-17] MEDS: POTASSIUM CHLORIDE / WTR 10 MEQ/100 ML PLCT IV SCH (19:30)
[2025-03-17 20:15] LABS: Influenza A virus by PCR Negative (Neg); Influenza B virus by PCR Negative (Neg); SARS CoV2 RNA(COVID-19) Ceph NEGATIVE (Negative)
[2025-03-17] MEDS: ACETAMINOPHEN 500 MG TAB PO STA (20:30)
[2025-03-17 21:18] LABS: Appearance Urine Clear (Clear); Glucose Urine UA Negative (Negative)
[2025-03-17] MEDS: FUROSEMIDE 40 MG/4 ML VIAL IV ONE (23:07)
[2025-03-17] MEDS: FIRST - Mouthwash BLM 5 ML UDP PO SCH (23:07)
[2025-03-18] MEDS: FUROSEMIDE INJ 20 MG/2 ML VIAL IV ONE ×3 (00:33→02:36)
[2025-03-18 01:26] LABS: Hematocrit (blood only) 21.8 % (37.0-47.0); Hemoglobin 6.2 g/dl (12.0-16.0); Mean Corpuscular Hemoglobin 20.8 pg (25.0-34.0); Mean Corpuscular Volume 73.2 fL (80.0-100.0); Platelet Count 57 K/uL (130-400); RDW Standard Deviation 69.0 fL (36.4-46.3); Red Blood Count 2.98 M/uL (4.20-5.40); White Blood Count 5.25 K/ul (4.8-10.8)
[2025-03-18 01:34] LABS: Anion Gap 7.0 (3-11); Blood Urea Nitrogen 8.0 mg/dl (6-23); Calcium 8.4 mg/dl (8.6-10.3); Carbon Dioxide 28.0 mmol/L (21-32); Chloride 104.0 mmol/L (98-107); Creatinine Clr Calc Pharmacy 107.2 ml/min; Glucose 103.0 mg/dl (70-99(Fasting)); Magnesium 1.6 mg/dl (1.7-2.4); Potassium 3.1 mmol/L (3.5-5.1); Sodium 139.0 mmol/L (136-145)
[2025-03-18] MEDS ORDERED: SODIUM CHLORIDE 0.9% 100 ML IV PRN ×2 (01:41→01:42)
[2025-03-18] MEDS: ACETAMINOPHEN 500 MG TAB PO PRN (02:09)
[2025-03-18] MEDS: MAGNESIUM SULFATE / D5W 1 GM/100 ML BAG IV SCH (03:04)
[2025-03-18] MEDS: POTASSIUM CHLORIDE / WTR 10 MEQ/100 ML PLCT IV SCH (03:04)
[2025-03-18] MEDS: LEVOTHYROXINE SODIUM 88 MCG TABLET PO SCH (06:02)
[2025-03-18 06:38] LABS: Microcytosis Present
[2025-03-18 07:24] LABS: Hematocrit (blood only) 23.5 % (37.0-47.0); Hemoglobin 7.2 g/dl (12.0-16.0); Mean Corpuscular Hemoglobin 22.4 pg (25.0-34.0); Mean Corpuscular Volume 73.2 fL (80.0-100.0); Platelet Count 52 K/uL (130-400); RDW Standard Deviation 64.8 fL (36.4-46.3); Red Blood Count 3.21 M/uL (4.20-5.40); White Blood Count 6.13 K/ul (4.8-10.8)
[2025-03-18 07:27] LABS: Hemoglobin A1C 6.0 % (4.5-5.6)
[2025-03-18 07:33] LABS: Anion Gap 7.0 (3-11); Calcium 7.9 mg/dl (8.6-10.3); Carbon Dioxide 28.0 mmol/L (21-32); Chloride 103.0 mmol/L (98-107); Magnesium 2.1 mg/dl (1.7-2.4); Potassium 3.7 mmol/L (3.5-5.1); Sodium 138.0 mmol/L (136-145)
[2025-03-18 07:39] LABS: Blood Urea Nitrogen 7.0 mg/dl (6-23); Creatinine Clr Calc Pharmacy 110.2 ml/min; Glucose 97.0 mg/dl (70-99(Fasting))
--- NOTE | 2025-03-18 08:36 | Gastrointestinal Consultation ---
Date of Consultation March 18, 2025 Assessment & Plan (1) Iron deficiency anemia: 80 year old female with history of Graves Disease s/p radioactive iodine treatment, arthritis w/ chronic pain, lumbar DDD, and HTN admitted through the ED w/ symptomatic anemia, report of heme positive stools w/ HGB 5.1 s/p 2 units w/ HGB 7.2 this AM. Denies family history of colon cancer, no report of AC but she does use ASA daily and Motrin 3/4 tablets 3 times daily. Clear liquids today Golytely bowel prep NPO after midnight EGD/Colonoscopy 03/19/25 Trend H&H Transfuse PRN per primary service Monitor and document output Continue IV PPI I spent a total of 60 minutes on the date of service in review of patient's record, and previously obtained information in person and appropriate medical visit, discussion and education of plan, with patient and/or caregiver, placing orders for tests/referral/procedures as medically necessary and documentation of pertinent clinical information in patient's medical records for their visit today.Thank you for allowing us to participate in the care of this patient. Please call with any acute changes, questions or concerns. Please see addendum below with additional recommendation from my supervising physician. We appreciate assistance in the management of any serological abnormality and corrections to include: hemoglobin >7, INR <2, platelets >50,000, potassium levels >3.5 but <5.3, and sodium levels within 5 points of the reference range prior to endoscopic evaluation. Supervising Physician Co-Signing Physician Notes I personally saw and examined the patient. I have reviewed the chart and agree with the documentation provided by the BANQUET BARTENDER including discussion about the assessment, treatment and plan. Briefly, 80 year old female with history of Graves Disease s/p radioactive iodine treatment, arthritis w/ chronic pain, lumbar DDD, and HTN admitted through the ED w/ symptomatic anemia and concern for GI bleeding. Pt was seen and evaluated, chart reviewed. She suggests she has felt some fatigue, SOB ongoing for some time. She denies any abdominal concerns. On arrival to ED, she was anemia w/ HGB 5.1. she was transfused x 2 units w/ HGB 7.2 this AM. She denies any abd pain. No change in bowel habits. No report of black or bloody stools. Her stools are dark brown. She has never had a colonoscopy or endoscopy, we will prep her today and plan for a double procedure tomorrow. In the meantime keep her on PPI twice daily. She will be on a liquid diet today. History of Present Illness Reason for Consultation: severe Fe Def Anemia, suspected UGI bleed/heme+ Requesting Physician: Jaskaran Fisher MD Attending Physician: Jaskaran Fisher MD History of Present Illness 80 year old female with history of Graves Disease s/p radioactive iodine treatme nt, arthritis w/ chronic pain, lumbar DDD, and HTN admitted through the ED w/ symptomatic anemia and concern for GI bleeding. Pt was seen and evaluated, chart reviewed. She suggests she has felt some fatigue, SOB ongoing for some time. She denies any abdominal concerns. On arrival to ED, she was anemia w/ HGB 5.1. she was transfused x 2 units w/ HGB 7.2 this AM. She denies any abd pain. No change in bowel habits. No report of black or bloody stools. Her stools are dark brown. She denies heartburn, reflux/regurgitation. She may have some difficultly swallowing but she is unsure if this is due to frequent sore throats. Denies family history of colon cancer. No ETOH No tobacco She uses Motrin 3/4 tablets 3 times daily. ASA daily No AC HGB 5.1 --> 2 units --> 7.2 PLT 52 INR 1 BUN 7 w. DIRECTOR OF TECHNOLOGY 0.36 Iron 24 Ferritin 12.3 TB 0.3 AST 26 ALT 28 ALKP 65 BNP 298 No recent GI imaging No recent EGD/Colon identified in [facility] or [facility] records Allergies Allergy/AdvReac Type Severity Reaction Status Date / Time adhesive tape Allergy Intermediate tears skin Verified 03/17/25 18:36 Home Medications Medication Instructions Recorded Confirmed Type calcium 600 mg (as 1 cap PO BID 09/26/19 03/17/25 History carbonate)-vitamin D3 5 mcg (200 unit) capsule (Calcium 600 + D(3)) levothyroxine 88 mcg tablet 88 mcg PO DAILYBB 09/26/19 03/17/25 History multivitamin with minerals 1 tab PO QDL 09/26/19 03/17/25 History acetaminophen 500 mg tablet 1,000 mg PO Q6 PRN Pain 11/24/20 03/17/25 History aspirin 81 mg tablet,delayed 81 mg PO HS 11/24/20 03/17/25 History release amoxicillin 500 mg tablet 2,000 mg (4 x 500 mg) PO ONCE #4 11/25/20 03/17/25 Rx tabs diclofenac sodium 1 % topical gel 2 g topical QID PRN Pain 07/04/21 03/17/25 History faricimab-svoa 6 mg/0.05 mL 6 mg intravitreal UD 03/17/25 03/17/25 History intravitreal syringe (Vabysmo) ibandronate 150 mg tablet 150 mg PO MO 03/17/25 03/17/25 History ibuprofen 200 mg tablet (Advil) 800 mg PO Q6 PRN Pain 03/17/25 03/17/25 History lisinopril 2.5 mg tablet 2.5 mg PO DAILY 03/17/25 03/17/25 History Patient History Medical History HTN (hypertension) pt denies Hypothyroidism Stress fracture, right femur, initial encounter for fracture Fracture of femur left Osteoporosis Lumbar radiculopathy Lumbar spondylosis Spinal stenosis of lumbar region Vertebral compression fracture Severe T10, L4 Thoracic back pain Diffuse myofascial pain syndrome Stroke (~2008) R eye, ~15yrs ago. folllows with Dr Degroot ([facility]) with injections into the right eye every 6 weeks. Hx of fracture T11 compression fracture --> no surgical intervention, treated with rehab & physical therapy Degenerative disc disease Osteoarthritis Hx of Graves' disease radioactive iodine treatment Surgical History Status post reverse total replacement of left shoulder (~01/2021) H/O wisdom tooth extraction H/O vein stripping bilateral History of open reduction and internal fixation (ORIF) procedure Left femur History of total right hip arthroplasty Family History Mother Leukemia Father Adopted due to patient being adopted -- father's medical history unknown Other No family history of adverse response to anesthesia Social History Smoking Status: Never smoker Second Hand Exposure: No; Do You Dip or Chew Tobacco: No; Hx Alcohol Use: No Hx Substance Use: No Preferred Language: Panamanian Communication Ability: Effective Visual Impairment: No Limitations Multiple Resaw Operator Required: No Beliefs That Will Affect Care: None marital status: / Current Living Situation: Alone current occupational status: retired 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 Physical Exam Constitutional: WD/WN, vitals as above Respiratory: normal respiratory effort, lungs clear to auscultation Cardiovascular: Rate/Rhythm: regular rate Gastrointestinal (Abdomen): normal bowel sounds, soft, nontender, no hepatosplenomegaly Skin: no rashes, warm and dry Results & Data Vital Signs (Past 12 Hours) Vital Signs Temp Pulse Pulse Resp BP BP Pulse Ox 03/18/25 08:02 97.9 F 79 19 159/72 H 93 03/18/25 05:30 82 03/18/25 04:53 97.7 F 78 16 150/76 H 93 03/18/25 03:53 97.9 F 79 14 157/78 H 94 03/18/25 03:23 97.7 F 82 18 160/83 H 95 03/18/25 03:08 97.7 F 78 16 169/85 H 95 03/18/25 02:51 98.1 F 82 18 110/61 95 03/18/25 02:48 98.1 F 82 18 110/61 94 03/17/25 22:45 98.2 F 84 20 164/90 H 95 03/17/25 22:41 03/17/25 22:37 03/17/25 22:30 98.1 F 81 20 164/90 H 95 03/17/25 21:45 98.1 F 79 18 183/96 H 94 03/17/25 21:15 97.9 F 84 18 186/112 H 97 03/17/25 21:00 97.7 F 83 18 180/91 H 92 03/17/25 20:42 97.7 F 87 12 192/110 H 03/17/25 20:38 84 Pulse Ox O2 Del Method O2 Del Method 03/18/25 08:02 Room Air 03/18/25 05:30 03/18/25 04:53 03/18/25 03:53 03/18/25 03:23 03/18/25 03:08 03/18/25 02:51 03/18/25 02:48 03/17/25 22:45 03/17/25 22:41 Room Air 03/17/25 22:37 95 Room Air 03/17/25 22:30 Room Air 03/17/25 21:45 03/17/25 21:15 03/17/25 21:00 03/17/25 20:42 03/17/25 20:38 Laboratory Results 03/18/25 03/18/25 03/17/25 Range/Units 06:51 00:50 20:50 WBC 6.13 5.25 (4.8-10.8) K/ul RBC 3.21 L 2.98 L (4.20-5.40) M/uL Hgb 7.2 L 6.2 L* (12.0-16.0) g/dl POC Hgb (12.0-16.0) g/dl Hct 23.5 L 21.8 L (37.0-47.0) % POC Hct (37-47) % MCV 73.2 L 73.2 L (80.0-100.0) fL MCH 22.4 L 20.8 L (25.0-34.0) pg MCHC 30.6 L 28.4 L (32.0-36.0) g/dL RDW Std Deviation 64.8 H 69.0 H (36.4-46.3) fL RDW Coeff of Malia 25.2 H 26.7 H (11.5-14.5) % Plt Count 52 L 57 L (130-400) K/uL Immature Gran % (Auto) % Neut % (Auto) % Lymph % (Auto) % [place] % (Auto) % Eos % (Auto) % Baso % (Auto) % Neut # (Auto) (1.40-6.50) K/uL Lymph # (Auto) (1.20-3.40) K/uL [place] # (Auto) (0.11-0.59) K/uL Eos # (Auto) (0.00-0.50) K/uL Baso # (Auto) (0.00-0.20) K/uL Immature Gran # (Auto) (0.01-0.20) K/uL Platelet Estimate (Normal) Hypochromasia Anisocytosis Microcytosis PT (9.0-12.0) Seconds INR (0.9-1.1) APTT (21-31) Seconds PTT Ratio POC Sodium (135-144) mmol/L Sodium 138 139 (136-145) mmol/L POC Potassium (3.3-5.0) mmol/L Potassium 3.7 3.1 L (3.5-5.1) mmol/L POC Chloride (101-112) mmol/L Chloride 103 104 (98-107) mmol/L Carbon Dioxide 28 28 (21-32) mmol/L POC Total CO2 (24-31) mmol/L Anion Gap 7 7 (3-11) POC Anion Gap (16-25) mmol/L POC BUN (7-18) mg/dl BUN 7 8 (6-23) mg/dl Creatinine 0.36 L 0.38 L (0.6-1.2) mg/dl POC Creatinine (0.6-1.3) mg/dl Est Cr Clr Drug Dosing 110.2 107.2 ml/min eGFR 101.30 99.98 BUN/Creatinine Ratio 19.4 21.1 H (10-20) Glucose 97 103 H (70-99(Fasting)) mg/dl POC Glucose (other) (70-99) mg/dl Estimat Average Glucose 126 mg/dl Hemoglobin A1c 6.0 H (4.5-5.6) % Calcium 7.9 L 8.4 L (8.6-10.3) mg/dl POC Ioniz Calcium Rekha (1.12-1.32) mmol/l Magnesium 2.1 1.6 L (1.7-2.4) mg/dl Iron (35-150) mcg/dl TIBC (250-450) mcg/dl Transferrin (200-360) mg/dl Transferrin % Sat (15-50) % Ferritin (8-388) ng/ml Total Bilirubin (0.2-1.0) mg/dl AST (13-39) U/L ALT (7-52) U/L Alkaline Phosphatase (34-104) U/L Troponin I High Sens (0-14) pg/ml B-Natriuretic Peptide (0-100) pg/ml Total Protein (6.0-8.3) gm/dl Albumin (3.4-5.0) gm/dl Globulin (2.5-4.0) gm/dl Albumin/Globulin Ratio (0.9-2) Vitamin B12 (180-914) pg/ml Folate (>5.38) ng/ml Urine Color Yellow Urine Appearance Clear (Clear) Urine pH 7.0 (4.5-7.5) Ur Specific [place] 1.008 (1.000-1.030) Urine Protein Negative (Negative) Urine Glucose (UA) Negative (Negative) Urine Ketones Negative (Negative) Urine Blood Negative (Negative) Urine Nitrite Negative (Negative) Urine Bilirubin Negative (Negative) Urine Urobilinogen Negative (Negative) Ur Leukocyte Esterase Negative (Negative) Urine Comment SARS-CoV-2 (PCR) (Negative) Influenza Type A (PCR) (Neg) Influenza Type B (PCR) (Neg) RSV (RT-PCR) (Neg) Blood Type Antibody Screen Crossmatch 03/17/25 03/17/25 03/17/25 Range/Units 19:25 17:15 16:24 WBC (4.8-10.8) K/ul RBC (4.20-5.40) M/uL Hgb (12.0-16.0) g/dl POC Hgb 5.8 L* (12.0-16.0) g/dl Hct (37.0-47.0) % POC Hct 17 L* (37-47) % MCV (80.0-100.0) fL MCH (25.0-34.0) pg MCHC (32.0-36.0) g/dL RDW Std Deviation (36.4-46.3) fL RDW Coeff of Malia (11.5-14.5) % Plt Count (130-400) K/uL Immature Gran % (Auto) % Neut % (Auto) % Lymph % (Auto) % [place] % (Auto) % Eos % (Auto) % Baso % (Auto) % Neut # (Auto) (1.40-6.50) K/uL Lymph # (Auto) (1.20-3.40) K/uL [place] # (Auto) (0.11-0.59) K/uL Eos # (Auto) (0.00-0.50) K/uL Baso # (Auto) (0.00-0.20) K/uL Immature Gran # (Auto) (0.01-0.20) K/uL Platelet Estimate (Normal) Hypochromasia Anisocytosis Microcytosis PT (9.0-12.0) Seconds INR (0.9-1.1) APTT (21-31) Seconds PTT Ratio POC Sodium 140 (135-144) mmol/L Sodium (136-145) mmol/L POC Potassium 2.7 L (3.3-5.0) mmol/L Potassium (3.5-5.1) mmol/L POC Chloride 102 (101-112) mmol/L Chloride (98-107) mmol/L Carbon Dioxide (21-32) mmol/L POC Total CO2 23 L (24-31) mmol/L Anion Gap (3-11) POC Anion Gap 18.0 (16-25) mmol/L POC BUN 11 (7-18) mg/dl BUN (6-23) mg/dl Creatinine (0.6-1.2) mg/dl POC Creatinine 0.6 (0.6-1.3) mg/dl Est Cr Clr Drug Dosing ml/min eGFR BUN/Creatinine Ratio (10-20) Glucose (70-99(Fasting)) mg/dl POC Glucose (other) 154 H (70-99) mg/dl Estimat Average Glucose mg/dl Hemoglobin A1c (4.5-5.6) % Calcium (8.6-10.3) mg/dl POC Ioniz Calcium Rekha 1.16 (1.12-1.32) mmol/l Magnesium (1.7-2.4) mg/dl Iron (35-150) mcg/dl TIBC (250-450) mcg/dl Transferrin (200-360) mg/dl Transferrin % Sat (15-50) % Ferritin (8-388) ng/ml Total Bilirubin (0.2-1.0) mg/dl AST (13-39) U/L ALT (7-52) U/L Alkaline Phosphatase (34-104) U/L Troponin I High Sens (0-14) pg/ml B-Natriuretic Peptide (0-100) pg/ml Total Protein (6.0-8.3) gm/dl Albumin (3.4-5.0) gm/dl Globulin (2.5-4.0) gm/dl Albumin/Globulin Ratio (0.9-2) Vitamin B12 (180-914) pg/ml Folate (>5.38) ng/ml Urine Color Urine Appearance (Clear) Urine pH (4.5-7.5) Ur Specific [place] (1.000-1.030) Urine Protein (Negative) Urine Glucose (UA) (Negative) Urine Ketones (Negative) Urine Blood (Negative) Urine Nitrite (Negative) Urine Bilirubin (Negative) Urine Urobilinogen (Negative) Ur Leukocyte Esterase (Negative) Urine Comment SARS-CoV-2 (PCR) NEGATIVE (Negative) Influenza Type A (PCR) Negative (Neg) Influenza Type B (PCR) Negative (Neg) RSV (RT-PCR) Negative (Neg) Blood Type O Positive Antibody Screen NEGATIVE Crossmatch See Detail 03/17/25 Range/Units 16:23 WBC 5.62 (4.8-10.8) K/ul RBC 2.61 L (4.20-5.40) M/uL Hgb 5.1 L* (12.0-16.0) g/dl POC Hgb (12.0-16.0) g/dl Hct 19.1 L* (37.0-47.0) % POC Hct (37-47) % MCV 73.2 L (80.0-100.0) fL MCH 19.5 L (25.0-34.0) pg MCHC 26.7 L (32.0-36.0) g/dL RDW Std Deviation 66.7 H (36.4-46.3) fL RDW Coeff of Malia 26.7 H (11.5-14.5) % Plt Count 52 L (130-400) K/uL Immature Gran % (Auto) 1.1 % Neut % (Auto) 64.7 % Lymph % (Auto) 18.9 % [place] % (Auto) 9.6 % Eos % (Auto) 4.6 % Baso % (Auto) 1.1 % Neut # (Auto) 3.64 (1.40-6.50) K/uL Lymph # (Auto) 1.06 L (1.20-3.40) K/uL [place] # (Auto) 0.54 (0.11-0.59) K/uL Eos # (Auto) 0.26 (0.00-0.50) K/uL Baso # (Auto) 0.06 (0.00-0.20) K/uL Immature Gran # (Auto) 0.06 (0.01-0.20) K/uL Platelet Estimate Decreased L (Normal) Hypochromasia Present Anisocytosis Present Microcytosis Present PT 10.9 (9.0-12.0) Seconds INR 1.0 (0.9-1.1) APTT 25 (21-31) Seconds PTT Ratio 0.9 POC Sodium (135-144) mmol/L Sodium 139 (136-145) mmol/L POC Potassium (3.3-5.0) mmol/L Potassium 2.8 L (3.5-5.1) mmol/L POC Chloride (101-112) mmol/L Chloride 106 (98-107) mmol/L Carbon Dioxide 26 (21-32) mmol/L POC Total CO2 (24-31) mmol/L Anion Gap 7 (3-11) POC Anion Gap (16-25) mmol/L POC BUN (7-18) mg/dl BUN 13 (6-23) mg/dl Creatinine 0.42 L (0.6-1.2) mg/dl POC Creatinine (0.6-1.3) mg/dl Est Cr Clr Drug Dosing 97.3 ml/min eGFR 97.60 BUN/Creatinine Ratio 31.0 H (10-20) Glucose 163 H (70-99(Fasting)) mg/dl POC Glucose (other) (70-99) mg/dl Estimat Average Glucose mg/dl Hemoglobin A1c (4.5-5.6) % Calcium 8.3 L (8.6-10.3) mg/dl POC Ioniz Calcium Rekha (1.12-1.32) mmol/l Magnesium 1.6 L (1.7-2.4) mg/dl Iron 24 L (35-150) mcg/dl TIBC 574 H (250-450) mcg/dl Transferrin 410 H (200-360) mg/dl Transferrin % Sat 4 L (15-50) % Ferritin 12.3 (8-388) ng/ml Total Bilirubin 0.3 (0.2-1.0) mg/dl AST 26 (13-39) U/L ALT 28 (7-52) U/L Alkaline Phosphatase 65 (34-104) U/L Troponin I High Sens 15.2 H (0-14) pg/ml B-Natriuretic Peptide 298 H (0-100) pg/ml Total Protein 5.9 L (6.0-8.3) gm/dl Albumin 3.3 L (3.4-5.0) gm/dl Globulin 2.6 (2.5-4.0) gm/dl Albumin/Globulin Ratio 1.3 (0.9-2) Vitamin B12 1232 H (180-914) pg/ml Folate > 22.30 (>5.38) ng/ml Urine Color Urine Appearance (Clear) Urine pH (4.5-7.5) Ur Specific [place] (1.000-1.030) Urine Protein (Negative) Urine Glucose (UA) (Negative) Urine Ketones (Negative) Urine Blood (Negative) Urine Nitrite (Negative) Urine Bilirubin (Negative) Urine Urobilinogen (Negative) Ur Leukocyte Esterase (Negative) Urine Comment SARS-CoV-2 (PCR) (Negative) Influenza Type A (PCR) (Neg) Influenza Type B (PCR) (Neg) RSV (RT-PCR) (Neg) Blood Type Antibody Screen Crossmatch PG Care Time/CCT Total # of Minutes Spent Total Time Spent with Patient: Total time spent is greater than 50% in coordination of care (as documented) at patient's floor/unit and/or counseling patient: Coding Level of Care Code 59335 INT INP/OBS CARE 2/55MIN Diagnoses Iron deficiency anemia D50.9
[2025-03-18] MEDS: PERFLUTREN LIPID MICROSPHERE (DEFINITY) IV ONE (09:27)
--- NOTE | 2025-03-18 11:33 | XCELERA ---
[id number]
--- NOTE | 2025-03-18 17:49 | Hospitalist Progress Note ---
Date of Service March 18, 2025 Assessment & Plan (1) Iron deficiency anemia: (2) Heme positive stool: (3) Acute blood loss anemia: (4) Volume overload: (5) HTN (hypertension): (6) Hypothyroidism: (7) Hypokalemia: (8) Hypomagnesemia: (9) Hyperglycemia: (10) Morbid obesity with BMI of 40.0-44.9, adult: (11) Thrombocytopenia: (12) Abnormal CXR: Plan Very pleasant 80yo female with history of Graves Disease s/p radioactive iodine treatment many years ago with resulting post-ablation hypothyroidism, chronic pain due to arthritis, lumbar DDD, and ?HTN presented with several days of worsening shortness of breath (at rest, with activity, and nocturnally), severe edema of both legs, swelling of her abdomen, fatigue & weakness, poor appetite, "dark" stools for 2-3 days, lesions of her right tongue, and several days of cough. #severe iron deficiency anemia // suspected acute [or acute on chronic] blood loss anemia // heme + stool - -patient had been taking high-dose motrin along with daily aspirin at home chronically; at risk of PUD vs gastritis vs other -s/p 2 units PRBCs since admission with improved H/H; no overt GI bleeding since admission -recheck H/H this afternoon for stability, then CBC in am tomorrow -remains hemodynamically stable -cont IV PPI drip -appreciate GI consultation -plan was for EGD/colonoscopy tomorrow on 03/19, however I am concerned her volume status is still not optimal to undergo these procedures -corresponded with GI - we will postpone the scopes to 03/22 to allow optimization of her volume status, etc. -consider IV iron while here (ferritin 12, transferrin sat 4%, etc) #severe dyspnea/MADDEN/volume overload - -exam has been consistent with severe volume overload -has diuresed 5+ liters since admission -echo with preserved EF - 55-60% - thus, volume overload likely due to acute HFpEF (severe anemia may have caused high output CHF) -COVID/flu/RSV negative -no h/o liver disease, but will obtain abdominal u/s tomorrow AM to rule out such -TSH wnl -u/a without proteinuria -albumin level wnl -repeat BMP in am -repeat a CXR 2-view today; admit CXR with ?RLL pneumonia -if repeat CXR shows RLL pneumonia start rocephin & doxy IV #hypokalemia/hypomagnesemia - -suspect 2nd to poor oral intake over the last several days -replaced and improved -cont K and mag supplementation #hypothyroidism - -TSH wnl in February 2025 -cont synthroid #?HTN - -BPs were markedly elevated in the setting of volume overload at time of admission despite her severe anemia -BPs have improved with diuresis -hold lisinopril for now -echo results noted #hyperglycemia - -a1c 6% c/w pre-DM --> will cancer genetic counselor patient #thrombocytopenia - -etiology? consumptive in setting of GI bleeding? other? -checked B12/folate levels --> both wnl -serial platelet levels -consider formal peripheral smear if platelets remain low -no signs of hemolysis to suggest TTP -check size of spleen on abd u/s #minimal elevation in troponin - -level was 15 - scantly above normal range; myocardial demand ischemia in setting of severe anemia, volume overload, etc. #DVT proph - -chemical means contraindicated in light of suspected GI bleeding & heme+ stool -SCDs would be challenging given the severity of her LE edema -add SCDs once LE edema is improved -ambulation will update pt's family tomorrow Admission and Anticipated Discharge Date Admission Date: March 17, 2025 Subjective tele overnight wnl patient's breathing is about the same -no better, no worse still with cough no chest pain no abd pain no vomiting still quite short of breath with any activity urine output has been robust -- 5+ liters of UOP since admission last evening Review of Systems Review of Systems: gen - no fevers or chills cv - ongoing edema of legs GI - abdominal wall swelling is improved from yesterday pulm - ongoing dyspnea and MADDEN Physical Exam Physical Exam: gen - lying in bed, generalized pallor is improved; looks tired HENT - MMM neck - JVD+ CV - 2-3/6 systolic murmur LSB; RRR, s1 s2 lungs - b/l basilar rales - R>L; no wheeze, no increased work of breathing abd - soft, distension improved, NT, no HSM, BS+ ext - 3+ b/l from feet to the knees; thigh edema improved vascular - pulses b/l feet 2+ skin - generalized pallor improved Results & Data Results & Data Vital Signs (Past 12 Hours) Vital Signs Temp Pulse Resp BP Pulse Ox O2 Del Method 03/18/25 15:55 36.4 C L 80 20 151/73 H 93 Room Air 03/18/25 11:42 36.4 C L 80 19 140/66 93 Room Air 03/18/25 10:27 Room Air 03/18/25 08:02 36.6 C 79 19 159/72 H 93 Room Air Laboratory Results Laboratory Results - last 48 hr 03/17/25 03/17/25 03/17/25 16:23 17:15 19:25 WBC RBC Hgb Hct MCV MCH MCHC RDW Std Deviation RDW Coeff of Malia Plt Count Microcytosis Present Sodium Potassium Chloride Carbon Dioxide Anion Gap BUN Creatinine Est Cr Clr Drug Dosing eGFR BUN/Creatinine Ratio Glucose Estimat Average Glucose Hemoglobin A1c Calcium Magnesium Urine Color Urine Appearance Urine pH Ur Specific [place] Urine Protein Urine Glucose (UA) Urine Ketones Urine Blood Urine Nitrite Urine Bilirubin Urine Urobilinogen Ur Leukocyte Esterase Urine Comment SARS-CoV-2 (PCR) NEGATIVE Influenza Type A (PCR) Negative Influenza Type B (PCR) Negative RSV (RT-PCR) Negative Blood Type O Positive Antibody Screen NEGATIVE Crossmatch See Detail 03/17/25 03/18/25 03/18/25 20:50 00:50 06:51 WBC 5.25 6.13 RBC 2.98 L 3.21 L Hgb 6.2 L* 7.2 L Hct 21.8 L 23.5 L MCV 73.2 L 73.2 L MCH 20.8 L 22.4 L MCHC 28.4 L 30.6 L RDW Std Deviation 69.0 H 64.8 H RDW Coeff of Malia 26.7 H 25.2 H Plt Count 57 L 52 L Microcytosis Sodium 139 138 Potassium 3.1 L 3.7 Chloride 104 103 Carbon Dioxide 28 28 Anion Gap 7 7 BUN 8 7 Creatinine 0.38 L 0.36 L Est Cr Clr Drug Dosing 107.2 110.2 eGFR 99.98 101.30 BUN/Creatinine Ratio 21.1 H 19.4 Glucose 103 H 97 Estimat Average Glucose 126 Hemoglobin A1c 6.0 H Calcium 8.4 L 7.9 L Magnesium 1.6 L 2.1 Urine Color Yellow Urine Appearance Clear Urine pH 7.0 Ur Specific [place] 1.008 Urine Protein Negative Urine Glucose (UA) Negative Urine Ketones Negative Urine Blood Negative Urine Nitrite Negative Urine Bilirubin Negative Urine Urobilinogen Negative Ur Leukocyte Esterase Negative Urine Comment SARS-CoV-2 (PCR) Influenza Type A (PCR) Influenza Type B (PCR) RSV (RT-PCR) Blood Type Antibody Screen Crossmatch PG Care Time/CCT Total # of Minutes Spent Total Time Spent with Patient: Total time spent is greater than 50% in coordination of care (as documented) at patient's floor/unit and/or counseling patient: Coding Level of Care Code 61781 SUB INP/OBS CARE 3/50MIN Diagnoses Iron deficiency anemia D50.9 Heme positive stool R19.5 Acute blood loss anemia D62 Volume overload E87.70 Hypervolemia type: unspecified HTN (hypertension) I10 Hypertension type: essential hypertension Hypothyroidism E03.9 Hypokalemia E87.6 Hypomagnesemia E83.42 Hyperglycemia R73.9 Morbid obesity with BMI of 40.0-44.9, adult E66.01; Z68.41 Thrombocytopenia D69.6 Abnormal CXR R93.89 (4) Volume overload Hypervolemia type: unspecified Qualified Code(s): E87.70 - Fluid overload, unspecified (5) HTN (hypertension) Hypertension type: essential hypertension Qualified Code(s): I10 - Essential (primary) hypertension
[2025-03-18 17:58] LABS: Hematocrit (blood only) 26.1 % (37.0-47.0); Hemoglobin 7.5 g/dl (12.0-16.0)
[2025-03-18] MEDS: LAVAGE SOLUTION 4000ML PO SCH (18:41)
--- NOTE | 2025-03-18 19:44 | XRay Report ---
Clinical History: Pulmonary edema Technique: PA and lateral views of the chest were obtained Comparison is made to the prior examination dated 03/17/2025 Findings: There is mild right lower lobe opacity. The heart is enlarged. No pleural effusion or pneumothorax is seen. There is suspected emphysema There is an unchanged T11 compression fracture. There is thoracic degenerative disc disease. There is a left shoulder arthroplasty Impression: 1. Possible right lower lobe pneumonia 2. Cardiomegaly ACT 112: Positive. There are findings on this exam that require communication between the performing entity and the patient following Patient Test Result Information Act ([place] ACT 112) guidelines. Electronically signed by Danny Lobato 03-18-2025 7:43 PM
[2025-03-18] MEDS: DOXYCYCLINE HYCLATE 100 MG in DEXTROSE 5% MINI-B 100 ML IV SCH (20:18)
[2025-03-18] MEDS: cefTRIAXone SODIUM 2,000 MG/50 ML BAG IV SCH (20:18)
[2025-03-19] MEDS: MELATONIN 3 MG TAB PO PRN (01:50)
[2025-03-19 08:06] LABS: Anion Gap 6.0 (3-11); Blood Urea Nitrogen 4.0 mg/dl (6-23); Calcium 7.9 mg/dl (8.6-10.3); Carbon Dioxide 30.0 mmol/L (21-32); Chloride 104.0 mmol/L (98-107); Creatinine Clr Calc Pharmacy 112.6 ml/min; Glucose 97.0 mg/dl (70-99(Fasting)); Magnesium 1.8 mg/dl (1.7-2.4); Potassium 3.3 mmol/L (3.5-5.1); Sodium 140.0 mmol/L (136-145)
[2025-03-19 08:15] LABS: Hematocrit (blood only) 24.0 % (37.0-47.0); Hemoglobin 6.9 g/dl (12.0-16.0); Mean Corpuscular Hemoglobin 21.7 pg (25.0-34.0); Mean Corpuscular Volume 75.5 fL (80.0-100.0); Platelet Count 66 K/uL (130-400); RDW Standard Deviation 68.5 fL (36.4-46.3); Red Blood Count 3.18 M/uL (4.20-5.40); White Blood Count 6.57 K/ul (4.8-10.8)
[2025-03-19] MEDS: POTASSIUM CHLORIDE CRTAB 20 MEQ TABCR PO SCH (09:06)
[2025-03-19] MEDS: FUROSEMIDE INJ 20 MG/2 ML VIAL IV SCH (09:07)
[2025-03-19] MEDS: MAGNESIUM OXIDE 400 MG TAB PO SCH (09:07)
--- NOTE | 2025-03-19 09:07 | Ultrasound Report ---
US abdomen complete CLINICAL HISTORY: volume overload; cirrhosis?? COMPARISON STUDY: No previous studies for comparison. FINDINGS: This exam is mildly compromised by suboptimal penetration. Liver is unremarkable by sonogra phy. There are no hepatic lesions. Liver morphology is normal. There is 4 cm gallstone within the gal lbladder. There is no gallbladder wall thickening. No sonographic Harley sign was elicited. Size of t he spleen is normal. The pancreas is partially obscured but visualized portions are unremarkable. Devante iber of the abdominal aorta is normal. IVC is patent. There is no hydronephrosis. The right kidney me asures 11.2 cm in maximal dimension and the left measures 12.8 cm. There is a parapelvic cyst within the inferior left renal pelvis. Size of the spleen is normal. There is no ascites. IMPRESSION: 1. Unremarkable sonographic appearance of the liver. 2. Cholelithiasis. No evidence for acute cholecystitis. 3. No biliary ductal dilatation. ACT 112: Negative or not required by law. Electronically signed by: Riley Cuello M.D. 03/19/2025 9:05 AM
--- NOTE | 2025-03-19 09:29 | Gastroenterology Progress Note ---
Date of Service March 19, 2025 Assessment & Plan (1) Iron deficiency anemia: Plan: 80 year old female with history of Graves Disease s/p radioactive iodine treatment, arthritis w/ chronic pain, lumbar DDD, and HTN admitted through the ED w/ symptomatic anemia, report of heme positive stools w/ HGB 5.1 s/p 2 units w/ HGB 7.2 this AM. EGD/Colonoscopy was planned for 03/19 but postponed by primary team to continue to medically optimize. Will plan for EGD/Colon on 03/22. If medically optimized, please arrange clear liquid diet 03/21 and 4Lgolytely to start around 1700 on 03/21 then keep NPO in anticipation for endoscopic intervention Saturday. Trend H&H. Transfuse PRN per primary service. Monitor and document output. Continue IV PPI. I spent a total of 40 minutes on the date of service in review of patient's record, and previously obtained information in person and appropriate medical visit, discussion and education of plan, with patient and/or caregiver, placing orders for tests/referral/procedures as medically necessary and documentation of pertinent clinical information in patient's medical records for their visit today. Admission and Anticipated Discharge Date Admission Date: March 17, 2025 Supervising Physician Co-Signing Physician Notes I personally saw and examined the patient. I have reviewed the chart and agree with the documentation provided by the STEAM FITTER SUPERVISOR including discussion about the assessment, treatment and plan. Briefly, 80 year old female with history of Graves Disease s/p radioactive iodine treatment, arthritis w/ chronic pain, lumbar DDD, and HTN admitted through the ED w/ symptomatic anemia, report of heme positive stools w/ HGB 5.1 s/p 2 units w/ HGB 7.2 this AM. EGD/Colonoscopy was planned for 03/19 but postponed by primary team to continue to medically optimize. Will plan for EGD/Colon on 03/22. If medically optimized, please arrange clear liquid diet 03/21 and 4Lgolytely to start around 1700 on 03/21 then keep NPO in anticipation for endoscopic intervention Saturday. Trend H&H. Transfuse PRN per primary service. Monitor and document output. Continue IV PPI bid. Plan for double on Saturday, she is on schedule. Subjective EGD/Colonoscopy today was canceled by primary service, request to continue to medically optimize due to volume overload, PNA. This AM she denies any abd pain. She did have a BM last evening that was dark brown. HGB this AM 6.9. Review of Systems Review of Systems: All other findings negative except as noted in HPI. Physical Exam Constitutional: WD/WN, vitals as above Gastrointestinal (Abdomen): normal bowel sounds, soft, nontender, no hepatosplenomegaly Skin: no rashes, warm and dry Results & Data Results & Data Vital Signs (Past 12 Hours) Vital Signs Temp Pulse Pulse Resp BP BP Pulse Ox 03/19/25 07:52 98.1 F 84 19 151/71 H 91 03/19/25 04:00 97.9 F 85 20 148/79 H 91 03/18/25 23:23 98.4 F 90 18 159/82 H 90 03/18/25 21:59 82 O2 Del Method 03/19/25 07:52 Room Air 03/19/25 04:00 Room Air 03/18/25 23:23 Room Air 03/18/25 21:59 Laboratory Results 03/19/25 03/18/25 Range/Units 07:29 17:42 WBC 6.57 (4.8-10.8) K/ul RBC 3.18 L (4.20-5.40) M/uL Hgb 6.9 L* 7.5 L (12.0-16.0) g/dl Hct 24.0 L 26.1 L (37.0-47.0) % MCV 75.5 L (80.0-100.0) fL MCH 21.7 L (25.0-34.0) pg MCHC 28.8 L (32.0-36.0) g/dL RDW Std Deviation 68.5 H (36.4-46.3) fL RDW Coeff of Malia 26.2 H (11.5-14.5) % Plt Count 66 L (130-400) K/uL Sodium 140 (136-145) mmol/L Potassium 3.3 L (3.5-5.1) mmol/L Chloride 104 (98-107) mmol/L Carbon Dioxide 30 (21-32) mmol/L Anion Gap 6 (3-11) BUN 4 L (6-23) mg/dl Creatinine 0.35 L (0.6-1.2) mg/dl Est Cr Clr Drug Dosing 112.6 ml/min eGFR 101.99 BUN/Creatinine Ratio 11.4 (10-20) Glucose 97 (70-99(Fasting)) mg/dl Calcium 7.9 L (8.6-10.3) mg/dl Magnesium 1.8 (1.7-2.4) mg/dl PG Care Time/CCT Total # of Minutes Spent Total Time Spent with Patient: Total time spent is greater than 50% in coordination of care (as documented) at patient's floor/unit and/or counseling patient: Coding Level of Care Code 16118 SUB INP/OBS CARE 2/35MIN Diagnoses Iron deficiency anemia D50.9
[2025-03-19] MEDS ORDERED: SODIUM CHLORIDE 0.9% 100 ML IV PRN (10:13)
[2025-03-19] MEDS: ACETAMINOPHEN 500 MG TAB PO ONE (11:45)
--- NOTE | 2025-03-19 20:12 | Hospitalist Progress Note ---
Date of Service March 19, 2025 Assessment & Plan (1) Iron deficiency anemia: (2) Heme positive stool: (3) Acute blood loss anemia: (4) Volume overload: (5) HTN (hypertension): (6) Hypothyroidism: (7) Hypokalemia: (8) Hypomagnesemia: (9) Hyperglycemia: (10) Morbid obesity with BMI of 40.0-44.9, adult: (11) Thrombocytopenia: (12) RLL pneumonia: Plan Very pleasant 80yo female with history of Graves Disease s/p radioactive iodine treatment many years ago with resulting post-ablation hypothyroidism, chronic pain due to arthritis, lumbar DDD, and ?HTN presented with several days of worsening shortness of breath (at rest, with activity, and nocturnally), severe edema of both legs, swelling of her abdomen, fatigue & weakness, poor appetite, "dark" stools for 2-3 days, lesions of her right tongue, and several days of cough. #severe iron deficiency anemia // suspected acute [or acute on chronic] blood loss anemia // heme + stool - -patient had been taking high-dose motrin along with daily aspirin at home chronically; at risk of PUD vs gastritis vs other -s/p 2 units PRBCs since admission with improved H/H; no overt GI bleeding since admission -Hb today 6.9 -- will transfuse an additional unit of PRBCs today -recheck CBC in am -as previous remains hemodynamically stable -cont IV PPI drip -appreciate GI consultation -plan was for EGD/colonoscopy today but procedures canceled until 03/22 to allow medical optimization -consider IV iron while here (ferritin 12, transferrin sat 4%, etc) - plan 2-3 doses starting 03/20 #acute HFpEF / volume overload - -exam consistent with severe volume overload at admission -echo with preserved EF - 55-60% - thus, volume overload likely due to acute HFpEF (severe anemia may have caused high output CHF) -COVID/flu/RSV negative -no h/o liver disease, and abdominal u/s w/o cirrhosis -TSH wnl -u/a without proteinuria -albumin level wnl -lasix 20mg IV BID -BMP am #RLL pneumonia - -2 cxr's since admission with RLL infiltrate -Rx for CAP -- rocephin/doxy - day #2 today -plan 7 days of Rx #hypokalemia/hypomagnesemia - -suspect 2nd to poor oral intake over the last several days and now diuretic therapy -replace -cont K and mag supplementation #hypothyroidism - -TSH wnl in February 2025 -cont synthroid #?HTN - -BPs were markedly elevated in the setting of volume overload at time of admission despite her severe anemia -BPs have improved with diuresis -hold lisinopril for now -echo results noted #hyperglycemia - -a1c 6% c/w pre-DM --> 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 consumptive in setting of GI bleeding? other? -checked B12/folate levels --> both wnl -abdominal u/s today without enlarged spleen -platelet level today modestly improved -repeat CBC am -consider formal peripheral smear if platelets remain low -no signs of hemolysis to suggest TTP #minimal elevation in troponin - -level was 15 - scantly above normal range; myocardial demand ischemia in setting of severe anemia, volume overload, etc. #DVT proph - -chemical means contraindicated in light of suspected GI bleeding & heme+ stool -SCDs would be challenging given the severity of her LE edema -add SCDs once LE edema is improved; possibly tomorrow -ambulation #FEN - -BMP/mag in am -advance diet to full liquids -no IV fluids at this time due to volume overload updated pt's daughter Purnima by phone this evening questions answered Admission and Anticipated Discharge Date Admission Date: March 17, 2025 Subjective patient reports mild improvement in her breathing feels very tired/weak no abd pain no emesis is hungry and asks for diet advancement last stool - brown; no yvonne melena still with cough and chest congestion tele - NSR, occasional run of accelerated junctional rhythm? Review of Systems Review of Systems: gen - no fevers or chills cv - no chest pain pulm - no wheezing, minimal dyspnea at rest (mainly with exertion) GI - no hematemesis, no vomiting Physical Exam Physical Exam: gen - lying in bed, looks weak - NAD; restricted affect/depressed HENT - MMM neck - JVD+ still present CV - 2-3/6 systolic murmur LSB; RRR, s1 s2 lungs - b/l basilar rales - R>L - but improved today; no wheeze, no increased work of breathing abd - soft, distension improved, NT, no HSM, BS+ ext - 1-2+ b/l from feet to the knees; thigh edema resolved vascular - pulses b/l feet 2+ Results & Data Results & Data Vital Signs (Past 12 Hours) Vital Signs Temp Pulse Pulse Resp BP BP BP 03/19/25 19:20 36.6 C 82 20 157/76 H 03/19/25 15:28 36.8 C 81 19 145/81 H 03/19/25 15:18 36.6 C 85 14 149/82 H 03/19/25 14:21 36.5 C 78 16 144/79 H 03/19/25 14:20 36.4 C L 78 16 144/79 H 03/19/25 13:21 36.6 C 82 18 150/78 H 03/19/25 12:51 36.6 C 78 15 140/67 03/19/25 12:50 36.5 C 82 16 155/74 H 03/19/25 12:20 36.4 C L 83 16 156/78 H 03/19/25 11:28 36.5 C 79 20 130/63 03/19/25 09:46 Pulse Ox O2 Del Method 03/19/25 19:20 93 Room Air 03/19/25 15:28 94 Room Air 03/19/25 15:18 95 03/19/25 14:21 91 03/19/25 14:20 91 03/19/25 13:21 95 03/19/25 12:51 94 03/19/25 12:50 95 03/19/25 12:20 96 03/19/25 11:28 92 Room Air 03/19/25 09:46 Room Air Laboratory Results Laboratory Results - last 24 hr 03/17/25 03/19/25 17:15 07:29 WBC 6.57 RBC 3.18 L Hgb 6.9 L* Hct 24.0 L MCV 75.5 L MCH 21.7 L MCHC 28.8 L RDW Std Deviation 68.5 H RDW Coeff of Malia 26.2 H Plt Count 66 L Sodium 140 Potassium 3.3 L Chloride 104 Carbon Dioxide 30 Anion Gap 6 BUN 4 L Creatinine 0.35 L Est Cr Clr Drug Dosing 112.6 eGFR 101.99 BUN/Creatinine Ratio 11.4 Glucose 97 Calcium 7.9 L Magnesium 1.8 Blood Type O Positive Antibody Screen NEGATIVE Crossmatch See Detail PG Care Time/CCT Total # of Minutes Spent Total Time Spent with Patient: Total time spent is greater than 50% in coordination of care (as documented) at patient's floor/unit and/or counseling patient: Coding Level of Care Code 67412 SUB INP/OBS CARE 3/50MIN Diagnoses Iron deficiency anemia D50.9 Heme positive stool R19.5 Acute blood loss anemia D62 Volume overload E87.70 Hypervolemia type: unspecified HTN (hypertension) I10 Hypertension type: essential hypertension Hypothyroidism E03.9 Hypokalemia E87.6 Hypomagnesemia E83.42 Hyperglycemia R73.9 Morbid obesity with BMI of 40.0-44.9, adult E66.01; Z68.41 Thrombocytopenia D69.6 RLL pneumonia J18.9 (4) Volume overload Hypervolemia type: unspecified Qualified Code(s): E87.70 - Fluid overload, unspecified (5) HTN (hypertension) Hypertension type: essential hypertension Qualified Code(s): I10 - Essential (primary) hypertension
--- NOTE | 2025-03-20 06:28 | Electrocardiogram Report ---
Test Reason : Blood Pressure : */* mmHG Vent. Rate : 81 BPM Atrial Rate : 81 BPM P-R Int : 184 ms QRS Dur : 144 ms QT Int : 404 ms P-R-T Axes : 73 93 8 degrees QTcB Int : 469 ms Normal sinus rhythm Right bundle branch block Abnormal ECG When compared with ECG of 24-Nov-2020 12:48, Right bundle branch block is now Present Confirmed by Cuate Nicholas ([id number]) on 03/20/2025 6:27:43 AM Referred By: REFERRED SELF Confirmed By: Cuate Nicholas
[2025-03-20 06:40] LABS: Hematocrit (blood only) 27.9 % (37.0-47.0); Hemoglobin 8.5 g/dl (12.0-16.0); Mean Corpuscular Hemoglobin 23.1 pg (25.0-34.0); Mean Corpuscular Volume 75.8 fL (80.0-100.0); Platelet Count 101 K/uL (130-400); RDW Standard Deviation 67.1 fL (36.4-46.3); Red Blood Count 3.68 M/uL (4.20-5.40); White Blood Count 7.78 K/ul (4.8-10.8)
[2025-03-20 06:51] LABS: Anion Gap 4.0 (3-11); Blood Urea Nitrogen 4.0 mg/dl (6-23); Calcium 8.0 mg/dl (8.6-10.3); Carbon Dioxide 33.0 mmol/L (21-32); Chloride 102.0 mmol/L (98-107); Creatinine Clr Calc Pharmacy 117.9 ml/min; Glucose 97.0 mg/dl (70-99(Fasting)); Magnesium 1.7 mg/dl (1.7-2.4); Potassium 3.2 mmol/L (3.5-5.1); Sodium 139.0 mmol/L (136-145)
[2025-03-20] MEDS: POTASSIUM CHLORIDE / WTR 10 MEQ/100 ML PLCT IV SCH (09:06)
[2025-03-20] MEDS: BENZONATATE 100 MG CAPSULE PO SCH (09:06)
--- NOTE | 2025-03-20 09:52 | XRay Report ---
Clinical History: Dyspnea Technique: A frontal view of the chest was obtained Findings: There is worsened right lower lobe infiltrate, concerning for pneumonia. The heart is mildly enlarged. No pleural effusion or pneumothorax is seen. There is no definite pulmonary nodule. There is a left glenohumeral arthroplasty Impression: 1. Suspected right lower lobe pneumonia 2. Mild cardiomegaly ACT 112: Positive. There are findings on this exam that require communication between the performing entity and the patient following Patient Test Result Information Act ([place] ACT 112) guidelines. Electronically signed by Danny Lobato 03-20-2025 09:52 AM
--- NOTE | 2025-03-20 16:13 | Hospitalist Progress Note ---
Date of Service March 20, 2025 Assessment & Plan (1) Iron deficiency anemia: (2) Heme positive stool: (3) Acute blood loss anemia: (4) Volume overload: (5) HTN (hypertension): (6) Hypothyroidism: (7) Hypokalemia: (8) Hypomagnesemia: (9) Hyperglycemia: (10) Morbid obesity with BMI of 40.0-44.9, adult: (11) Thrombocytopenia: (12) RLL pneumonia: (13) Right foot pain: (14) Finger pain, left: Plan 80yo female with history of Graves Disease s/p radioactive iodine treatment many years ago with resulting post-ablation hypothyroidism, chronic pain due to arthritis, lumbar DDD, and ?HTN presented with several days of worsening shortness of breath (at rest, with activity, and nocturnally) and cough, severe edema of both legs, swelling of her abdomen, fatigue & weakness, poor appetite, "dark" stools for 2-3 days, lesions of her right tongue. #severe iron deficiency anemia // suspected acute [or acute on chronic] blood loss anemia // heme + stool - -patient had been taking high-dose motrin along with daily aspirin at home chronically; at risk of PUD vs gastritis vs other -s/p 3 units PRBCs since admission with improved H/H; no overt GI bleeding since admission -recheck CBC in am -remains hemodynamically stable -cont IV PPI drip -appreciate GI consultation -plan was for EGD/colonoscopy on 03/19 but procedures canceled until 03/22 to allow medical optimization (Rx of RLL pneumonia, Rx of volume overload, etc) -consider IV iron while here (ferritin 12, transferrin sat 4%, etc) - plan 2-3 doses - defer today due to pneumonia -EGD/colonoscopy on 03/22 -- will need to change diet back to clears on 03/21, and then start GoLytely prep Saturday afternoon #acute HFpEF / volume overload - -exam consistent with severe volume overload at admission -echo with preserved EF - 55-60% - thus, volume overload likely due to acute HFpEF (severe anemia may have caused high output CHF) -COVID/flu/RSV negative -no h/o liver disease, and abdominal u/s w/o cirrhosis -TSH wnl -u/a without proteinuria -albumin level wnl -cont lasix 20mg IV BID; 8+ liters negative since admission w -BMP am -mag am #RLL pneumonia - -3 cxr's since admission with RLL infiltrate (ordered cxr today due to c/o dyspnea) -Rx for CAP -- rocephin/doxy - day #3 today -plan 7 days of Rx -cough - tessalon TID -wheeze on right - duoneb x 1; if helpful consider ongoing bronchodilators #hypokalemia/hypomagnesemia - -suspect 2nd to poor oral intake leading up to admission & now diuretic therapy -cont K and mag supplementation -BMP in am, mag in am #hypothyroidism - -TSH wnl in February 2025 -cont synthroid #?HTN - -BPs were markedly elevated in the setting of volume overload at time of admission despite her severe anemia -BPs have improved with diuresis -hold lisinopril for now but consider resuming tomorrow -echo results noted #hyperglycemia - -a1c 6% c/w pre-DM --> will associate professor of counseling patient #thrombocytopenia - -etiology? consumptive in setting of GI bleeding? other? -checked B12/folate levels --> both wnl -abdominal u/s without enlarged spleen -platelet level continues to improve; now >100 -repeat CBC am -consider formal peripheral smear if platelets remain low -no signs of hemolysis to suggest TTP #minimal elevation in troponin - -level was 15 - scantly above normal range; myocardial demand ischemia in setting of severe anemia, volume overload, etc. -repeat level today wnl -EKG today w/o ischemic changes #DVT proph - -chemical means contraindicated in light of suspected GI bleeding & heme+ stool -SCDs would be challenging given the severity of her LE edema -add SCDs once LE edema is improved; possibly tomorrow -ambulation #FEN - -BMP/mag in am -advance diet to full liquids today -no IV fluids at this time due to volume overload -back to clears on Saturday for colonoscopy prep #right mid-foot pain - -present off/on for weeks -sees local clinical support specialist for this -does not examine like a mid-foot gout attack -checked x-rays --> no fractures #left 2nd finger, DIP synovitis - -suspect acute gout -check uric acid level in am -x-rays with OA changes and ?crystal deposition disease -solumedrol 20mg IV x 1 -steroids will help wheezing as well -re eval tomorrow #dysthymia/mood disorder - -patient has admitted to low-grade depression for some time -offered health therapist & behavioral health consults but she deferred such -consider Rx of depression -B12 level robust -recent TSH level wnl updated pt's daughter Purnima by phone 03/19 needs PT/OT Admission and Anticipated Discharge Date Admission Date: March 17, 2025 Subjective patient feels exhausted today only slept about 1 hour last night-- just could not sleep she continues with cough, chest congestion tolerating full liquids no abd pain or N/V she is hungry no chest pain Review of Systems Review of Systems: gen - no fevers or chills; +fatigue CV - no orthopnea; edema of legs improved pulm - ongoing cough/congestion/wheeze/mild dyspnea; can't tell me if any MADDEN - hasn't really gotten out of bed musculo - c/o right foot pain and left 2nd finger pain; just noticed the left 2nd finger pain today; right foot pain - weeks; mid-foot; has seen local clinical support specialist, told she had "collapsed bones" and advised to use a walking boot with ambulation Physical Exam Physical Exam: gen - lying in bed, looks weak and tired - but NAD; restricted affect/depressed HENT - MMM, ulcers on tongue improved neck - JVD+ CV - 2-3/6 systolic murmur LSB; RRR, s1 s2 lungs - b/l basilar rales; focal wheezes on right, none on left, no increased work of breathing abd - soft, distension resolved, NT, no HSM, BS+ ext - 1+ b/l from feet to the knees; thigh edema resolved vascular - pulses b/l feet 2+ musculo - right foot - no synovitis of the mid-foot or first MTP joint; bunion deformity first toe; no reproducible tenderness of right foot to palpation or with passive ROM of any toe or the ankle itself left hand - OA changes most fingers; left 2nd DIP joint - warm, tender to touch, erythematous/swollen Results & Data Results & Data Vital Signs (Past 12 Hours) Vital Signs Temp Pulse Resp BP Pulse Ox O2 Del Method 03/20/25 11:10 36.8 C 87 82 H 118/73 97 Room Air 03/20/25 09:54 Room Air 03/20/25 08:00 36.8 C 75 86 H 170/73 H 96 Room Air Laboratory Results Laboratory Results - last 24 hr 03/20/25 06:04 WBC 7.78 RBC 3.68 L Hgb 8.5 L Hct 27.9 L MCV 75.8 L MCH 23.1 L MCHC 30.5 L RDW Std Deviation 67.1 H RDW Coeff of Malia 25.5 H Plt Count 101 L D Sodium 139 Potassium 3.2 L Chloride 102 Carbon Dioxide 33 H Anion Gap 4 BUN 4 L Creatinine 0.33 L Est Cr Clr Drug Dosing 117.9 eGFR 103.44 BUN/Creatinine Ratio 12.1 Glucose 97 Calcium 8.0 L Magnesium 1.7 Troponin I High Sens 12.5 Diagnostic Findings Chest X-Ray 03/20/25 08:41 Clinical History: Dyspnea Technique: A frontal view of the chest was obtained Findings: There is worsened right lower lobe infiltrate, concerning for pneumonia. The heart is mildly enlarged. No pleural effusion or pneumothorax is seen. There is no definite pulmonary nodule. There is a left glenohumeral arthroplasty Impression: 1. Suspected right lower lobe pneumonia 2. Mild cardiomegaly ACT 112: Positive. There are findings on this exam that require communication between the performing entity and the patient following Patient Test Result Information Act ([place] ACT 112) guidelines. Electronically signed by Danny Lobato 03-20-2025 09:52 AM Foot X-Ray 03/20/25 16:09 Exam(s): XR RIGHT FOOT, 2 views EXAM: XR Right Foot, 2 Views CLINICAL HISTORY: right mid-foot pain. TECHNIQUE: Frontal and lateral views of the right foot. COMPARISON: 02/22/2024 FINDINGS: Bones/joints: Prominent plantar calcaneal bone spur. Redemonstrated hallux valgus deformity of the 1st digit metatarsal phalangeal joint. Redemonstrated severe osteoarthritic changes in the midfoot involving the tarsometatarsal joints of the 2nd through 5th digit, unchanged. No acute fracture. No dislocation. Soft tissues: Soft tissue swelling overlying the anterior dorsum of the foot. No radiopaque foreign body. IMPRESSION: Soft tissue swelling of the anterior dorsum of the foot. Redemonstrated unchanged multifocal degenerative changes. Plantar calcaneal bone spur. Electronically signed by: Jose M Bull M.D. 03/20/25 23:56 PM Hand X-Ray 03/20/25 16:09 Exam(s): XR LEFT HAND, 2 views EXAM: XR Left Hand, 2 Views CLINICAL HISTORY: L 2nd DIP joint redness/swelling; ?gout/CPPD?. TECHNIQUE: Frontal and lateral views of the left hand. COMPARISON: No relevant prior studies available. FINDINGS: Bones/joints: No acute fracture. Marked degenerative changes with dislocation/subluxation and hypertrophic changes of the 1st digit carpometacarpal joint. Adjacent soft tissue calcification. Joint space narrowing with hypertrophic osteophytes at the distal interphalangeal joint of the 2nd digit. No erosions. Ill-defined calcifications just proximal to the 2nd digit D IP joint. Bones are osteopenic. Soft tissues: Unremarkable. No radiopaque foreign body. IMPRESSION: Chronic appearing dislocation/subluxation of the 1st digit carpometacarpal joint with hypertrophic changes/osteophytes. 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 No bone erosions or coarse soft tissue calcifications. Electronically signed by: Jose M Bull M.D. 03/20/25 23:54 PM PG Care Time/CCT Total # of Minutes Spent Total Time Spent with Patient: Total time spent is greater than 50% in coordination of care (as documented) at patient's floor/unit and/or counseling patient: Coding Level of Care Code 70043 SUB INP/OBS CARE 3/50MIN Diagnoses Iron deficiency anemia D50.9 Heme positive stool R19.5 Acute blood loss anemia D62 Volume overload E87.70 Hypervolemia type: unspecified HTN (hypertension) I10 Hypertension type: essential hypertension Hypothyroidism E03.9 Hypokalemia E87.6 Hypomagnesemia E83.42 Hyperglycemia R73.9 Morbid obesity with BMI of 40.0-44.9, adult E66.01; Z68.41 Thrombocytopenia D69.6 RLL pneumonia J18.9 Right foot pain M79.671 Finger pain, left M79.645 (4) Volume overload Hypervolemia type: unspecified Qualified Code(s): E87.70 - Fluid overload, unspecified (5) HTN (hypertension) Hypertension type: essential hypertension Qualified Code(s): I10 - Essential (primary) hypertension
[2025-03-20] MEDS: ALBUT/IPRATROP 3MG/0.5MG NEB 3 ML VIAL NEB STA (16:56)
[2025-03-20] MEDS: PRAMIPEXOLE DIHYDROCHLO 0.25 MG TAB PO SCH (20:01)
[2025-03-20] MEDS: MELATONIN 3 MG TAB PO PRN (21:56)
--- NOTE | 2025-03-20 23:55 | XRay Report ---
Exam(s): XR LEFT HAND, 2 views EXAM: XR Left Hand, 2 Views CLINICAL HISTORY: L 2nd DIP joint redness/swelling; ?gout/CPPD?. TECHNIQUE: Frontal and lateral views of the left hand. COMPARISON: No relevant prior studies available. FINDINGS: Bones/joints: No acute fracture. Marked degenerative changes with dislocation/subluxation and hypertrophic changes of the 1st digit carpometacarpal joint. Adjacent soft tissue calcification. Joint space narrowing with hypertrophic osteophytes at the distal interphalangeal joint of the 2nd digit. No erosions. Ill-defined calcifications just proximal to the 2nd digit D IP joint. Bones are osteopenic. Soft tissues: Unremarkable. No radiopaque foreign body. IMPRESSION: Chronic appearing dislocation/subluxation of the 1st digit carpometacarpal joint with hypertrophic changes/osteophytes. 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 No bone erosions or coarse soft tissue calcifications. Electronically signed by: Jose M Bull M.D. 03/20/25 23:54 PM
--- NOTE | 2025-03-20 23:56 | XRay Report ---
Exam(s): XR RIGHT FOOT, 2 views EXAM: XR Right Foot, 2 Views CLINICAL HISTORY: right mid-foot pain. TECHNIQUE: Frontal and lateral views of the right foot. COMPARISON: 02/22/2024 FINDINGS: Bones/joints: Prominent plantar calcaneal bone spur. Redemonstrated hallux valgus deformity of the 1st digit metatarsal phalangeal joint. Redemonstrated severe osteoarthritic changes in the midfoot involving the tarsometatarsal joints of the 2nd through 5th digit, unchanged. No acute fracture. No dislocation. Soft tissues: Soft tissue swelling overlying the anterior dorsum of the foot. No radiopaque foreign body. IMPRESSION: Soft tissue swelling of the anterior dorsum of the foot. Redemonstrated unchanged multifocal degenerative changes. Plantar calcaneal bone spur. Electronically signed by: Jose M Bull M.D. 03/20/25 23:56 PM
[2025-03-21 06:58] LABS: Hematocrit (blood only) 30.1 % (37.0-47.0); Hemoglobin 8.5 g/dl (12.0-16.0); Mean Corpuscular Hemoglobin 22.1 pg (25.0-34.0); Mean Corpuscular Volume 78.4 fL (80.0-100.0); Platelet Count 171 K/uL (130-400); RDW Standard Deviation 71.7 fL (36.4-46.3); Red Blood Count 3.84 M/uL (4.20-5.40); White Blood Count 9.28 K/ul (4.8-10.8)
[2025-03-21 07:34] LABS: Anion Gap 5.0 (3-11); Blood Urea Nitrogen 6.0 mg/dl (6-23); Calcium 8.6 mg/dl (8.6-10.3); Carbon Dioxide 32.0 mmol/L (21-32); Chloride 100.0 mmol/L (98-107); Creatinine Clr Calc Pharmacy 103.5 ml/min; Glucose 129.0 mg/dl (70-99(Fasting)); Magnesium 1.8 mg/dl (1.7-2.4); Potassium 4.1 mmol/L (3.5-5.1); Sodium 137.0 mmol/L (136-145); Uric Acid 5.6 mg/dl (2.6-7.2)
[2025-03-21] MEDS: POTASSIUM CHLORIDE CRTAB 20 MEQ TABCR PO SCH (09:18)
[2025-03-21] MEDS: IRON SUCROSE 300 MG in SODIUM CHLORIDE 0.9% 250 ML IV ONE (09:18)
--- NOTE | 2025-03-21 12:31 | Hospitalist Progress Note ---
Date of Service March 21, 2025 Assessment & Plan (1) Iron deficiency anemia: (2) Heme positive stool: (3) Acute blood loss anemia: (4) Volume overload: (5) HTN (hypertension): (6) Hypothyroidism: (7) Hypokalemia: (8) Hypomagnesemia: (9) Hyperglycemia: (10) Morbid obesity with BMI of 40.0-44.9, adult: (11) Thrombocytopenia: (12) RLL pneumonia: (13) Right foot pain: (14) Finger pain, left: Plan 80yo female with history of Graves Disease s/p radioactive iodine treatment many years ago with resulting post-ablation hypothyroidism, chronic pain due to arthritis, lumbar DDD, and ?HTN presented with several days of worsening shortness of breath (at rest, with activity, and nocturnally) and cough, severe edema of both legs, swelling of her abdomen, fatigue & weakness, poor appetite, "dark" stools for 2-3 days, lesions of her right tongue. #severe iron deficiency anemia // suspected acute [or acute on chronic] blood loss anemia // heme + stool - -patient had been taking high-dose motrin along with daily aspirin at home chronically; at risk of PUD vs gastritis vs other -s/p 3 units PRBCs since admission with improved H/H; no overt GI bleeding since admission -H/H again stable -cont IV PPI drip -appreciate GI consultation -plan was for EGD/colonoscopy on 03/19 but procedures canceled until 03/22 to allow medical optimization (Rx of RLL pneumonia, Rx of volume overload, etc) -consulted anesthesia to get their opinion about her readiness from anesthesia standpoint for procedures tomorrow -- anesthesia consult done and they feel she is satisfactory condition to undergo EGD/colon tomorrow -give venofer 300mg IV x 1 today for Fe def (ferritin 12, transferrin sat 4%, etc) -consider 2nd dose next 1-2 days -EGD/colonoscopy on 03/22 -- change diet back to clears and start GoLytely prep this afternoon; NPO after MN tonight #acute HFpEF / volume overload - -exam consistent with severe volume overload at admission -echo with preserved EF - 55-60% - thus, volume overload likely due to acute HF pEF (severe anemia may have caused high output CHF) -COVID/flu/RSV negative -no h/o liver disease, and abdominal u/s w/o cirrhosis -TSH wnl -u/a without proteinuria -albumin level wnl -cont lasix 20mg IV BID today, then place lasix on hold ; 10+ liters negative since admission -BMP am -mag am #RLL pneumonia - IMPROVED - -Rx for CAP -- rocephin/doxy - day #4 today -plan 7 days of Rx -cough - tessalon TID -wheeze on right - duoneb x 1 yesterday, but patient did not note any change in symptoms with such #hypokalemia/hypomagnesemia - -suspect 2nd to poor oral intake leading up to admission & now diuretic therapy -cont K and mag supplementation -both K/mag wnl today -BMP in am, mag in am #hypothyroidism - -TSH wnl in February 2025 -cont synthroid #?HTN - -BPs were markedly elevated in the setting of volume overload at time of admission despite her severe anemia -BPs have improved with diuresis but still not optimal -hold lisinopril for now but likely will need to resume soon -echo results noted #hyperglycemia - -a1c 6% c/w pre-DM --> will equal opportunity counselor patient #thrombocytopenia - -etiology? consumptive in setting of GI bleeding? other? -either way platelet level back to normal -checked B12/folate levels --> both wnl -abdominal u/s without enlarged spleen -repeat CBC am #minimal elevation in troponin - -level was 15 - scantly above normal range; myocardial demand ischemia in setting of severe anemia, volume overload, etc. -EKGs w/o ischemic changes #DVT proph - -chemical means contraindicated in light of suspected GI bleeding & heme+ stool #right mid-foot pain - -present off/on for weeks -sees local sweet pickle maker for this -does not examine like a mid-foot gout attack -checked x-rays --> no fractures -follow -she apparently has been using a walking boot at home; family should retrieve such and bring to hospital; she can WBAT in the boot #left 2nd finger, DIP synovitis - -suspect acute gout or CPPD (x-rays with possible CPPD) -uric acid level today noted -x-rays with OA changes and ?crystal deposition disease -solumedrol 20mg IV x 1 yesterday, and 10mg IV x 1 today -clinically improved -re eval tomorrow #dysthymia/mood disorder - -patient has admitted to low-grade depression for some time -offered director of managed care & behavioral health consults but she deferred such -consider Rx of depression -B12 level robust -recent TSH level wnl -affect more full today updated pt's daughter Purnima by phone 03/19 updated pt's daughter Purnima & patient's son at bedside today PT/OT evals done today -PT - likely can return home -OT - may need rehab will see how she progresses Admission and Anticipated Discharge Date Admission Date: March 17, 2025 Subjective patient feeling better today sat in chair for a decent amount of the morning tolerating diet without abd pain no melena energy is better dyspnea has improved cough better we discussed EGD/colonoscopy this am and willing to proceed with such 2nd visit to the bedside later in the evening -- pt's son & daughter present plan of care reviewed, questions thoroughly answered Review of Systems Review of Systems: gen - no fevers or chills cv - no chest pain, no orthopnea, edema markedly improved pulm - dyspnea improved musculo - left 2nd finger synovitis better; right mid-foot pain improved Physical Exam Physical Exam: gen - looks much better today, sitting at side of bed, NAD HENT - MMM neck - JVD resolved CV - 2-3/6 systolic murmur LSB; RRR, s1 s2 lungs - b/l basilar rales nearly resolved; previous focal wheezes on right resolved; no increased work of breathing abd - soft, ND, NT, no HSM, BS+ ext - trace edema shins b/l vascular - pulses b/l feet 2+ musculo - OA changes most fingers b/l hands; left 2nd DIP joint - synovitis IMPROVED psych - affect more full today Results & Data Results & Data Vital Signs (Past 12 Hours) Vital Signs Temp Pulse Resp BP Pulse Ox O2 Del Method 03/21/25 12:15 36.7 C 80 18 154/73 H 96 Room Air 03/21/25 09:38 Room Air 03/21/25 08:00 36.6 C 98 H 20 148/77 H 92 Room Air 03/21/25 03:34 36.4 C L 89 20 146/77 H 89 L Room Air Laboratory Results Laboratory Results - last 24 hr 03/21/25 05:58 WBC 9.28 RBC 3.84 L Hgb 8.5 L Hct 30.1 L MCV 78.4 L MCH 22.1 L MCHC 28.2 L RDW Std Deviation 71.7 H RDW Coeff of Malia 26.8 H Plt Count 171 D Absolute Nucleated RBC 0.02 Nucleated RBC % (auto) 0.2 Sodium 137 Potassium 4.1 D Chloride 100 Carbon Dioxide 32 Anion Gap 5 BUN 6 Creatinine 0.37 L Est Cr Clr Drug Dosing 103.5 eGFR 100.63 BUN/Creatinine Ratio 16.2 Glucose 129 H Uric Acid 5.6 Calcium 8.6 Magnesium 1.8 PG Care Time/CCT Total # of Minutes Spent Total Time Spent with Patient: Total time spent is greater than 50% in coordination of care (as documented) at patient's floor/unit and/or counseling patient: Coding Level of Care Code 69228 SUB INP/OBS CARE 3/50MIN Diagnoses Iron deficiency anemia D50.9 Heme positive stool R19.5 Acute blood loss anemia D62 Volume overload E87.70 Hypervolemia type: unspecified HTN (hypertension) I10 Hypertension type: essential hypertension Hypothyroidism E03.9 Hypokalemia E87.6 Hypomagnesemia E83.42 Hyperglycemia R73.9 Morbid obesity with BMI of 40.0-44.9, adult E66.01; Z68.41 Thrombocytopenia D69.6 RLL pneumonia J18.9 Right foot pain M79.671 Finger pain, left M79.645 (4) Volume overload Hypervolemia type: unspecified Qualified Code(s): E87.70 - Fluid overload, unspecified (5) HTN (hypertension) Hypertension type: essential hypertension Qualified Code(s): I10 - Essential (primary) hypertension
--- NOTE | 2025-03-21 15:43 | Anesthesiology Consultation ---
Date of Service March 21, 2025 Assessment & Plan Chart Review Chart Review: Acceptable Risk for Surgery Consults Requested none History Surgery Operation Date: 03/19/25 16:30 Proposed Procedures p Colonoscopy EGD Kathryn Peralta MD Operation Date: 03/22/25 16:30 Proposed Procedures p Colonoscopy EGD Dr. Patterson - Jose M Patterson MD Height/Weight Height: 4 ft 9 in Weight: 81.9 kg Allergies Allergy/AdvReac Type Severity Reaction Status Date / Time adhesive tape Allergy Intermediate tears skin Verified 03/17/25 18:36 Medications Home Medications Medication Instructions Recorded Confirmed Last Taken calcium 600 mg (as 1 cap PO BID 09/26/19 03/17/25 03/19/21 carbonate)-vitamin D3 5 mcg (200 unit) capsule (Calcium 600 + D(3)) levothyroxine 88 mcg tablet 88 mcg PO DAILYBB 09/26/19 03/17/25 03/19/21 multivitamin with minerals 1 tab PO QDL 09/26/19 03/17/25 03/19/21 acetaminophen 500 mg tablet 1,000 mg PO Q6 PRN Pain 11/24/20 03/17/25 03/19/21 aspirin 81 mg tablet,delayed 81 mg PO HS 11/24/20 03/17/25 03/19/21 release amoxicillin 500 mg tablet 2,000 mg (4 x 500 mg) PO ONCE #4 11/25/20 03/17/25 03/19/21 tabs diclofenac sodium 1 % topical gel 2 g topical QID PRN Pain 07/04/21 03/17/25 Unknown faricimab-svoa 6 mg/0.05 mL 6 mg intravitreal UD 03/17/25 03/17/25 Unknown intravitreal syringe (Vabysmo) ibandronate 150 mg tablet 150 mg PO MO 03/17/25 03/17/25 Unknown ibuprofen 200 mg tablet (Advil) 800 mg PO Q6 PRN Pain 03/17/25 03/17/25 Unknown lisinopril 2.5 mg tablet 2.5 mg PO DAILY 03/17/25 03/17/25 Unknown Active Medications Generic Name Dose Route Start Last Admin Trade Name Freq PRN Reason Stop Dose Admin Acetaminophen 1,000 mg 03/17/25 22:37 03/20/25 21:56 Acetaminophen 500 Mg Tab PO 04/16/25 22:36 1,000 mg Q6 PRN Administration Pain Benzonatate 200 mg 03/20/25 09:00 03/21/25 08:20 Benzonatate 100 Mg Capsule PO 04/19/25 08:59 200 mg TID CHAN Administration Furosemide 20 mg 03/19/25 09:00 03/21/25 08:19 Furosemide Inj 20 Mg/2 Ml Vial IV 04/18/25 08:59 20 mg BID17 CHAN Administration Pantoprazole Sodium 40 mg/ 100 mls @ 20 mls/hr 03/17/25 17:30 03/21/25 13:30 Dextrose IV 04/16/25 17:29 8 mg/hr Q5H CHAN 20 mls/hr Administration 8 MG/HR Ceftriaxone Sodium 2,000 mg in 50 mls @ 100 mls/hr 03/18/25 20:00 03/20/25 20:46 Rocephin IV 03/23/25 19:59 Infused Q24H CHAN Infusion Doxycycline Hyclate 100 mg/ 100 mls @ 50 mls/hr 03/18/25 20:00 03/21/25 13:31 Dextrose IV 03/23/25 19:59 Infused Q12H CHAN Infusion Levothyroxine Sodium 88 mcg 03/18/25 06:30 03/21/25 06:25 Levothyroxine Sodium 88 Mcg Tablet PO 04/17/25 06:29 88 mcg DAILYBB CHAN Administration Magnesium Oxide 400 mg 03/19/25 09:00 03/21/25 08:20 Magnesium Oxide 400 Mg Tab PO 04/18/25 08:59 400 mg BID CHAN Administration Melatonin 6 mg 03/20/25 19:59 03/20/25 21:56 Melatonin 3 Mg Tab PO 04/18/25 01:32 6 mg HS PRN Administration Sleep Multi-Ingredient Mouthwash/Gargle 5 ml 03/17/25 22:37 03/21/25 13:31 First - Mouthwash Blm 5 Ml Udp PO 04/16/25 22:36 Not Given QID CHAN Potassium Chloride 20 meq 03/21/25 09:00 03/21/25 09:18 Potassium Chloride Crtab 20 Meq Tabcr PO 04/20/25 08:59 20 meq BID CHAN Administration Pramipexole Dihydrochloride 0.25 mg 03/20/25 21:00 03/20/25 20:01 Pramipexole Dihydrochlo 0.25 Mg Tab PO 04/19/25 20:59 0.25 mg HS CHAN Administration Past Medical History Medical History HTN (hypertension) pt denies Hypothyroidism Stress fracture, right femur, initial encounter for fracture Fracture of femur left Osteoporosis Lumbar radiculopathy Lumbar spondylosis Spinal stenosis of lumbar region Vertebral compression fracture Severe T10, L4 Thoracic back pain Diffuse myofascial pain syndrome Stroke (~2008) R eye, ~15yrs ago. folllows with Dr Degroot ([facility]) with injections into the right eye every 6 weeks. Hx of fracture T11 compression fracture --> no surgical intervention, treated with rehab & physical therapy Degenerative disc disease Osteoarthritis Hx of Graves' disease radioactive iodine treatment Past Family History Family History Mother Leukemia Father Adopted due to patient being adopted -- father's medical history unknown Other No family history of adverse response to anesthesia Past Surgical History Surgical History Status post reverse total replacement of left shoulder (~01/2021) H/O wisdom tooth extraction H/O vein stripping bilateral History of open reduction and internal fixation (ORIF) procedure Left femur History of total right hip arthroplasty Social History Smoking Status: Never smoker Do You Dip or Chew Tobacco: No Hx Alcohol Use: No Hx Substance Use: No substance use type: does not use Physical Exam Vital Signs Last Vital Signs Temp 36.7 C 03/21/25 12:15 Pulse 80 03/21/25 12:15 Resp 18 03/21/25 12:15 BP 154/73 H 03/21/25 12:15 Pulse Ox 96 03/21/25 12:15 O2 Del Method Room Air 03/21/25 12:15 O2 Flow Rate 2 03/20/25 22:28 Testing Laboratory Results 03/21/25 05:58 03/21/25 05:58 PT 10.9 Seconds (9.0-12.0) 03/17/25 16:23 INR 1.0 (0.9-1.1) 03/17/25 16:23 APTT 25 Seconds (21-31) 03/17/25 16:23 Hemoglobin A1c 6.0 % (4.5-5.6) H 03/18/25 00:50 Urine Color Yellow 03/17/25 20:50 Urine Appearance Clear (Clear) 03/17/25 20:50 Urine pH 7.0 (4.5-7.5) 03/17/25 20:50 Ur Specific [place] 1.008 (1.000-1.030) 03/17/25 20:50 Urine Protein Negative (Negative) 03/17/25 20:50 Urine Glucose (UA) Negative (Negative) 03/17/25 20:50 Urine Ketones Negative (Negative) 03/17/25 20:50 Urine Nitrite Negative (Negative) 03/17/25 20:50 Ur Leukocyte Esterase Negative (Negative) 03/17/25 20:50 Blood Type O Positive 03/17/25 17:15 Antibody Screen NEGATIVE 03/17/25 17:15
[2025-03-21] MEDS: LAVAGE SOLUTION 4000ML PO SCH (18:08)
[2025-03-22 06:15] LABS: Hematocrit (blood only) 29.9 % (37.0-47.0); Hemoglobin 8.6 g/dl (12.0-16.0); Mean Corpuscular Hemoglobin 22.6 pg (25.0-34.0); Mean Corpuscular Volume 78.5 fL (80.0-100.0); Platelet Count 255 K/uL (130-400); RDW Standard Deviation 72.3 fL (36.4-46.3); Red Blood Count 3.81 M/uL (4.20-5.40); White Blood Count 12.22 K/ul (4.8-10.8)
[2025-03-22 06:29] LABS: Anion Gap 4.0 (3-11); Blood Urea Nitrogen 7.0 mg/dl (6-23); Calcium 8.7 mg/dl (8.6-10.3); Carbon Dioxide 34.0 mmol/L (21-32); Chloride 102.0 mmol/L (98-107); Creatinine Clr Calc Pharmacy 102.3 ml/min; Glucose 90.0 mg/dl (70-99(Fasting)); Magnesium 1.6 mg/dl (1.7-2.4); Potassium 3.6 mmol/L (3.5-5.1); Sodium 140.0 mmol/L (136-145)
[2025-03-22] MEDS: MAGNESIUM SULFATE / D5W 1 GM/100 ML BAG IV SCH (08:23)
[2025-03-22] MEDS: IRON SUCROSE 300 MG in SODIUM CHLORIDE 0.9% 250 ML IV ONE (08:49)
--- NOTE | 2025-03-22 09:57 | History & Physical Bridge Note ---
Date of Service March 22, 2025 History & Physical Bridge Note I have examined the patient, reviewed the History & Physical and in the interval since the performance of the History & Physical I have noted the following changes of clinical significance: no changes noted. 80 year old female with history of Graves Disease s/p radioactive iodine treatment, arthritis w/ chronic pain, lumbar DDD, and HTN admitted through the ED w/ symptomatic anemia, report of heme positive stools w/ HGB 5.1. hgb 8.6 today. she finished half of her prep. she reports clear stools. no nausea, vomiting, dysphagia, abdominal pain, chest pain, or sob. - will plan to proceed with EGD and colonoscopy today.
--- NOTE | 2025-03-22 10:49 | Hospitalist Progress Note ---
Date of Service March 22, 2025 Assessment & Plan (1) Iron deficiency anemia: (2) Heme positive stool: (3) Acute blood loss anemia: (4) Volume overload: (5) HTN (hypertension): (6) Hypothyroidism: (7) Hypokalemia: (8) Hypomagnesemia: (9) Hyperglycemia: (10) Morbid obesity with BMI of 40.0-44.9, adult: (11) Thrombocytopenia: (12) RLL pneumonia: (13) Right foot pain: (14) Finger pain, left: Plan 80yo female with history of Graves Disease s/p radioactive iodine treatment many years ago with resulting post-ablation hypothyroidism, chronic pain due to arthritis, lumbar DDD, and ?HTN presented with several days of worsening shortness of breath (at rest, with activity, and nocturnally) and cough, severe edema of both legs, swelling of her abdomen, fatigue & weakness, poor appetite, "dark" stools for 2-3 days, lesions of her right tongue. #severe iron deficiency anemia // suspected acute [or acute on chronic] blood loss anemia // heme + stool - -s/p EGD & Colonoscopy today; mild gastritis only; no PUD; diverticular disease on colonoscopy; no active bleeding any location -outpatient capsule endoscopy?? -s/p 3 units PRBCs since admission with improved and stable H/H; no overt GI bleeding since admission -H/H again stable today -stop PPI drip, convert to PO PPI -allow regular diet -appreciate GI assistance -s/p venofer 300mg yesterday and again today -give 3rd dose tomorrow #acute HFpEF / volume overload - -exam consistent with severe volume overload at admission -echo with preserved EF - 55-60% - thus, volume overload likely due to acute HFpEF (severe anemia may have caused high output CHF) -COVID/flu/RSV negative -no h/o liver disease, and abdominal u/s w/o cirrhosis -TSH wnl -u/a without proteinuria -albumin level wnl -10-11+ liters negative since admission -examines euvolemic today -IV lasix stopped -BMP am -mag am #RLL pneumonia - IMPROVED/clinically resolving - -Rx for CAP -- rocephin/doxy - day #5 today -plan 7 days of Rx; can change to PO abx tomorrow (levaquin 750mg daily x 2 days) -cough - tessalon TID #hypokalemia/hypomagnesemia - -suspect 2nd to poor oral intake leading up to admission & diuretic therapy wh ile here -resolved -cont K and mag supplementation -BMP in am, mag in am #hypothyroidism - -TSH wnl in February 2025 -cont synthroid #?HTN - -BPs were markedly elevated in the setting of volume overload at time of admission despite her severe anemia -BPs have improved with diuresis -cont to hold lisinopril #hyperglycemia - -a1c 6% c/w pre-DM --> will compliance counsel patient #thrombocytopenia - -etiology? consumptive in setting of GI bleeding? other? -either way platelet level back to normal -checked B12/folate levels --> both wnl -abdominal u/s without enlarged spleen #minimal elevation in troponin - -level was 15 - scantly above normal range; myocardial demand ischemia in setting of severe anemia, volume overload, etc. -EKGs w/o ischemic changes #DVT proph - -chemical means contraindicated in light of suspected GI bleeding & heme+ stool #right mid-foot pain - -present off/on for weeks -saw local project leader for this -does not examine like a mid-foot gout attack -checked x-rays --> no fractures -follow -she apparently has been using a walking boot at home; family should retrieve such and bring to hospital; she can WBAT in the boot #left 2nd finger, DIP synovitis - -suspect acute gout or CPPD (x-rays with possible CPPD) -uric acid level today noted -x-rays with OA changes and ?crystal deposition disease -solumedrol 20mg IV x 1, then 10mg IV x 1 yesterday; will give 10mg again today -improved nicely #dysthymia/mood disorder - -patient has admitted to low-grade depression for some time -offered residency director & behavioral health consults but she deferred such -consider Rx of depression -B12 level robust -recent TSH level wnl #OA of multiple locations - -takes tylenol & motrin at home -tylenol not effective -would advise against motrin in light of heme+ stool, gastritis, etc. -norco prn ordered updated pt's daughter Purnima by phone 03/19 and again today, 03/22 updated pt's daughter Purnima & patient's son at bedside 03/21 PT/OT evals done -PT - likely can return home per their note -OT - may need rehab will see how she progresses Admission and Anticipated Discharge Date Admission Date: March 17, 2025 Subjective tele overnight wnl saw patient pre-EGD/colonoscopy her only complaints were her chronic arthritic issues -back, hips, etc. left 2nd finger DIP feels much better no dyspnea no dyspnea on exertion completed the prep overnight - she is very tired from the process last stool was clear no abd pain no N/V anxious to get the scopes done Review of Systems Review of Systems: gen - no fevers or chills cv - no cp GI - no brbpr or melena pulm - mild cough only Physical Exam Physical Exam: gen - looks well, NAD HENT - MMM neck - no JVD CV - 2-3/6 systolic murmur LSB; RRR, s1 s2 lungs - airation R base MUCH improved; no rales R base; scant rales L base; no wheeze; good airation abd - soft, ND, NT, no HSM, BS+ ext - trace edema shins b/l vascular - pulses b/l feet 2+ musculo - OA changes most fingers b/l hands; left 2nd DIP joint - synovitis I MPROVED/resolved psych - a/o x 3 Results & Data Results & Data Vital Signs (Past 12 Hours) Vital Signs Temp Pulse Resp BP Pulse Ox O2 Del Method 03/22/25 07:55 36.5 C 74 18 161/77 H 97 Room Air 03/22/25 04:10 36.4 C L 81 18 158/72 H 90 Room Air 03/22/25 02:20 Room Air 03/22/25 01:10 36.7 C 87 18 149/69 H 90 Room Air Laboratory Results Laboratory Results - last 24 hr 03/22/25 05:43 WBC 12.22 H RBC 3.81 L Hgb 8.6 L Hct 29.9 L MCV 78.5 L MCH 22.6 L MCHC 28.8 L RDW Std Deviation 72.3 H RDW Coeff of Malia 27.7 H Plt Count 255 MPV 10.4 Absolute Nucleated RBC 0.05 Nucleated RBC % (auto) 0.4 Sodium 140 Potassium 3.6 Chloride 102 Carbon Dioxide 34 H Anion Gap 4 BUN 7 Creatinine 0.37 L Est Cr Clr Drug Dosing 102.3 eGFR 100.63 BUN/Creatinine Ratio 18.9 Glucose 90 Calcium 8.7 Magnesium 1.6 L PG Care Time/CCT Total # of Minutes Spent Total Time Spent with Patient: Total time spent is greater than 50% in coordination of care (as documented) at patient's floor/unit and/or counseling patient: Coding Level of Care Code 30353 SUB INP/OBS CARE 3/50MIN Diagnoses Iron deficiency anemia D50.9 Heme positive stool R19.5 Acute blood loss anemia D62 Volume overload E87.70 Hypervolemia type: unspecified HTN (hypertension) I10 Hypertension type: essential hypertension Hypothyroidism E03.9 Hypokalemia E87.6 Hypomagnesemia E83.42 Hyperglycemia R73.9 Morbid obesity with BMI of 40.0-44.9, adult E66.01; Z68.41 Thrombocytopenia D69.6 RLL pneumonia J18.9 Right foot pain M79.671 Finger pain, left M79.645 (4) Volume overload Hypervolemia type: unspecified Qualified Code(s): E87.70 - Fluid overload, unspecified (5) HTN (hypertension) Hypertension type: essential hypertension Qualified Code(s): I10 - Essential (primary) hypertension
[2025-03-22] MEDS: MoRPHine SULFATE 2 MG/ML CARP IV STA (10:54)
[2025-03-22] MEDS: ONDANSETRON INJ 2 MG/ML 2 ML VIAL IV PRN (11:50)
--- NOTE | 2025-03-22 13:05 | Anesthesiology Consultation ---
Date of Service March 22, 2025 Assessment & Plan Chart Review Chart Review: Acceptable Risk for Surgery Consults Requested none ASA ASA2 Proposed Anesthesia Anesthesia Type: MAC Additional Notes Echo reviewed an in chart History Surgery Operation Date: 03/19/25 16:30 Proposed Procedures p Colonoscopy EGD Kathryn Peralta MD Operation Date: 03/22/25 16:30 Proposed Procedures p Colonoscopy EGD Dr. Patterson - Jose M Patterson MD Height/Weight Height: 4 ft 9 in Weight: 80.3 kg Allergies Allergy/AdvReac Type Severity Reaction Status Date / Time adhesive tape Allergy Intermediate tears skin Verified 03/17/25 18:36 Medications Home Medications Medication Instructions Recorded Confirmed Last Taken calcium 600 mg (as 1 cap PO BID 09/26/19 03/17/25 03/19/21 carbonate)-vitamin D3 5 mcg (200 unit) capsule (Calcium 600 + D(3)) levothyroxine 88 mcg tablet 88 mcg PO DAILYBB 09/26/19 03/17/25 03/19/21 multivitamin with minerals 1 tab PO QDL 09/26/19 03/17/25 03/19/21 acetaminophen 500 mg tablet 1,000 mg PO Q6 PRN Pain 11/24/20 03/17/25 03/19/21 aspirin 81 mg tablet,delayed 81 mg PO HS 11/24/20 03/17/25 03/19/21 release amoxicillin 500 mg tablet 2,000 mg (4 x 500 mg) PO ONCE #4 11/25/20 03/17/25 03/19/21 tabs diclofenac sodium 1 % topical gel 2 g topical QID PRN Pain 07/04/21 03/17/25 Unknown faricimab-svoa 6 mg/0.05 mL 6 mg intravitreal UD 03/17/25 03/17/25 Unknown intravitreal syringe (Vabysmo) ibandronate 150 mg tablet 150 mg PO MO 03/17/25 03/17/25 Unknown ibuprofen 200 mg tablet (Advil) 800 mg PO Q6 PRN Pain 03/17/25 03/17/25 Unknown lisinopril 2.5 mg tablet 2.5 mg PO DAILY 03/17/25 03/17/25 Unknown Active Medications Generic Name Dose Route Start Last Admin Trade Name Freq PRN Reason Stop Dose Admin Acetaminophen 1,000 mg 03/17/25 22:37 03/22/25 00:29 Acetaminophen 500 Mg Tab PO 04/16/25 22:36 1,000 mg Q6 PRN Administration Pain Benzonatate 200 mg 03/20/25 09:00 03/22/25 08:24 Benzonatate 100 Mg Capsule PO 04/19/25 08:59 Not Given TID CHAN Furosemide 20 mg 03/19/25 09:00 03/21/25 16:21 Furosemide Inj 20 Mg/2 Ml Vial IV 04/18/25 08:59 20 mg BID17 CHAN Administration Pantoprazole Sodium 40 mg/ 100 mls @ 20 mls/hr 03/17/25 17:30 03/22/25 08:23 Dextrose IV 04/16/25 17:29 8 mg/hr Q5H CHAN 20 mls/hr Administration 8 MG/HR Ceftriaxone Sodium 2,000 mg in 50 mls @ 100 mls/hr 03/18/25 20:00 03/21/25 22:22 Rocephin IV 03/23/25 19:59 Infused Q24H CHAN Infusion Doxycycline Hyclate 100 mg/ 100 mls @ 50 mls/hr 03/18/25 20:00 03/22/25 11:45 Dextrose IV 03/23/25 19:59 Infused Q12H CHAN Infusion Levothyroxine Sodium 88 mcg 03/18/25 06:30 03/22/25 05:54 Levothyroxine Sodium 88 Mcg Tablet PO 04/17/25 06:29 88 mcg DAILYBB CHAN Administration Magnesium Oxide 400 mg 03/19/25 09:00 03/22/25 11:45 Magnesium Oxide 400 Mg Tab PO 04/18/25 08:59 Not Given BID CHAN Melatonin 6 mg 03/20/25 19:59 03/20/25 21:56 Melatonin 3 Mg Tab PO 04/18/25 01:32 6 mg HS PRN Administration Sleep Multi-Ingredient Mouthwash/Gargle 5 ml 03/17/25 22:37 03/22/25 08:38 First - Mouthwash Blm 5 Ml Udp PO 04/16/25 22:36 Not Given QID CHAN Ondansetron HCl 4 mg 03/17/25 22:37 03/22/25 11:50 Ondansetron Inj 2 Mg/Ml 2 Ml Vial IV 04/16/25 22:36 4 mg Q6H PRN Administration Nausea Potassium Chloride 20 meq 09/14/25 09:00 03/22/25 11:49 Potassium Chloride Crtab 20 Meq Tabcr PO 04/20/25 08:59 Not Given BID CHAN Pramipexole Dihydrochloride 0.25 mg 03/20/25 21:00 03/21/25 21:14 Pramipexole Dihydrochlo 0.25 Mg Tab PO 04/19/25 20:59 0.25 mg HS CHAN Administration NPO Last Intake of Solids Comment: greater then 8 hrs Past Medical History Medical History HTN (hypertension) pt denies Hypothyroidism Stress fracture, right femur, initial encounter for fracture Fracture of femur left Osteoporosis Lumbar radiculopathy Lumbar spondylosis Spinal stenosis of lumbar region Vertebral compression fracture Severe T10, L4 Thoracic back pain Diffuse myofascial pain syndrome Stroke (~2008) R eye, ~15yrs ago. folllows with Dr Degroot ([facility]) with injections into the right eye every 6 weeks. Hx of fracture T11 compression fracture --> no surgical intervention, treated with rehab & physical therapy Degenerative disc disease Osteoarthritis Hx of Graves' disease radioactive iodine treatment Exercise / Class Metabolic Activity II 4-5 Yardwork/Stairs/Walk up hill Past Family History Family History Mother Leukemia Father Adopted due to patient being adopted -- father's medical history unknown Other No family history of adverse response to anesthesia Past Surgical History Surgical History Status post reverse total replacement of left shoulder (~01/2021) H/O wisdom tooth extraction H/O vein stripping bilateral History of open reduction and internal fixation (ORIF) procedure Left femur History of total right hip arthroplasty Past Anesthesia History No Hx of Anesthesia Complications History of PONV No Hx of PONV Social History Smoking Status: Never smoker Do You Dip or Chew Tobacco: No Hx Alcohol Use: No Hx Substance Use: No substance use type: does not use Physical Exam Vital Signs Last Vital Signs Temp 36.7 C 03/22/25 12:41 Pulse 79 03/22/25 12:41 Resp 16 03/22/25 12:41 BP 133/67 03/22/25 12:41 Pulse Ox 93 03/22/25 12:41 O2 Del Method Room Air 03/22/25 12:41 O2 Flow Rate 2 03/20/25 22:28 Constitutional + acute distress ENMT Mouth: no TMJ abnormality and no dentures Thyromental Distance: > or= 3.5 Finger Breadths Mallampati Class: II Respiratory normal respiratory effort Auscultation: lungs clear to auscultation bilaterally Cardiovascular Rate/Rhythm: regular rate and regular rhythm Neurologic moves all extremities Psychiatric Orientation: alert and oriented x 3 Testing Laboratory Results 03/22/25 05:43 03/22/25 05:43 PT 10.9 Seconds (9.0-12.0) 03/17/25 16:23 INR 1.0 (0.9-1.1) 03/17/25 16: APTT 25 Seconds (21-31) 03/17/25 16:23 Hemoglobin A1c 6.0 % (4.5-5.6) H 03/18/25 00:50 Urine Color Yellow 03/17/25 20:50 Urine Appearance Clear (Clear) 03/17/25 20:50 Urine pH 7.0 (4.5-7.5) 03/17/25 20:50 Ur Specific [place] 1.008 (1.000-1.030) 03/17/25 20:50 Urine Protein Negative (Negative) 03/17/25 20:50 Urine Glucose (UA) Negative (Negative) 03/17/25 20:50 Urine Ketones Negative (Negative) 03/17/25 20:50 Urine Nitrite Negative (Negative) 03/17/25 20:50 Ur Leukocyte Esterase Negative (Negative) 03/17/25 20:50 Blood Type O Positive 03/17/25 17:15 Antibody Screen NEGATIVE 03/17/25 17:15
--- NOTE | 2025-03-22 13:34 | Electrocardiogram Report ---
Test Reason : Blood Pressure : */* mmHG Vent. Rate : 81 BPM Atrial Rate : 81 BPM P-R Int : 164 ms QRS Dur : 138 ms QT Int : 430 ms P-R-T Axes : 65 66 -2 degrees QTcB Int : 499 ms Normal sinus rhythm Right bundle branch block T wave abnormality, consider inferior ischemia Abnormal ECG When compared with ECG of 17-Mar-2025 17:52, No significant change was found Confirmed by Quoc Green ([id number]) on 03/22/2025 1:33:33 PM Referred By: REFERRED SELF Confirmed By: Quoc Green
--- NOTE | 2025-03-22 14:01 | GI REPORT ---
[facility] Patient: STEWART MACEDO : 1945 Sex at : Female Age: 80 Years Procedure: Upper GI endoscopy Date: 03/22/2025 Attending Physician: Jose M Patterson MD Referring MD: Referred Self; Jaskaran Fisher Indications: - Anemia - Occult blood in stool Medications: - See the Anesthesia note for documentation of the administered medications Complications: - No immediate complications. Estimated Blood Loss: - Estimated blood loss was minimal. Procedure: - Prior to the procedure, a History and Physical was performed, and patient medications and allergies were reviewed. The patient's tolerance of previous anesthesia was also reviewed. The risks and benefits of the procedure and the sedation options and risks were discussed with the patient. All questions were answered, and informed consent was obtained. Prior Anticoagulants: The patient has taken no anticoagulant or antiplatelet agents except for aspirin, last dose was 10 days prior to procedure. ASA Grade Assessment: III - A patient with severe systemic disease. After reviewing the risks and benefits, the patient was deemed in satisfactory condition to undergo the procedure. - The egd scope was introduced through the mouth and advanced to the third part of the duodenum. - The upper GI endoscopy was accomplished without difficulty. - The patient tolerated the procedure well. Findings: - The examined duodenum was normal. Biopsies for histology were taken with a cold forceps for evaluation of celiac disease. - Patchy mildly erythematous mucosa without bleeding was found in the gastric antrum. This was biopsied with a cold forceps. - The gastric body was normal. Biopsies were taken with a cold forceps for Helicobacter pylori testing. - The Z-line was regular and was found 35 cm from the incisors. - A small hiatal hernia was present. - A non-bleeding diverticulum was found in the gastric fundus. Impression: - Normal examined duodenum. Biopsied. - Erythematous mucosa in the antrum. Biopsied. - Normal gastric body. Biopsied. - Z-line regular, 35 cm from the incisors. - Small hiatal hernia. - Gastric diverticulum. Recommendation: - Await pathology results. - Patient has a contact number available for emergencies. The signs and symptoms of potential delayed complications were discussed with the patient. Return to normal activities tomorrow. Written discharge instructions were provided to the patient. - Resume previous diet today. - Return to GI clinic PRN. Procedure Code(s): - 33717, Esophagogastroduodenoscopy, flexible, transoral; with biopsy, single or multiple Diagnosis Code(s): - D64.9, Anemia, unspecified - R19.5, Other fecal abnormalities - K31.89, Other diseases of stomach and duodenum - K44.9, Diaphragmatic hernia without obstruction or gangrene - K31.4, Gastric diverticulum CPT(R) - 2022 copyright [employer]. All Rights Reserved. The CPT codes, CCI edits and ICD codes generated are intended as suggestions and were generated based on input data. These codes are preliminary and upon food processing plant manager review may be revised to meet current compliance and payer requirements. The provider is responsible for the final determination of appropriate codes, and modifiers. Jose M Patterson MD This document has been electronically signed. Note Initiated:03/22/2025 Note Completed:03/22/2025 2:00 PM [email or web address]\Provation\Results\LIVE\[id number]
--- NOTE | 2025-03-22 14:05 | GI REPORT ---
[facility] Patient: STEWART MACEDO : 1945 Sex at : Female Age: 80 Years Procedure: Colonoscopy Date: 03/22/2025 Attending Physician: Jose M Patterson MD Referring MD: Referred Self; Jaskaran Fisher Indications: - Anemia - Evaluation of unexplained GI bleeding presenting with fecal occult blood Medications: - See the Anesthesia note for documentation of the administered medications Complications: - No immediate complications. Estimated Blood Loss: - Estimated blood loss: None. Procedure: - Prior to the procedure, a History and Physical was performed, and patient medications and allergies were reviewed. The patient's tolerance of previous anesthesia was also reviewed. The risks and benefits of the procedure and the sedation options and risks were discussed with the patient. All questions were answered, and informed consent was obtained. Prior Anticoagulants: The patient has taken no anticoagulant or antiplatelet agents except for aspirin, last dose was 10 days prior to procedure. ASA Grade Assessment: III - A patient with severe systemic disease. After reviewing the risks and benefits, the patient was deemed in satisfactory condition to undergo the procedure. - The pediatric colonoscope was introduced through the anus and advanced to the terminal ileum, with identification of the appendiceal orifice and ileocecal valve. - The colonoscopy was performed without difficulty. - The quality of the bowel preparation was evaluated using the BBPS (Rudd Bowel Preparation Scale) with scores of: Right Colon = 3, Transverse Colon = 3 and Left Colon = 3 (entire mucosa seen well with no residual staining, small fragments of stool or opaque liquid). The total BBPS score equals 9. - The terminal ileum, ileocecal valve, appendiceal orifice, and rectum were photographed. Findings: - The terminal ileum appeared normal. - Multiple diverticula were found in the entire colon. - There is no evidence of gastrointestinal bleeding seen on his exam Impression: - The examined portion of the ileum was normal. - Diverticulosis in the entire examined colon. - There is no evidence of gastrointestinal bleeding seen on his exam - No specimens collected. Recommendation: - Patient has a contact number available for emergencies. The signs and symptoms of potential delayed complications were discussed with the patient. Return to normal activities tomorrow. Written discharge instructions were provided to the patient. - Resume previous diet. - In the absence of any gastrointestinal bleeding may resume aspirin if needed. - To visualize the small bowel, perform video capsule endoscopy at appointment to be scheduled. - Continue to monitor blood counts and replete iron as needed. Investigate alternative etiologies for anemia. Please recall GI service as needed Procedure Code(s): - 50091, Colonoscopy, flexible; diagnostic, including collection of specimen(s) by brushing or washing, when performed (separate procedure) Diagnosis Code(s): - D64.9, Anemia, unspecified - R19.5, Other fecal abnormalities - K57.30, Diverticulosis of large intestine without perforation or abscess without bleeding CPT(R) - 2023 copyright [employer]. All Rights Reserved. The CPT codes, CCI edits and ICD codes generated are intended as suggestions and were generated based on input data. These codes are preliminary and upon cna hha review may be revised to meet current compliance and payer requirements. The provider is responsible for the final determination of appropriate codes, and modifiers. Jose M Patterson MD This document has been electronically signed. Note Initiated:03/22/2025 Note Completed:03/22/2025 2:04 PM [id number]
--- NOTE | 2025-03-22 14:20 | Anesthesiology Progress Note ---
Date of Service March 22, 2025 Anesthesia Post Procedure Vital Signs Vital Signs: Temp Pulse Pulse Resp BP Pulse Ox O2 Del Method 03/22/25 13:57 85 17 109/54 L 92 Room Air 03/22/25 12:41 36.7 C 79 16 133/67 93 Room Air 03/22/25 07:55 36.5 C 74 18 161/77 H 97 Room Air 03/22/25 04:10 36.4 C L 81 18 158/72 H 90 Room Air 03/22/25 02:20 Room Air 03/22/25 01:10 36.7 C 87 18 149/69 H 90 Room Air 03/21/25 22:02 94 H 03/21/25 20:01 36.6 C 84 18 171/84 H 90 Room Air 03/21/25 16:00 36.6 C 78 20 148/71 H 95 Room Air Pain Intensity Bilateral Back: Pain Intensity: 2 Transfer of Care Handoff Completed per policy Notes Mental Status: alert / awake / arousable Patient Amnestic to Procedure: Yes Nausea / Vomiting: adequately controlled Pain: adequately controlled Airway Patency, RR, SpO2: stable & adequate BP & HR: stable & adequate Hydration State: stable & adequate Anesthetic Complications: no major complications apparent and Pt Satisfied with anesthetic care
[2025-03-22] MEDS: PROPOFOL IV EMULSION 10 MG/ML 20 ML VIAL IV ONE (15:02)
[2025-03-22] MEDS: LIDOCAINE 2% 2 ML VIAL/AMP(20MG/ML) INFIL ONE (15:02)
[2025-03-22] MEDS: HYDROCODONE/ACETAMOPHEN 5/325MG TAB PO PRN (18:30)
[2025-03-23 10:35] LABS: Hematocrit (blood only) 31.4 % (37.0-47.0); Hemoglobin 8.7 g/dl (12.0-16.0)
[2025-03-23 11:04] LABS: Anion Gap 4.0 (3-11); Calcium 9.0 mg/dl (8.6-10.3); Carbon Dioxide 32.0 mmol/L (21-32); Chloride 100.0 mmol/L (98-107); Magnesium 1.8 mg/dl (1.7-2.4); Potassium 3.8 mmol/L (3.5-5.1); Sodium 136.0 mmol/L (136-145)
[2025-03-23 11:10] LABS: Blood Urea Nitrogen 12.0 mg/dl (6-23); Creatinine Clr Calc Pharmacy 95.4 ml/min; Glucose 125.0 mg/dl (70-99(Fasting))
[2025-03-23] MEDS: FUROSEMIDE INJ 20 MG/2 ML VIAL IV ONE (12:23)
--- NOTE | 2025-03-23 13:07 | XRay Report ---
XR chest 2V PA/lateral CLINICAL HISTORY: recent RLL pneumonia, recent CHF COMPARISON STUDY: 03/20/2025 FINDINGS: Stable cardiomegaly with mild pulmonary vascular congestion. Stable mild hazy opacity in th e lung bases. No pneumothorax. Stable height loss at the lower thoracic vertebral body. IMPRESSION: Stable exam. ACT 112: Negative or not required by law. Electronically signed by: Manny Steel M.D. 03/23/2025 1:06 PM
[2025-03-23] MEDS: OPTIRAY 320 100ml IV ONE (14:56)
--- NOTE | 2025-03-23 15:20 | CT Scan Report ---
CT lumbar spine w con CLINICAL HISTORY: lower lumbar pain, h/o compression Fx's COMPARISON STUDY: MRI of 05/29/2021 FINDINGS: There is stable mild to moderate height loss at the superior endplate of the L4 vertebral b kriss. No acute lumbar spine fracture seen. There is moderate degenerative disc disease and facet degen eration at the lower lumbar spine. There is stable grade 1 anterolisthesis of L3 on 4 and L4 on 5. Th ere is mild bilateral neural foraminal narrowing at L3-4, L4-5, and L5-S1. L5 is transitional with a pseudoarthrosis on the left. There is severe central canal narrowing at L4-5, grossly stable. IMPRESSION: No acute lumbar spine fracture seen. Otherwise as described. ACT 112: Negative or not required by law. Electronically signed by: Manny Steel M.D. 03/23/2025 3:19 PM
--- NOTE | 2025-03-23 15:28 | CT Scan Report ---
CT SCAN OF THE ABDOMEN AND PELVIS WITH IV CONTRAST CLINICAL HISTORY: Iron deficiency anemia. COMPARISON STUDY: Pelvic CT dated 03/19/2021. Abdominal ultrasound dated 03/19/2025. TECHNIQUE: Following the IV administration of 93 cc of Optiray 320, CT scan of the abdomen and pelvi s is performed from the lung bases to the proximal femora. Images are reviewed in the axial, sagittal , and coronal planes. IV contrast was administered without complication. A dose lowering technique wa s utilized adhering to the principles of ALARA. FINDINGS: Lung bases: The heart is enlarged and without pericardial effusion. There are trace pleural effusions with dependent atelectasis. A tiny hiatal hernia is noted. Liver: The contrast-enhanced liver is normal in size, contour, and attenuation. There is no intrahepa tic biliary ductal dilatation. The hepatic veins and portal veins are patent. Gallbladder: There are calcified gallstones with no CT evidence of acute cholecystitis. Spleen: Normal in size and attenuation. There is a 1.3 cm peripherally calcified splenic artery aneur ysm. Pancreas: Moderately atrophic and grossly unremarkable. Adrenal glands: Unremarkable. Kidneys: The contrast enhanced kidneys are normal in size and without hydronephrosis. The kidneys enh ance symmetrically. Abdominal vasculature: The abdominal aorta is normal in course and caliber noting mild atheroscleroti c calcification. Bowel: A diverticulum is seen posteriorly at the gastric fundus. There is no bowel obstruction. Duode nal diverticula are incidentally noted. There is mild colonic diverticulosis without CT evidence of a cute diverticulitis. The appendix is normal as visualized. Peritoneum: There is no intraperitoneal free air or abdominal ascites. There is a fat-containing umbi lical hernia. There is laxity of the ventral abdominal wall with diastases of the rectus musculature and protrusion of abdominal contents. Lymphadenopathy: None. Pelvic viscera: Evaluation of the pelvis is degraded by streak artifact from hardware in the hips. Th e bladder is partially decompressed and contains foci of intraluminal gas. The uterus and adnexa are normal as imaged. Skeletal structures: The skeletal structures are osteopenic. There is a severe compression deformity of T11. Fragments are retropulsed by about up to 5 mm. This does not contribute to significant centra l canal stenosis. There is lumbosacral spondylosis and mild scoliosis. Sclerotic change is seen in th e sacroiliac joints and pubic symphysis. No lytic or blastic lesions are seen. A right hip arthroplas ty is in place. There is chronic deformity of left proximal femur with intertrochanteric and intramed ullary nails in place. IMPRESSION: 1. No acute infectious or inflammatory findings are identified in the abdomen or pelvis. 2. Cholelithiasis. 3. Foci of gas within the gallbladder lumen are nonspecific and may be related to instrumentation. Co rrelate clinically. 4. Cardiomegaly noting trace pleural effusions. 5. Diverticulosis of the colon without CT evidence of acute diverticulitis. 6. Additional findings as above. ACT 112: Negative or not required by law. Electronically signed by: Morteza Zhang M.D. 03/23/2025 3:27 PM
--- NOTE | 2025-03-23 20:50 | Hospitalist Progress Note ---
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 #severe iron deficiency anemia // suspected acute [or acute on chronic] blood loss anemia // heme + stool - -s/p EGD & Colonoscopy 03/22; mild gastritis only; no PUD; diverticular disease on colonoscopy; no active bleeding any location; non-bleeding gastric diverticulum also seen -outpatient capsule endoscopy?? -s/p 3 units PRBCs since admission with improved and stable H/H; no overt GI bleeding since admission -H/H again stable today -cont PPI due to gastritis seen on EGD -cont regular diet -appreciate GI assistance -s/p venofer 300mg x 2 doses while here -give 3rd dose tomorrow, 03/24 -pt's daughter has asked several times about imaging of the abdomen; explained to pt's daughter that typically we rarely find the cause for Fe def on CT imaging -with that said did perform CT and no acute findings of the GI tract were seen #acute HFpEF / volume overload - resolved - -exam was consistent with severe volume overload at admission -echo with preserved EF - 55-60% - thus, volume overload likely due to acute HFpEF (severe anemia may have caused high output CHF) -COVID/flu/RSV negative -no h/o liver disease, and abdominal u/s w/o cirrhosis -TSH wnl -u/a without proteinuria -albumin level wnl -10-11+ liters negative since admission -gave 1 dose of 20mg lasix today but I believe she is near-euvolemia at this point -cxr today - improved infiltrates -no further IV lasix moving forward -BMP am -mag am #RLL pneumonia - IMPROVED/clinically resolving - -Rx for CAP -- s/p 5 days of rocephin/doxy -plan 7 days of Rx -change to PO abx today --> levaquin 750mg daily x 2 days -cough - tessalon TID #hypokalemia/hypomagnesemia - -suspect 2nd to poor oral intake leading up to admission & diuretic therapy while here -resolved -cont K and mag supplementation -BMP in am, mag in am #hypothyroidism - -TSH wnl in February 2025 -cont synthroid #?HTN - -BPs were markedly elevated in the setting of volume overload at time of a dmission despite her severe anemia -BPs have improved with diuresis -cont to hold lisinopril #hyperglycemia - -a1c 6% c/w pre-DM --> patent counsel patient #thrombocytopenia - -presenting platelet level was 52 -etiology? consumptive in setting of GI bleeding? other? -either way platelet level back to normal -checked B12/folate levels --> both wnl -abdominal u/s without enlarged spleen #minimal elevation in troponin - -level was 15 - scantly above normal range; myocardial demand ischemia in setting of severe anemia, volume overload, etc. -EKGs w/o ischemic changes #DVT proph - -chemical means had been contraindicated in light of suspected GI bleeding & heme+ stool -since h/h are stable can likely start heparin SC tomorrow if CBC on 03/24 is acceptable (and if patient stays beyond tomorrow) #right mid-foot pain - -present off/on for weeks -saw local cobbler upper for this -does not examine like a mid-foot gout attack -checked x-rays --> no fractures -follow -she apparently has been using a walking boot at home; family should retrieve such and bring to hospital; she can WBAT in the boot #left 2nd finger, DIP synovitis - -suspect acute gout or CPPD (x-rays with possible CPPD) -uric acid level noted -x-rays with OA changes and ?crystal deposition disease -solumedrol 20mg IV x 1, then 10mg IV daily x 2 days -- with resolution of the synovitis #dysthymia/mood disorder - -patient has admitted to low-grade depression for some time -offered apprise counselor & behavioral health consults but she deferred such -consider Rx of depression -B12 level robust -recent TSH level wnl #OA of multiple locations - -takes tylenol & motrin at home -tylenol not effective -would advise against motrin in light of heme+ stool, gastritis, etc. -norco prn ordered #severe back pain - -this has been her main complaint for several days -since her back pain had been worsening in the weeks/months leading up to this admission I obtained lumbar spine CT --- all findings chronic, no acute fractures, etc. -has considerable DDD/DJD of l-spine -CT a/p showed severe T11 compression fracture - this, too, is old -norco prn -no NSAIDs due to heme+ stool #restless legs - -exacerbated by severe Fe def -doing well on mirapex 0.25mg HS -would prescribe at discharge #snoring with hypoxia during sleep - -very suspicious for DENA -plan for overnight oximetry study -may need O2 at discharge w/ sleep while awaiting a formal sleep study updated pt's daughter Purnima by phone 03/19 and 03/22 updated pt's daughter Purnima & patient's son at bedside 03/21 PT/OT evals done - can return home with home PT/OT home tomorrow on 03/24? Admission and Anticipated Discharge Date Admission Date: March 17, 2025 Subjective tele overnight wnl just before my visit the patient had worked with therapy therapy stated she likely can return home at discharge we discussed rehab vs therapy at home -- patient wants to go home with therapy during the day - when awake - o2 sats are 95-100% in room air when sleeping she desats shortly after falling asleep she will desat to the 70s and o2 has to be applied staff hear snoring overall patient feeling much better in comparison to admission cough is still present but mainly dry and just annoying no dyspnea or MADDEN her main complaint is that of back pain chronic, but worsening over the last few years no recent falls denies radicular pain in her legs Review of Systems Review of Systems: gen - no fevers, no chills cv - no cp, no orthopnea, no edema pulm - no wheezing GI - no N/V; no melena Physical Exam Physical Exam: gen - looks well, NAD, sitting in chair, coughing at times HENT - MMM, ulcers on tongue resolved neck - no JVD CV - 2-3/6 systolic murmur LSB; RRR, s1 s2 lungs - airation R base nearly normal; no rales; no wheeze; good airation abd - soft, ND, NT, no HSM, BS+ ext - trace edema shins b/l vascular - pulses b/l feet 2+ musculo - OA changes most fingers b/l hands; left 2nd DIP joint - synovitis resolved psych - a/o x 3 back - tender to palpation paraspinal areas in lower lumbar region; strength b/l legs 5/5 Results & Data Results & Data Vital Signs (Past 12 Hours) Vital Signs Temp Pulse Pulse Resp BP BP Pulse Ox 03/23/25 19:39 36.7 C 89 18 147/78 H 97 03/23/25 15:55 36.4 C L 88 18 126/70 91 03/23/25 14:32 84 O2 Del Method O2 Flow Rate 03/23/25 19:39 Nasal Cannula 3 03/23/25 15:55 Nasal Cannula 3 03/23/25 14:32 Laboratory Results Laboratory Results - last 24 hr 03/23/25 10:12 Hgb 8.7 L Hct 31.4 L Sodium 136 Potassium 3.8 Chloride 100 Carbon Dioxide 32 Anion Gap 4 BUN 12 Creatinine 0.40 L Est Cr Clr Drug Dosing 95.4 eGFR 98.76 BUN/Creatinine Ratio 30.0 H Glucose 125 H Calcium 9.0 Magnesium 1.8 Diagnostic Findings Chest X-Ray 03/23/25 09:59 XR chest 2V PA/lateral CLINICAL HISTORY: recent RLL pneumonia, recent CHF COMPARISON STUDY: 03/20/2025 FINDINGS: Stable cardiomegaly with mild pulmonary vascular congestion. Stable mild hazy opacity in the lung bases. No pneumothorax. Stable height loss at the lower thoracic vertebral body. IMPRESSION: Stable exam. ACT 112: Negative or not required by law. Electronically signed by: Manny Steel M.D. 03/23/2025 1:06 PM Abdomen/Pelvis CT 03/23/25 14:09 CT SCAN OF THE ABDOMEN AND PELVIS WITH IV CONTRAST CLINICAL HISTORY: Iron deficiency anemia. COMPARISON STUDY: Pelvic CT dated 03/19/2021. Abdominal ultrasound dated 03/19/2025. TECHNIQUE: Following the IV administration of 93 cc of Optiray 320, CT scan of the abdomen and pelvis is performed from the lung bases to the proximal femora. Images are reviewed in the axial, sagittal, and coronal planes. IV contrast was administered without complication. A dose lowering technique was utilized adhering to the principles of ALARA. FINDINGS: Lung bases: The heart is enlarged and without pericardial effusion. There are trace pleural effusions with dependent atelectasis. A tiny hiatal hernia is noted. Liver: The contrast-enhanced liver is normal in size, contour, and attenuation. There is no intrahepatic biliary ductal dilatation. The hepatic veins and portal veins are patent. Gallbladder: There are calcified gallstones with no CT evidence of acute cholecystitis. Spleen: Normal in size and attenuation. There is a 1.3 cm peripherally calcified splenic artery aneurysm. Pancreas: Moderately atrophic and grossly unremarkable. Adrenal glands: Unremarkable. Kidneys: The contrast enhanced kidneys are normal in size and without hydronephrosis. The kidneys enhance symmetrically. Abdominal vasculature: The abdominal aorta is normal in course and caliber noting mild atherosclerotic calcification. Bowel: A diverticulum is seen posteriorly at the gastric fundus. There is no bowel obstruction. Duodenal diverticula are incidentally noted. There is mild colonic diverticulosis without CT evidence of acute diverticulitis. The appendix is normal as visualized. Peritoneum: There is no intraperitoneal free air or abdominal ascites. There is a fat-containing umbilical hernia. There is laxity of the ventral abdominal wall with diastases of the rectus musculature and protrusion of abdominal contents. Lymphadenopathy: None. Pelvic viscera: Evaluation of the pelvis is degraded by streak artifact from hardware in the hips. The bladder is partially decompressed and contains foci of intraluminal gas. The uterus and adnexa are normal as imaged. Skeletal structures: The skeletal structures are osteopenic. There is a severe compression deformity of T11. Fragments are retropulsed by about up to 5 mm. This does not contribute to significant central canal stenosis. There is lumbosacral spondylosis and mild scoliosis. Sclerotic change is seen in the sacroiliac joints and pubic symphysis. No lytic or blastic lesions are seen. A right hip arthroplasty is in place. There is chronic deformity of left proximal femur with intertrochanteric and intramedullary nails in place. IMPRESSION: 1. No acute infectious or inflammatory findings are identified in the abdomen or pelvis. 2. Cholelithiasis. 3. Foci of gas within the gallbladder lumen are nonspecific and may be related to instrumentation. Correlate clinically. 4. Cardiomegaly noting trace pleural effusions. 5. Diverticulosis of the colon without CT evidence of acute diverticulitis. 6. Additional findings as above. ACT 112: Negative or not required by law. Electronically signed by: Morteza Zhang M.D. 03/23/2025 3:[address] 03/23/25 14:09 CT lumbar spine w con CLINICAL HISTORY: lower lumbar pain, h/o compression Fx's COMPARISON STUDY: MRI of 05/29/2021 FINDINGS: There is stable mild to moderate height loss at the superior endplate of the L4 vertebral body. No acute lumbar spine fracture seen. There is moderate degenerative disc disease and facet degeneration at the lower lumbar spine. There is stable grade 1 anterolisthesis of L3 on 4 and L4 on 5. There is mild bilateral neural foraminal narrowing at L3-4, L4-5, and L5-S1. L5 is transitional with a pseudoarthrosis on the left. There is severe central canal narrowing at L4-5, grossly stable. IMPRESSION: No acute lumbar spine fracture seen. Otherwise as described. ACT 112: Negative or not required by law. Electronically signed by: Manny Steel M.D. 03/23/2025 3:19 PM PG Care Time/CCT Total # of Minutes Spent Total Time Spent with Patient: Total time spent is greater than 50% in coordination of care (as documented) at patient's floor/unit and/or counseling patient: Coding Level of Care Code 61141 SUB INP/OBS CARE 3/50MIN Diagnoses Iron deficiency anemia D50.9 Heme positive stool R19.5 Acute blood loss anemia D62 Volume overload E87.70 Hypervolemia type: unspecified HTN (hypertension) I10 Hypertension type: essential hypertension Hypothyroidism E03.9 Hypokalemia E87.6 Hypomagnesemia E83.42 Hyperglycemia R73.9 Morbid obesity with BMI of 40.0-44.9, adult E66.01; Z68.41 Thrombocytopenia D69.6 RLL pneumonia J18.9 Right foot pain M79.671 Finger pain, left M79.645 Compression fracture of T11 vertebra S22.080A Degenerative joint disease (DJD) of lumbar spine M47.816 Snoring R06.83 (4) Volume overload Hypervolemia type: unspecified Qualified Code(s): E87.70 - Fluid overload, unspecified (5) HTN (hypertension) Hypertension type: essential hypertension Qualified Code(s): I10 - Essential (primary) hypertension
[2025-03-24 08:04] LABS: Hematocrit (blood only) 30.2 % (37.0-47.0); Hemoglobin 9.0 g/dl (12.0-16.0); Mean Corpuscular Hemoglobin 24.0 pg (25.0-34.0); Mean Corpuscular Volume 80.5 fL (80.0-100.0); Platelet Count 382 K/uL (130-400); RDW Standard Deviation 79.4 fL (36.4-46.3); Red Blood Count 3.75 M/uL (4.20-5.40); White Blood Count 9.32 K/ul (4.8-10.8)
[2025-03-24 08:20] LABS: Anion Gap 5.0 (3-11); Blood Urea Nitrogen 14.0 mg/dl (6-23); Calcium 8.7 mg/dl (8.6-10.3); Carbon Dioxide 33.0 mmol/L (21-32); Chloride 99.0 mmol/L (98-107); Creatinine Clr Calc Pharmacy 95.2 ml/min; Glucose 81.0 mg/dl (70-99(Fasting)); Potassium 4.0 mmol/L (3.5-5.1); Sodium 137.0 mmol/L (136-145)
[2025-03-24] MEDS: DOCUSATE SODIUM 100 MG CAP PO PRN (09:15)
[2025-03-24 10:26] VITALS: PULSE 81
[2025-03-24] MEDS: IRON SUCROSE 200 MG in SODIUM CHLORIDE 0.9% 100 ML IV ONE (10:46)
[2025-03-24 11:25] VITALS: BP 149/71; TEMP 98.2
[2025-03-24 12:01] VITALS: RESP 18; O2SAT 87
--- NOTE | 2025-03-24 14:08 | Discharge Summary ---
Date of Service March 24, 2025 Admission HPI Per Admitting Provider Very pleasant 80yo female with history of Graves Disease s/p radioactive iodine treatment many years ago with resulting post-ablation hypothyroidism, arthritis in numerous locations, chronic pain due to arthritis, lumbar DDD, and ?HTN presents with several days of worsening shortness of breath (at rest, with activity, and nocturnally), severe edema of both legs, swelling of her abdomen, fatigue & weakness, poor appetite, "dark" stools for 2-3 days, lesions of her right tongue, and several days of cough. She has been sleeping poorly because of the cough & shortness of breath. Denies any hematemesis, BRBPR, abdominal pain. No fevers. Patient denies any alcohol use. She has been taking chronically for years motrin 800mg three times daily for arthritis as well as 81mg of aspirin daily. Upon ER presentation today her hemoglobin was 5.1. I consented her for PRBCs during the admission process. Questions answered. Principal Diagnosis acute gastrointestinal blood loss anemia Discharge Exam gen - looks well, NAD, sitting in chair HENT - MMM, ulcers on tongue resolved neck - no JVD CV - 2-3/6 systolic murmur LSB; RRR, s1 s2 lungs - airation R base nearly normal; no rales; no wheeze; good airation abd - soft, ND, NT, no HSM, BS+ ext - trace edema shins b/l vascular - pulses b/l feet 2+ musculo - OA changes most fingers b/l hands; left 2nd DIP joint - synovitis resolved psych - a/o x 3 back - tender to palpation paraspinal areas in lower lumbar region; strength b/l legs 5/5 Discharge Data Allergies Allergy/AdvReac Type Severity Reaction Status Date / Time adhesive tape Allergy Intermediate tears skin Verified 03/17/25 18:36 Consultations 03/17/25 17:30 ED Decision to Admit Stat 03/17/25 22:37 Consult Gastroenterology Routine 03/21/25 12:29 Consult Anesthesiology Routine Procedures Performed Operation Date: 03/22/25 16:30 Actual Procedures p EGD Biopsy Cytology - Jose M Patterson MD s Colonoscopy - Jose M Patetrson MD Ordered Studies 03/19/25 07:00 US abdomen complete Routine 03/23/25 14:09 CT abd pelvis IV con only Routine CT lumbar spine w con Routine Hospital Course (1) Degenerative joint disease (DJD) of lumbar spine: Plan 80yo female with history of Graves Disease s/p radioactive iodine treatment many years ago with resulting post-ablation hypothyroidism, chronic pain due to arthritis, lumbar DDD, and ?HTN presented with several days of worsening shortness of breath (at rest, with activity, and nocturnally) and cough, severe edema of both legs, swelling of her abdomen, fatigue & weakness, poor appetite, "dark" stools for 2-3 days, lesions of her right tongue. #severe iron deficiency anemia // suspected acute [or acute on chronic] blood loss anemia // heme + stool - -s/p EGD & Colonoscopy 03/22; mild gastritis only; no PUD; diverticular disease on colonoscopy; no active bleeding any location; non-bleeding gastric diverticulum also seen -outpatient capsule endoscopy?? -s/p 3 units PRBCs since admission with improved and stable H/H; no overt GI bleeding since admission -H/H again stable today -cont PPI due to gastritis seen on EGD -cont regular diet -appreciate GI assistance -s/p venofer 300mg x 2 doses, and 200 mg x1 on day of discharge. -pt's daughter has asked several times about imaging of the abdomen; explained to pt's daughter that typically we rarely find the cause for Fe def on CT imaging -with that said did perform CT and no acute findings of the GI tract were seen Likely due to NSAID use, will transition NSAID to Tylenol and oxycodone/ #acute HFpEF / volume overload - resolved - -exam was consistent with severe volume overload at admission -echo with preserved EF - 55-60% - thus, volume overload likely due to acute HFpEF (severe anemia may have caused high output CHF) -COVID/flu/RSV negative -no h/o liver disease, and abdominal u/s w/o cirrhosis -TSH wnl -u/a without proteinuria -albumin level wnl -10-11+ liters negative since admission -gave 1 dose of 20mg lasix today but I believe she is near-euvolemia at this point -cxr today - improved infiltrates -no further IV lasix moving forward #RLL pneumonia - IMPROVED/clinically resolving - -Rx for CAP -- s/p 5 days of rocephin/doxy -plan 7 days of Rx -change to PO abx today --> levaquin 750mg daily x 2 days -cough - tessalon TID #hypokalemia/hypomagnesemia - -suspect 2nd to poor oral intake leading up to admission & diuretic therapy while here -resolved -cont K and mag supplementation #hypothyroidism - -TSH wnl in February 2025 -cont synthroid #?HTN - -BPs were markedly elevated in the setting of volume overload at time of admission despite her severe anemia -BPs have improved with diuresis -cont to hold lisinopril #hyperglycemia - -a1c 6% c/w pre-DM --> 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 consumptive in setting of GI bleeding? other? -either way platelet level back to normal -checked B12/folate levels --> both wnl -abdominal u/s without enlarged spleen #minimal elevation in troponin - -level was 15 - scantly above normal range; myocardial demand ischemia in setting of severe anemia, volume overload, etc. -EKGs w/o ischemic changes #DVT proph - -chemical means had been contraindicated in light of suspected GI bleeding & heme+ stool -since h/h are stable can likely start heparin SC tomorrow if CBC on 03/24 is acceptable (and if patient stays beyond tomorrow) #right mid-foot pain - -present off/on for weeks -saw local strategic planning manager for this -does not examine like a mid-foot gout attack -checked x-rays --> no fractures -follow -she apparently has been using a walking boot at home; family should retrieve such and bring to hospital; she can WBAT in the boot #left 2nd finger, DIP synovitis - -suspect acute gout or CPPD (x-rays with possible CPPD) -uric acid level noted -x-rays with OA changes and ?crystal deposition disease -solumedrol 20mg IV x 1, then 10mg IV daily x 2 days -- with resolution of the synovitis #dysthymia/mood disorder - -patient has admitted to low-grade depression for some time -offered dye range operator & behavioral health consults but she deferred such -consider Rx of depression -B12 level robust -recent TSH level wnl #OA of multiple locations - -takes tylenol & motrin at home -tylenol not effective -would advise against motrin in light of heme+ stool, gastritis, etc. -norco prn ordered #severe back pain - -this has been her main complaint for several days -since her back pain had been worsening in the weeks/months leading up to this admission I obtained lumbar spine CT --- all findings chronic, no acute fractures, etc. -has considerable DDD/DJD of l-spine -CT a/p showed severe T11 compression fracture - this, too, is old -norco prn -no NSAIDs due to heme+ stool #restless legs - -exacerbated by severe Fe def -doing well on mirapex 0.25mg HS -would prescribe at discharge #snoring with hypoxia during sleep - -very suspicious for DENA -plan for overnight oximetry study -patient requires oxygen, 2 liters nasal cannula at all times due to 2 step. Total Time Total Time Spent Total Time Spent (In Minutes): 35 Discharge Plan Discharge Items Patient Disposition: Home - Self-Care Reason For Visit: GI BLEEDING, SEVERE FE DEF ANEMIA, VOLUME OVERLOAD Discharge Diagnosis: GI bleed Condition on Discharge: Good Activity: Resume your previous activity Non-emergency contact: Primary Care Provider Call non-emergency contact if: you have any medication questions and your symptoms worsen Follow-up/Referrals: Della Reyes DO [Primary Care Provider] - 03/29/25 2:45 pm (Primary care hospital follow up scheduled on 03/29/25 at 2:45 at the [facility]) Diet: Heart Healthy Addtl Attending Provider Instructions: You were admitted to the hospital due to a GI bleed, among other things. It is very likely that this bleed stems from your use of Ibuprofen. Moving forward, please avoid all NSAIDs (Motrin, Advil, Naproxen etc. ). You underwent upper and lower scopes, neither of which showed a definitive site of bleeding. However, the upper endoscopy showed some irritation to the lining of the stomach, for which you were started a new medication (see below). You also received multiple blood transfusions and iron supplementation to treat your anemia. Please continue to take an iron supplement as directed below. If you have any recurrent bleeding, please notify your doctor immediately or go to the emergency room, as this may indicate a need for additional studies. You were also treated for pneumonia while in the hospital. This may explain your residual need for supplemental oxygen during the day. This should hopefully resolve over the coming weeks. However, your nighttime need for supplemental oxygen suggests you may have underlying sleep apnea. Please follow up with your primary care provider shortly after discharge. They will likely recommend a formal sleep study to establish a definitive diagnosis. In the interim, we are sending you home with supplemental oxygen. Please use this continuously both day and night until directed otherwise by your outpatient providers. As noted above, please STOP all NSAIDs moving forward. For your pain, we recommend taking Tylenol 650mg four times daily. Please take this routinely. We are sending a small quantity of oxycodone as well, which you may take for breakt hrough pain. New Medications: - Protonix: Please take one tablet twice daily for roughly the next month. After this, your primary care doctor will help determine when this can be decreased to once daily dosing. - Ferrous Gluconate (Iron supplement): Please take 1 tablet on Mondays, Wednesdays, and Fridays - Oxycodone: [facility] Please only take as needed for severe/breakthrough pain Pramipexole: for restless leg syndrome. Pending Studies at Discharge: No Stand-Alone Forms: My [facility] [employer], Smoking Cessation Medications and DC Order Prescriptions: New pantoprazole 40 mg Tablet,Delayed Release (Dr/Ec) 40 mg PO BID 30 Days Qty: 60 0RF ferrous gluconate 236 mg (27 mg iron) tablet See Rx Instructions .ROUTE .COMPLEX Qty: 30 0RF Rx Instructions: 236 mg orally three times weekly (Saturday, Saturday, Saturday) pramipexole 0.25 mg tablet 0.25 mg PO HS Qty: 30 0RF oxycodone 5 mg tablet 5 mg PO Q8H PRN (Reason: pain) Qty: 14 0RF Continued diclofenac sodium 1 % gel 2 g topical QID PRN (Reason: Pain) Rx Instructions: apply to single elbow, wrist or hand; for hand includes palm/fingers/back of hand, and back. amoxicillin 500 mg tablet 2,000 mg PO ONCE Qty: 4 3RF Rx Instructions: 4 tabs 1 hour prior to procedure levothyroxine 88 mcg tablet 88 mcg PO DAILYBB multivitamin with minerals Tablet 1 tab PO QDL calcium carbonate-vitamin D3 [Calcium 600 + D(3)] 600 mg calcium- 200 unit Capsule 1 cap PO BID aspirin 81 mg tablet,delayed release (DR/EC) 81 mg PO HS acetaminophen 500 mg tablet 1,000 mg PO Q6 PRN (Reason: Pain) lisinopril 2.5 mg tablet 2.5 mg PO DAILY ibandronate 150 mg Tablet 150 mg PO MO Rx Instructions: 03/17/25 PT IS OFF THIS MED FOR THE YEAR 2024. WILL RESUME IN 2025. Vabysmo 6 mg/0.05 mL Syringe 6 mg INTRAVITREAL UD Rx Instructions: INJECT R EYE EVERY 6-8 WEEKS Discontinued ibuprofen [Advil] 200 mg Tablet 800 mg PO Q6 PRN (Reason: Pain) Discharge Orders: Discharge Order (Routine); Ordered 03/24/25 Ordered By: Roberto Esqueda/Other Patient Handouts: Prediabetes, 5 Steps for Eating Healthier Admission Data Admit Date/Time: 03/17/25 19:20 Attending Provider: Fidencio Chaney Admit Provider: Jaskaran Fisher Primary Care Provider: Della Reyes Other Providers: Jaskaran Fisher; Laci Mauro Jr; Jose M Gomes Other Interventions: Discharge Summary Assessment (RN) Last Done: 03/22/25 14:25 Supervising Physician Co-Signing Physician Notes During face to face encounter, I obtained a brief physical examination, discussed hospital stay with patient and discharge instructions with patient. I discussed discharge plan of care with Dr. Galan. I reviewed above note, helped edit and agree with it except for the following: Patient will require 4 weeks of protonix BID. This will then be transitioned to Protonix daily and hopefully tapered off. Given her GI bleed, will recommend iron supplements. Likely cause NSAID
--- NOTE | 2025-03-24 14:24 | Billing Data ---
Date of Service March 24, 2025 Coding Level of Care Code 62361 INP/OBS DISCH >30 MIN Time Spent (min) 40
== END 2025-03-24 16:23 | disposition home health service (06) | DRG 377 ==
LOC: ED 16:01 → SUATTDRO 19:20 → 2S 19:20

== ENCOUNTER 2025-06-26 08:35 | Inpatient (IN) ==
--- NOTE | 2025-06-26 08:50 | Emergency Department Note ---
Impression & Plan Left hip pain, Left groin pain, Ambulatory dysfunction ED Provider Note NAME: STEWART MACEDO AGE: 80 SEX: F : 1945 ARRIVES VIA: Ambulance INFORMANT: [Patient][EMS] ED PROVIDER(S): [Morteza Mendez MD] CHIEF COMPLAINT: Left groin pain HISTORY OF PRESENT ILLNESS: The patient is an 80-year-old female who presents with left groin and left hip pain that has been progressing for about a week. There was no fall or trauma. She has been trying Tylenol for pain. The patient states that the pain has increased to the point where she cannot function, she presents for evaluation. Any movement of the left hip causes significant discomfort. There has been no urinary complaint. No fever. No cough or congestion. No abdominal pain. PMHx/PSHx/Social Hx: See Below PHYSICAL EXAM: GENERAL: Patient is in mild distress from pain. HEENT: No acute trauma, normocephalic atraumatic, mucous membranes moist, no nasal congestion. NECK: No stridor, no adenopathy, no meningismus, trachea is midline. LUNGS: Clear to auscultation bilaterally, no wheeze, no rhonchi, breath sounds equal. HEART: There is a 2/6 systolic murmur, regular rate and rhythm. ABDOMEN: Soft, nontender, no peritonitis. EXTREMITIES: No cyanosis. The patient has significant discomfort with palpation around the area of the left hip. Movement of the left hip causes severe discomfort. She has a strong left femoral pulse, no adenopathy seen, no erythema to suggest infection. NEUROLOGIC: Oriented x 3, no acute motor or sensory deficits, no focal weakness. SKIN: No jaundice, no diaphoresis. DIFFERENTIAL DIAGNOSIS: Fracture, sprain, strain, arthritis, bursitis, UTI, among others. EMERGENCY DEPARTMENT PROCEDURES: MEDICAL DECISION MAKING: There is no leukocytosis or concerning anemia. There is a normal platelet count. No renal failure or significant electrolyte abnormality. No concerning liver enzyme elevation. Urinalysis does not show findings of infection. Abdominal and pelvis CT showed a small fat containing left inguinal hernia, no diverticulitis or findings that would explain her discomfort. Left femur and left hip films were performed, her brad was in place, there was no fracture or hip dislocation. On exam, the patient had pain with movement of her left hip or palpation of the left hip and groin. There was a strong left femoral pulse. No left groin adenopathy. The patient received IV morphine for pain, IV Zofran for nausea. She was given IV saline for hydration. She eventually required IV Dilaudid for additional pain control. At this point, the cause for her discomfort is not clear. She is in significant discomfort though and, not able to ambulate. She is in need of a hospital stay, possibly an orthopedic consult. I did talk with the patient and case management, the on-call hospitalist was consulted. Prior/Outside records/notes reviewed: Today's EMS notes describing her presentation and transport to this hospital. ECG per my interpretation: Indication was pain. The ECG shows a normal sinus rhythm with a rate of 88. There is a right bundle branch block. There is some baseline artifact. No ST elevation, no PVCs. QTc is of 486. Continuous Cardiac Monitoring per my interpretation: An order was placed for continuous cardiac monitoring. The monitor shows a rate of 95 with normal sinus rhythm. Imaging/x-ray results per my interpretation: Chest x-ray did not show rib injury or pneumothorax. There was no pneumonia. Left femur and left hip films were performed, her brad was in place, there was no acute fracture, no hip dislocation. Chronic Medical/Social conditions affecting care: Advanced age. Care/Management discussed with: Case management, the on-call hospitalist. Level of care consideration(s): After review of the information above and other included data: --I believe the patient requires escalation of care to admission DISPOSITION: Admission Past Med/Surg History Problem List Ambulatory dysfunction (Acute) Left groin pain (Acute) Left hip pain (Acute) Left groin pain Left hip pain Snoring Degenerative joint disease (DJD) of lumbar spine Compression fracture of T11 vertebra Finger pain, left Right foot pain RLL pneumonia Abnormal CXR Thrombocytopenia (Acute) Morbid obesity with BMI of 40.0-44.9, adult Hyperglycemia Hypomagnesemia (Acute) Volume overload (Acute) Heme positive stool Iron deficiency anemia Acute blood loss anemia (Acute) Medical History HTN (hypertension) pt denies Hypothyroidism Stress fracture, right femur, initial encounter for fracture Fracture of femur left Osteoporosis Lumbar radiculopathy Lumbar spondylosis Spinal stenosis of lumbar region Vertebral compression fracture Severe T10, L4 Thoracic back pain Diffuse myofascial pain syndrome Stroke (~2008) R eye, ~15yrs ago. yung with Dr Degroot ([facility]) with injections into the right eye every 6 weeks. Hx of fracture T11 compression fracture --> no surgical intervention, treated with rehab & physical therapy Degenerative disc disease Osteoarthritis Hx of Graves' disease radioactive iodine treatment Surgical History Status post reverse total replacement of left shoulder (~01/2021) H/O wisdom tooth extraction H/O vein stripping bilateral History of open reduction and internal fixation (ORIF) procedure Left femur History of total right hip arthroplasty Family History Mother Leukemia Father Adopted due to patient being adopted -- father's medical history unknown Other No family history of adverse response to anesthesia Social History Smoking Status: Never smoker Second Hand Exposure: No; Do You Dip or Chew Tobacco: No; Hx Alcohol Use: No Hx Substance Use: No Preferred Language: Amharic Communication Ability: Effective Visual Impairment: No Limitations Ledger Clerk Required: No Beliefs That Will Affect Care: None marital status: / Current Living Situation: Alone current occupational status: retired 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 [employer] How many Children do You have: 5 Feels Safe at Home: Yes Assistive Devices: Glasses and Walker Allergies Allergies Allergy/AdvReac Type Severity Reaction Status Date / Time adhesive tape Allergy Intermediate tears skin Verified 03/17/25 18:36 Home Meds Home Medications Medication Instructions Recorded Confirmed calcium 600 mg (as 1 cap PO BID 09/26/19 06/26/25 carbonate)-vitamin D3 5 mcg (200 unit) capsule (Calcium 600 + D(3)) levothyroxine 88 mcg tablet 88 mcg PO DAILYBB 09/26/19 06/26/25 multivitamin with minerals 1 tab PO QDL 09/26/19 06/26/25 acetaminophen 500 mg tablet 1,000 mg PO Q6 PRN Pain 11/24/20 06/26/25 aspirin 81 mg tablet,delayed 81 mg PO HS 11/24/20 06/26/25 release diclofenac sodium 1 % topical gel 2 g topical QID PRN Pain 07/04/21 06/26/25 faricimab-svoa 6 mg/0.05 mL 0 mg intravitreal UD 03/17/25 06/26/25 intravitreal syringe (Jeannesmo) ibandronate 150 mg tablet 0 mg PO MO 03/17/25 06/26/25 lisinopril 2.5 mg tablet 2.5 mg PO DAILY 03/17/25 06/26/25 ferrous gluconate 236 mg (27 mg 236 mg PO UD 06/26/25 06/26/25 iron) tablet pantoprazole 40 mg tablet,delayed 40 mg PO BID 06/26/25 06/26/25 release Previous Rx's Medication Instructions Recorded amoxicillin 500 mg tablet 2,000 mg (4 x 500 mg) PO ONCE #4 11/25/20 tabs pramipexole 0.25 mg tablet 0.25 mg PO HS #30 tabs 03/24/25 lidocaine 5 % topical patch 1 patch topical DAILY PRN pain #15 05/06/25 ea oxycodone 5 mg tablet 5 mg PO Q8H PRN pain #9 tabs 05/06/25 Results & Data (ED) Vital Signs Vital Signs - 24 hr 06/26/25 08:46 06/26/25 08:57 06/26/25 08:59 Temperature 36.4 C L Temperature Source Oral Pulse Rate 92 H 91 H 95 H Pulse Rate [Apical] Pulse Rhythm [Apical] Pulse Strength [Apical] Respiratory Rate 24 17 Respiratory Effort / Characteristics Non-Labored Spontaneous Splinting (from pain) Respiratory Depth Shallow Respiratory Pattern Regular Blood Pressure 178/120 H Blood Pressure [Left Arm] Blood Pressure Mean 139 Blood Pressure Mean [Left Arm] Blood Pressure Position [Left Arm] Pulse Oximetry 97 96 Oxygen Delivery Method Room Air Room Air Oxygen Flow Rate Sepsis Recent Fever Within 48 Hours No Sepsis New/Unexplained Change in Mental Status No Sepsis Action Taken by Nursing No Action Required 06/26/25 10:00 06/26/25 13:00 06/26/25 13:14 Temperature Temperature Source Pulse Rate 62 Pulse Rate [Apical] 80 63 Pulse Rhythm [Apical] Regular Pulse Strength [Apical] Normal Respiratory Rate 19 18 Respiratory Effort / Characteristics Non-Labored Spontaneous Labored Respiratory Depth Normal Respiratory Pattern Blood Pressure Blood Pressure [Left Arm] 186/86 H 118/65 Blood Pressure Mean Blood Pressure Mean [Left Arm] 119 82 Blood Pressure Position [Left Arm] Semi-fowlers Pulse Oximetry 100 99 Oxygen Delivery Method Nasal Cannula Nasal Cannula Oxygen Flow Rate 2 3 Sepsis Recent Fever Within 48 Hours Sepsis New/Unexplained Change in Mental Status Sepsis Action Taken by Nursing 06/26/25 14:00 Temperature Temperature Source Pulse Rate Pulse Rate [Apical] 66 Pulse Rhythm [Apical] Pulse Strength [Apical] Respiratory Rate 18 Respiratory Effort / Characteristics Respiratory Depth Respiratory Pattern Blood Pressure Blood Pressure [Left Arm] 113/62 Blood Pressure Mean Blood Pressure Mean [Left Arm] 79 Blood Pressure Position [Left Arm] Pulse Oximetry 100 Oxygen Delivery Method Nasal Cannula Oxygen Flow Rate 3 Sepsis Recent Fever Within 48 Hours Sepsis New/Unexplained Change in Mental Status Sepsis Action Taken by Retirement Medications Current Medication List: was personally reviewed by me Laboratory Data Attestation: I reviewed the patient's lab results. 06/26/25 08:52 06/26/25 08:52 Lab Results 06/26/25 06/26/25 Range/Units 08:52 10:13 WBC 5.81 (4.8-10.8) K/ul RBC 4.24 (4.20-5.40) M/uL Hgb 13.4 (12.0-16.0) g/dL Hct 40.8 (37.0-47.0) % MCV 96.2 (80.0-100.0) fL MCH 31.6 (25.0-34.0) pg MCHC 32.8 (32.0-36.0) g/dL RDW Std Deviation 54.8 H (36.4-46.3) fL RDW Coeff of Malia 16.5 H (11.5-14.5) % Plt Count 212 (130-400) K/uL MPV 9.4 (9.4-12.4) fL Immature Gran % (Auto) 0.0 % Neut % (Auto) 69.5 % Lymph % (Auto) 17.6 % Hernando % (Auto) 10.0 % Eos % (Auto) 2.2 % Baso % (Auto) 0.7 % Neut # (Auto) 4.04 (1.40-6.50) K/uL Lymph # (Auto) 1.02 L (1.20-3.40) K/uL Hernando # (Auto) 0.58 (0.11-0.59) K/uL Eos # (Auto) 0.13 (0.00-0.50) K/uL Baso # (Auto) 0.04 (0.00-0.20) K/uL Immature Gran # (Auto) 0.00 L (0.01-0.20) K/uL Sodium 138 (136-145) mmol/L Potassium 4.4 (3.5-5.1) mmol/L Chloride 104 (98-107) mmol/L Carbon Dioxide 27 (21-32) mmol/L Anion Gap 7 (3-11) BUN 29 H (6-23) mg/dl Creatinine 0.52 L (0.6-1.2) mg/dl Est Cr Clr Drug Dosing 74.4 ml/min eGFR 92.70 BUN/Creatinine Ratio 55.8 H (10-20) Glucose 111 H (70-99(Fasting)) mg/dl Calcium 9.5 (8.6-10.3) mg/dl Magnesium 2.0 (1.7-2.4) mg/dl Total Bilirubin 0.3 (0.2-1.0) mg/dl AST 26 (13-39) U/L ALT 34 (7-52) U/L Alkaline Phosphatase 94 (34-104) U/L Total Protein 7.7 (6.0-8.3) gm/dl Albumin 4.3 (3.4-5.0) gm/dl Globulin 3.4 (2.5-4.0) gm/dl Albumin/Globulin Ratio 1.3 (0.9-2) Urine Color Yellow Urine Appearance Clear (Clear) Urine pH 7.0 (4.5-7.5) Ur Specific [place] 1.008 (1.000-1.030) Urine Protein Negative (Negative) Urine Glucose (UA) Negative (Negative) Urine Ketones Negative (Negative) Urine Blood Negative (Negative) Urine Nitrite Negative (Negative) Urine Bilirubin Negative (Negative) Urine Urobilinogen Negative (Negative) Ur Leukocyte Esterase Negative (Negative) Urine Comment Administered Medications Discontinued Medications Hydromorphone HCl (Hydromorphone Inj 0.5 Mg/0.5 Ml Syr) 0.5 mg IV NOW STA Stop: 06/26/25 09:21 Last Admin: 12/20/25 09:24 Dose: 0.5 mg Documented By: MOISES Hydromorphone HCl (Hydromorphone Inj 0.5 Mg/0.5 Ml Syr) 0.5 mg IV Q15M PRN PRN Reason: Pain Stop: 07/10/25 09:29 Last Admin: 06/26/25 14:05 Dose: 0.5 mg Documented By: Admin: 06/26/25 10:35 Dose: 0.5 mg Documented By: MOISES Sodium Chloride (Nss) 500 mls @ 999 mls/hr IV .Q31M ONE Stop: 06/26/25 09:16 Last Infusion: 06/26/25 10:31 Dose: Infused Documented By: Admin: 06/26/25 08:56 Dose: 999 mls/hr Documented By: SABINE Ioversol (Optiray 320 100ml) 94 ml IV ONCE ONE Stop: 06/26/25 10:22 Last Admin: 06/26/25 10:22 Dose: 94 ml Documented By: GHANSHYAM Morphine Sulfate (Morphine Sulfate 4 Mg/Ml 1 Ml Carp\Vial) 4 mg IV NOW STA Stop: 06/26/25 08:47 Last Admin: 06/26/25 08:57 Dose: 4 mg Documented By: SABINE Ondansetron HCl (Ondansetron Inj 2 Mg/Ml 2 Ml Vial) 4 mg IV NOW STA Stop: 06/26/25 08:47 Last Admin: 06/26/25 08:56 Dose: 4 mg Documented By: SABINE Ondansetron HCl (Ondansetron Inj 2 Mg/Ml 2 Ml Vial) 4 mg IV NOW STA Stop: 06/26/25 11:25 Last Admin: 06/26/25 11:29 Dose: 4 mg Documented By: KEMI Imaging Data Radiologist's Impression: Hip/Pelvis X-Ray 06/26/25 08:46 Clinical History: Pain. 3 views of the left hip are submitted for review. Comparison is made to the prior examination dated 05/06/2025 Findings: No definite acute fracture is identified. There are unchanged bone fragments superior to the greater trochanter of the left femur. There is internal fixation of an old healed fracture of the mid femoral shaft with a fixation brad and screws. There is no definite sign of instrumentation failure. No other osseous abnormality is identified. There are no radiopaque foreign bodies. Impression: Internal fixation of an old fracture of the left femoral shaft Electronically signed by Danny Lobato 06-26-2025 10:03 AM Chest X-Ray 06/26/25 08:47 Technique: A frontal view of the chest was obtained Findings: There are no definite pulmonary infiltrates. The heart size is at the upper limit of normal. No pleural effusion or pneumothorax is seen. There is mild bilateral lung base atelectasis No fracture is noted. There is a left shoulder arthroplasty Impression: Mild bilateral lung base atelectasis Electronically signed by Danny Lobato 06-26-2025 10:00 AM Femur X-Ray 06/26/25 08:53 Clinical History: Pain. 2 views of the left femur are submitted for review. Findings: There is internal fixation of an old healed fracture of the mid femoral shaft with a fixation brad and screws. There is no definite sign of instrumentation failure. There is mild left knee osteoarthritis. No other osseous abnormality is identified. There are no radiopaque foreign bodies. Impression: Internal fixation of an old fracture of the left femoral shaft Electronically signed by Danny Lobato 06-26-2025 10:01 AM Abdomen/Pelvis CT 06/26/25 09:20 Clinical History: Left pelvic pain Technique: Axial computed tomography images were obtained of the abdomen and pelvis without intravenous contrast. Comparison is made to the prior CT dated 03/23/2025. Findings: The liver is overall of normal size, attenuation, and contour with no sign of cirrhosis or significant fatty infiltration. No liver mass lesion is seen. A gallstone is present. There is no definite sign of acute cholecystitis. No bile duct dilatation is noted. The spleen is of normal size. No focal splenic lesion is evident. The pancreas appears normal with no sign of acute or chronic pancreatitis and no mass lesion noted. The pancreatic duct is of normal caliber. The adrenal glands appear unremarkable. No renal or proximal ureteral calculi are seen. There is no hydronephrosis or perinephric stranding. No renal mass lesion is identified. There is a 1.5 cm left renal cyst The aorta is of normal caliber. No abdominal adenopathy is seen. The stomach appears normal. There is a duodenal diverticulum adjacent to the pancreatic head. There is no sign of small bowel obstruction. There is sigmoid diverticulosis without evidence of diverticulitis. There is no sign of appendicitis. No free intraperitoneal fluid or air is identified. No distal ureteral or bladder calculi are seen. The bladder is decompressed, containing a Fontaine catheter. The iliac arteries are of normal caliber. No pelvic adenopathy is noted. There is a small left inguinal hernia containing only fat There is bilateral lower lobe atelectasis There is a right hip arthroplasty, resulting in surrounding artifact. There is internal fixation of the left femur. There are unchanged compression fractures of the T10 and L4 vertebral bodies Impression: 1. Cholelithiasis without evidence of acute cholecystitis 2. Left renal cyst 3. Diverticulosis without evidence of diverticulitis 4. Unchanged T10 and L4 compression fractures 5. Small left inguinal hernia containing only fat Electronically signed by Danny Lobato 06-26-2025 10:49 AM Discharge Plan Visit Data Chief Complaint: Leg Injury/Pain Stated Complaint: L GROIN PAIN ED Provider: Morteza Mendez Discharge Problem: Left hip pain, Left groin pain, Ambulatory dysfunction Patient Disposition: Admitted As Inpatient Condition: Fair
[2025-06-26] MEDS: ONDANSETRON INJ 2 MG/ML 2 ML VIAL IV STA ×2 (08:56→11:29)
[2025-06-26] MEDS: SODIUM CHLORIDE 0.9% 500 ML IV ONE (08:56)
[2025-06-26] MEDS: MoRPHine SULFATE 4 MG/ML 1 ML CARP\\VIAL IV STA (08:57)
[2025-06-26 09:15] LABS: Hematocrit (blood only) 40.8 % (37.0-47.0); Hemoglobin 13.4 g/dL (12.0-16.0); Immature Granulocytes # (auto) 0.00 K/uL (0.01-0.20); Immature Granulocytes % (auto) 0.0 %; Mean Corpuscular Hemoglobin 31.6 pg (25.0-34.0); Mean Corpuscular Volume 96.2 fL (80.0-100.0); Platelet Count 212 K/uL (130-400); RDW Standard Deviation 54.8 fL (36.4-46.3); Red Blood Count 4.24 M/uL (4.20-5.40); White Blood Count 5.81 K/ul (4.8-10.8)
[2025-06-26] MEDS: HYDROmorphone INJ 0.5 MG/0.5 ML SYR IV STA (09:24)
[2025-06-26 09:26] LABS: Alanine Aminotransferase 34.0 U/L (7-52); Albumin Globulin Ratio 1.3 (0.9-2); Albumin Level 4.3 gm/dl (3.4-5.0); Alkaline Phosphatase 94.0 U/L (34-104); Anion Gap 7.0 (3-11); Bilirubin,Total 0.3 mg/dl (0.2-1.0); Blood Urea Nitrogen 29.0 mg/dl (6-23); Calcium 9.5 mg/dl (8.6-10.3); Carbon Dioxide 27.0 mmol/L (21-32); Chloride 104.0 mmol/L (98-107); Creatinine Clr Calc Pharmacy 74.4 ml/min; Globulin 3.4 gm/dl (2.5-4.0); Glucose 111.0 mg/dl (70-99(Fasting)); Magnesium 2.0 mg/dl (1.7-2.4); Potassium 4.4 mmol/L (3.5-5.1); Sodium 138.0 mmol/L (136-145); Total Protein 7.7 gm/dl (6.0-8.3)
--- NOTE | 2025-06-26 10:00 | XRay Report ---
Technique: A frontal view of the chest was obtained Findings: There are no definite pulmonary infiltrates. The heart size is at the upper limit of normal. No pleural effusion or pneumothorax is seen. There is mild bilateral lung base atelectasis No fracture is noted. There is a left shoulder arthroplasty Impression: Mild bilateral lung base atelectasis Electronically signed by Danny Lobato 06-26-2025 10:00 AM
--- NOTE | 2025-06-26 10:01 | XRay Report ---
Clinical History: Pain. 2 views of the left femur are submitted for review. Findings: There is internal fixation of an old healed fracture of the mid femoral shaft with a fixation brad and screws. There is no definite sign of instrumentation failure. There is mild left knee osteoarthritis. No other osseous abnormality is identified. There are no radiopaque foreign bodies. Impression: Internal fixation of an old fracture of the left femoral shaft Electronically signed by Danny Lobato 06-26-2025 10:01 AM
--- NOTE | 2025-06-26 10:04 | XRay Report ---
Clinical History: Pain. 3 views of the left hip are submitted for review. Comparison is made to the prior examination dated 05/06/2025 Findings: No definite acute fracture is identified. There are unchanged bone fragments superior to the greater trochanter of the left femur. There is internal fixation of an old healed fracture of the mid femoral shaft with a fixation brad and screws. There is no definite sign of instrumentation failure. No other osseous abnormality is identified. There are no radiopaque foreign bodies. Impression: Internal fixation of an old fracture of the left femoral shaft Electronically signed by Danny Lobato 06-26-2025 10:03 AM
[2025-06-26] MEDS: OPTIRAY 320 100ml IV ONE (10:22)
[2025-06-26] MEDS: HYDROmorphone INJ 0.5 MG/0.5 ML SYR IV PRN ×2 (10:35→15:50)
[2025-06-26 10:41] LABS: Appearance Urine Clear (Clear); Glucose Urine UA Negative (Negative)
--- NOTE | 2025-06-26 10:50 | CT Scan Report ---
Clinical History: Left pelvic pain Technique: Axial computed tomography images were obtained of the abdomen and pelvis without intravenous contrast. Comparison is made to the prior CT dated 03/23/2025. Findings: The liver is overall of normal size, attenuation, and contour with no sign of cirrhosis or significant fatty infiltration. No liver mass lesion is seen. A gallstone is present. There is no definite sign of acute cholecystitis. No bile duct dilatation is noted. The spleen is of normal size. No focal splenic lesion is evident. The pancreas appears normal with no sign of acute or chronic pancreatitis and no mass lesion noted. The pancreatic duct is of normal caliber. The adrenal glands appear unremarkable. No renal or proximal ureteral calculi are seen. There is no hydronephrosis or perinephric stranding. No renal mass lesion is identified. There is a 1.5 cm left renal cyst The aorta is of normal caliber. No abdominal adenopathy is seen. The stomach appears normal. There is a duodenal diverticulum adjacent to the pancreatic head. There is no sign of small bowel obstruction. There is sigmoid diverticulosis without evidence of diverticulitis. There is no sign of appendicitis. No free intraperitoneal fluid or air is identified. No distal ureteral or bladder calculi are seen. The bladder is decompressed, containing a Fontaine catheter. The iliac arteries are of normal caliber. No pelvic adenopathy is noted. There is a small left inguinal hernia containing only fat There is bilateral lower lobe atelectasis There is a right hip arthroplasty, resulting in surrounding artifact. There is internal fixation of the left femur. There are unchanged compression fractures of the T10 and L4 vertebral bodies Impression: 1. Cholelithiasis without evidence of acute cholecystitis 2. Left renal cyst 3. Diverticulosis without evidence of diverticulitis 4. Unchanged T10 and L4 compression fractures 5. Small left inguinal hernia containing only fat Electronically signed by Danny Lobato 06-26-2025 10:49 AM
--- NOTE | 2025-06-26 13:03 | History & Physical Report ---
Date of Service June 26, 2025 Assessment & Plan (1) Left hip pain: (2) Left groin pain: (3) Degenerative joint disease (DJD) of lumbar spine: (4) Osteoporosis: Plan Carol Ann is a 80 y/o F PMHx osteoporotic stress fracture of left femur s/p IM nailing of femur in 2019, lumbar spinal stenosis, compression fx T10 and L4, HTN, acquired hypothyroidism who presented to the ED this morning via EMS for evaluation of progressively worsening left groin and hip pain one 1 week without an injury, fall or trauma. States that the pain has progressed to the point where she cannot work and perform ADLs. Pain initially located left groin and radiated down to her knee, however since arrival, pain is now more in the left hip. Worsens with any movement of the left hip or left lower extremity. Denies new/worsening low back pain, saddle anesthesia, bowel/bladder incontinence. Brian es fever/chills, weakness or loss of sensation in LLE. She will be admitted to med/surg for further evaluation/workup of ambulatory dysfunction in the setting progressively worsening left groin and hip pain. #left hip & groin pain/ambulatory dysfunction - progressively worsening x1 week - ED workup showing CBC w/o leukocytosis. H&H stable at 13.4 & 40. Electrolytes wnl. Cr 0.52 (baseline). - XR femur showing stable internal fixation of healed left femoral shaft fracture w/o acute findings. CT ab/pelvis w/o acute findings relating to left groin/hip pain. - will pain to get repeat imaging with CT left hip as there is still concern for occult fracture given the severity of patient's pain and inability to bear weight. Given patient's labs and hemodynamic status, there is low concern for infection or septic joint at this time. Will continue to monitor labs and vitals and reassess as needed if there is status change - pain control with scheduled Tylenol, toradol 10mg po q6h prn, hydromorphone 0.5mg IV q2h - lidocaine patch to be apply to left hip - CBC, BMP qAM #hx gastric ulcer - was admitted to [facility] in March for UGI due to bleeding gastric ulcer - H&H stable at time of admission, patient denies N/V, hematemesis, hematochezia/melena - toradol prn as above - no plan for NSAID use long-term, however given severity of her pain risk/benefit will trial anti-inflammatory - labs as above. #HTN - BP controlled thus far - continue home lisinopril - stable #hypothyroidism - continue home synthroid 88mcg po daily DVT - lovenox Dispo - med/surg History of Present Illness Chief Complaint: left groin/hip pain Primary Care Provider: Della Brown DO Carol Ann is a 80 y/o F PMHx osteoporotic stress fracture of left femur s/p IM nailing of femur in 2019, lumbar spinal stenosis, compression fx T10 and L4, HTN, acquired hypothyroidism who presented to the ED this morning via EMS for evaluation of progressively worsening left groin and hip pain one 1 week. States that the pain has progressed to the point where she cannot work and perform ADLs, which is what prompted her to call EMS. Pain initially located left groin and radiated down to her knee, however since arrival, pain is now more in the left hip. Rates 10/10 on pain scale, now 5/10 with pain medication. Worsens with any movement of the left hip or left lower extremity. Taking Tylenol at home without relief of the pain. Denies any injury, fall or trauma. Denies new/worsening low back pain, saddle anesthesia, bowel/bladder incontinence. Denies fever/chills, weakness or loss of sensation in LLE. Was seen at [facility] ED 05/06/25 for similar symptoms and was discharged home with Tylenol, oxycodone 5mg and lidocaine patch with recommendation to f/u with her orthopedist, Dr. Morin who performed IM nailing. Patient does state, however, that this pain is much worse than what she was experiencing in April. Denies alcohol, tobacco/nicotine, recreational drug use. ED workup showing CBC w/o leukocytosis. H&H stable at 13.4 & 40. Electrolytes wnl. Cr 0.52 (baseline). XR femur showing stable internal fixation of healed left femoral shaft fracture w/o acute findings. CT ab/pelvis w/o acute findings relating to left groin/hip pain. Received morphine 4mg IV and hydromorphone 1mg IV for pain control. Patient's O2 saturation did drop after pain medication administration, however other vitals stable. Currently on 3L O2 NC. Patient will be admitted to med/surg for further evaluation/workup of ambulatory dysfunction in the setting progressively worsening left groin and hip pain. Allergies Allergy/AdvReac Type Severity Reaction Status Date / Time adhesive tape Allergy Intermediate tears skin Verified 03/17/25 18:36 Home Medications Medication Instructions Recorded Confirmed Type calcium 600 mg (as 1 cap PO BID 09/26/19 06/26/25 History carbonate)-vitamin D3 5 mcg (200 unit) capsule (Calcium 600 + D(3)) levothyroxine 88 mcg tablet 88 mcg PO DAILYBB 09/26/19 06/26/25 History multivitamin with minerals 1 tab PO QDL 09/26/19 06/26/25 History acetaminophen 500 mg tablet 1,000 mg PO Q6 PRN Pain 11/24/20 06/26/25 History aspirin 81 mg tablet,delayed 81 mg PO HS 11/24/20 06/26/25 History release amoxicillin 500 mg tablet 2,000 mg (4 x 500 mg) PO ONCE #4 11/25/20 06/26/25 Rx tabs diclofenac sodium 1 % topical gel 2 g topical QID PRN Pain 07/04/21 06/26/25 History faricimab-svoa 6 mg/0.05 mL 0 mg intravitreal UD 03/17/25 06/26/25 History intravitreal syringe (Vabysmo) ibandronate 150 mg tablet 0 mg PO MO 03/17/25 06/26/25 History lisinopril 2.5 mg tablet 2.5 mg PO DAILY 03/17/25 06/26/25 History pramipexole 0.25 mg tablet 0.25 mg PO HS #30 tabs 03/24/25 06/26/25 Rx lidocaine 5 % topical patch 1 patch topical DAILY PRN pain #15 05/06/25 06/26/25 Rx ea oxycodone 5 mg tablet 5 mg PO Q8H PRN pain #9 tabs 05/06/25 06/26/25 Rx ferrous gluconate 236 mg (27 mg 236 mg PO UD 06/26/25 06/26/25 History iron) tablet pantoprazole 40 mg tablet,delayed 40 mg PO BID 06/26/25 06/26/25 History release Past Med/Surg History Problem List (Updated 06/26/25 @ 14:43 by Jesica Carranza DO) Left groin pain Left hip pain Snoring Degenerative joint disease (DJD) of lumbar spine Compression fracture of T11 vertebra Finger pain, left Right foot pain RLL pneumonia Abnormal CXR Thrombocytopenia (Acute) Morbid obesity with BMI of 40.0-44.9, adult Hyperglycemia Hypomagnesemia (Acute) Volume overload (Acute) Heme positive stool Iron deficiency anemia Acute blood loss anemia (Acute) Medical History HTN (hypertension) pt denies Hypothyroidism Stress fracture, right femur, initial encounter for fracture Fracture of femur left Osteoporosis Lumbar radiculopathy Lumbar spondylosis Spinal stenosis of lumbar region Vertebral compression fracture Severe T10, L4 Thoracic back pain Diffuse myofascial pain syndrome Stroke (~2008) R eye, ~15yrs ago. folllows with Dr Degroot ([facility]) with injections into the right eye every 6 weeks. Hx of fracture T11 compression fracture --> no surgical intervention, treated with rehab & physical therapy Degenerative disc disease Osteoarthritis Hx of Graves' disease radioactive iodine treatment Surgical History Status post reverse total replacement of left shoulder (~01/2021) H/O wisdom tooth extraction H/O vein stripping bilateral History of open reduction and internal fixation (ORIF) procedure Left femur History of total right hip arthroplasty Family History Mother Leukemia Father Adopted due to patient being adopted -- father's medical history unknown Other No family history of adverse response to anesthesia Social History Smoking Status: Never smoker Second Hand Exposure: No; Do You Dip or Chew Tobacco: No; Hx Alcohol Use: No Hx Substance Use: No Preferred Language: Bulgarian Communication Ability: Effective Visual Impairment: No Limitations Operations Support Analyst Required: No Beliefs That Will Affect Care: None marital status: / Current Living Situation: Alone current occupational status: retired 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 No acute distress. HEENT: NCAT, normal conjunctiva, EOMI CV: NRRR, no murmur appreciated, no peripheral edema noted on exam. Distal pulses 2+ bilaterally Resp: CTA BL, NC in place, no increased work of breathing, no conversational dyspnea. O2 sat 99% on 3L NC. Symmetrical chest rise, breathing unlabored MSK: PROM of the left lower extremity is severely limited due to pain. Sensation was intact throughout. 5/5 strength with plantar and dorsiflexion of BL LE. Tenderness to palpation over left hip/trochanter that is non-radiating. No obvious deformity. No obvious sign of infection. Skin: Warm, dry, no rashes or bruising or other lesions appreciated Neuro: A&Ox4. CN II-XII grossly intact. Psych: euthymic mood, full affect Results & Data Results & Data Vital Signs (Past 12 Hours) Vital Signs Temp Pulse Pulse Resp BP BP Pulse Ox 06/26/25 10:00 80 19 186/86 H 100 06/26/25 08:59 95 H 06/26/25 08:57 91 H 17 96 06/26/25 08:46 36.4 C L 92 H 24 178/120 H 97 O2 Del Method O2 Flow Rate 06/26/25 10:00 Nasal Cannula 2 06/26/25 08:59 06/26/25 08:57 Room Air 06/26/25 08:46 Room Air Supervising Physician Co-Signing Physician Notes I personally examined the patient and verified all dunbar points of history and exam, discussed case, and agree with decision making with Dr Carranza severe pain at hip with any movement. Vitals noted, in general she is awake and alert pleasant no distress. HEENT normocephalic atraumatic mucous membranes moist. Breathing unlabored no accessory muscle use good effort. Skin without rashes pallor or icterus. Neuro without focal deficits. Exquisite hip painseverity of pain and severity of pain with movement makes ruling out an occult fracture diagnosis of exclusion. Check CT. Pain control (Scheduled Tylenol, as needed Toradol for the short-termon review her GI bleeding was gastritis (definitely will not when use an anti-inflammatory for very long, but right now she is got severe enough pain that risk/benefit at least favors a therapeutic trial) Dilaudid as needed, lidocaine patch) DVT prophylaxisLovenox
--- NOTE | 2025-06-26 14:15 | Billing Data ---
Date of Service June 26, 2025 Coding Level of Care Code 91325 INT INP/OBS CARE
[2025-06-26] MEDS ORDERED: KETOROLAC TROMETHAMINE 10 MG TABLET PO PRN (15:24)
[2025-06-26] MEDS ORDERED: POLYETHYLENE (MIRALAX) 17 GM PACK PO PRN (15:24)
[2025-06-26] MEDS ORDERED: MELATONIN 3 MG TAB PO PRN (15:24)
[2025-06-26] MEDS: ACETAMINOPHEN 500 MG TAB PO SCH ×2 (15:48→16:59)
[2025-06-26] MEDS: ONDANSETRON INJ 2 MG/ML 2 ML VIAL IV PRN (16:00)
[2025-06-26] MEDS: KETOROLAC TROMETHAMINE 15 MG/ML VIAL IV ONE (17:12)
[2025-06-26] MEDS: ENOXAPARIN INJ 40 MG/0.4 ML SYR SQ SCH (17:13)
--- NOTE | 2025-06-26 19:15 | CT Scan Report ---
EXAM: CT of the left hip with contrast EXAM REASON: Suspected fracture COMPARISON: No prior examinations available for comparison TECHNIQUE: Multiple transaxial images of the left hip were obtained without contrast. The images were also reconstructed in coronal and sagittal planes. FINDINGS: The patient is status post hip replacement. The orthopedic hardware is creating beam-hardening artifact and obscuring adjacent structures. There is no definite acute fracture or dislocation. There is no significant joint effusion. There is concentric hip joint space loss. There is joint space loss noted at the pubic symphysis in addition to a sclerotic appearance of the pubic bones IMPRESSION: 1. No definite evidence of acute fracture or dislocation. 2. Moderate degenerative osteoarthritis noted at the hip joint along with degenerative osteoarthritic changes noted at the pubic symphysis. Electronically signed by Gen Spangler 06-26-2025 7:09 PM
[2025-06-26] MEDS: KETOROLAC TROMETHAMINE 15 MG/ML VIAL IV PRN (20:17)
[2025-06-26] MEDS: CALCIUM 600MG + VIT D 400 IU TAB PO SCH (20:18)
[2025-06-26] MEDS: PRAMIPEXOLE DIHYDROCHLO 0.25 MG TAB PO SCH (20:18)
[2025-06-26] MEDS: REMOVE LIDODERM PATCH SCH (20:18)
[2025-06-26] MEDS: ASPIRIN 81 MG ECTAB PO SCH (20:18)
[2025-06-27] MEDS: LEVOTHYROXINE SODIUM 88 MCG TABLET PO SCH (05:53)
[2025-06-27 06:58] LABS: Hematocrit (blood only) 35.8 % (37.0-47.0); Hemoglobin 11.4 g/dL (12.0-16.0); Mean Corpuscular Hemoglobin 31.5 pg (25.0-34.0); Mean Corpuscular Volume 98.9 fL (80.0-100.0); Platelet Count 169 K/uL (130-400); RDW Standard Deviation 54.5 fL (36.4-46.3); Red Blood Count 3.62 M/uL (4.20-5.40); White Blood Count 4.85 K/ul (4.8-10.8)
[2025-06-27 07:15] LABS: Anion Gap 5.0 (3-11); Blood Urea Nitrogen 21.0 mg/dl (6-23); Calcium 9.5 mg/dl (8.6-10.3); Carbon Dioxide 29.0 mmol/L (21-32); Chloride 105.0 mmol/L (98-107); Creatinine Clr Calc Pharmacy 112.0 ml/min; Glucose 85.0 mg/dl (70-99(Fasting)); Potassium 4.4 mmol/L (3.5-5.1); Sodium 139.0 mmol/L (136-145)
[2025-06-27] MEDS: LIDOCAINE 5% 1 PATCH TD SCH (08:46)
[2025-06-27] MEDS: DICLOFENAC SOD 1% GEL 100 GM TUBE EXT PRN (08:48)
--- NOTE | 2025-06-27 09:01 | Hospitalist Progress Note ---
Date of Service June 27, 2025 Assessment & Plan (1) Left hip pain: (2) Left groin pain: (3) Degenerative joint disease (DJD) of lumbar spine: Plan Carol Ann is a 80 y/o F PMHx osteoporotic stress fracture of left femur s/p IM nailing of femur in 2019, lumbar spinal stenosis, compression fx T10 and L4, HTN, acquired hypothyroidism who presented to the ED this morning via EMS for evaluation of progressively worsening left groin and hip pain one 1 week without an injury, fall or trauma. States that the pain has progressed to the point where she cannot work and perform ADLs. Pain initially located left groin and radiated down to her knee, however since arrival, pain is now more in the left hip. Worsens with any movement of the left hip or left lower extremity. Denies new/worsening low back pain, saddle anesthesia, bowel/bladder incontinence. Denies fever/chills, weakness or loss of sensation in LLE. She will be admitted to med/surg for further evaluation/workup of ambulatory dysfunction in the setting progressively worsening left groin and hip pain. #left hip & groin pain/ambulatory dysfunction - progressively worsening x1 week - ED workup showing CBC w/o leukocytosis. H&H 11.4 & 35.8 Electrolytes wnl. Cr 0.69 (baseline). - XR femur showing stable internal fixation of healed left femoral shaft fracture w/o acute findings. CT ab/pelvis w/o acute findings relating to left groin/hip pain. - Xrays and CT reassuring without signs of fracture - and pain starting to shift posterior raising possibility of lumbar radiculopathy being the main pathology - will start dexamethasone 6mg IV daily for 1 week - Mg 4mg IV - use as muscle relaxer - CBC remains w/o leukocytosis and pt hemodynamically stable, so concern for infection/septic joint is still low at this time - pain control with scheduled Tylenol 1000mg IV q8h, toradol 10mg IV q6h prn, hydromorphone 0.5mg IV q2h - lidocaine patch to be applied to left hip - CBC, BMP qAM #hx gastric ulcer - was admitted to [facility] in March for UGI due to bleeding gastric ulcer - H&H 11.4 & 35.8 this morning. Patient denies N/V, hematemesis, hematochezia/melena - toradol prn as above - no plan for NSAID use long-term, however given severity of her pain risk/benefit will continue with short-term anti-inflammatory - labs as above. #HTN - BP controlled thus far - continue home lisinopril #hypothyroidism - continue home levothyroxine 88mcg po daily DVT - lovenox Dispo - med/surg Admission and Anticipated Discharge Date Admission Date: June 26, 2025 Supervising Physician Co-Signing Physician Notes I personally examined the patient and verified all dunbar points of history and exam, discussed case, and agree with decision making with Dr Carranza pain severity about the same, but location is shifting posteriorly "more sciatic now". Vitals noted, in general she is awake and alert pleasant no distress. HEENT normocephalic atraumatic mucous membranes moist. Breathing unlabored no accessory muscle use good effort. Skin without rashes pallor or icterus. Neuro without focal deficits. Exquisite hip painseverity of pain and severity of pain with movement made ruling out an occult fracture diagnosis of exclusion. Xray and CT reassuring - and with pain shifting more posterior - lumbar radic or peripheral MSK issues becoming more likely. for high probability of lumbar radic - steroids; for muscle spasm - IV mag. PT/OT eval and treat. Pain control (Scheduled Tylenol, as needed Toradol for the short-termon review her GI bleeding was gastritis (definitely will not when use an anti-inflammatory for very long, but right now she is got severe enough pain that risk/benefit at least favors a therapeutic trial) Dilaudid as needed, lidocaine patch) DVT prophylaxisLovenox Subjective patient seen and examined at bedside. no overnight events. Nurse at bedside - no current concerns. Patient still reporting pain, minimally controlled with current regimen. Was having N/V with dilaudid yesterday evening and was encouraged use of IV toradol. N/V has since resolved and has been able to tolerate PO w/o issue. Denies chest pain, SOB, abdominal pain. Review of Systems Review of Systems: as per hpi Physical Exam Physical Exam: Gen: well-appearing, no acute distress HEENT: NCAT, normal conjunctiva, EOMI CV: NRRR, no murmur appreciated, no peripheral edema noted on exam. Distal pulses 2+ bilaterally Resp: CTA BL, NC in place, no increased work of breathing, no conversational dyspnea. O2 sat 99% on 3L NC. Symmetrical chest rise, breathing unlabored MSK: PROM of LLE continues to be limited due to pain. Sensation intact throughout BL LE. Strength 5/5 BL dorsi and plantarflexion. Rest of LLE strength testing not completed due to pain. Strength 5/5 RLE. Tenderness to palpation over left hip/trochanter that is non-radiating. No obvious deformity. No obvious sign of infection. Skin: Warm, dry, no rashes or bruising or other lesions appreciated Neuro: A&Ox4. CN II-XII grossly intact. Psych: euthymic mood, full affect Results & Data Results & Data Vital Signs (Past 12 Hours) Vital Signs Temp Pulse Resp BP BP Pulse Ox O2 Del Method 06/27/25 07:38 36.5 C 76 16 126/75 97 Nasal Cannula 06/27/25 07:20 Nasal Cannula 06/26/25 22:59 36.4 C L 70 16 122/78 98 Room Air O2 Flow Rate 06/27/25 07:38 06/27/25 07:20 2 06/26/25 22:59
--- NOTE | 2025-06-27 09:35 | Electrocardiogram Report ---
Test Reason : Blood Pressure : */* mmHG Vent. Rate : 88 BPM Atrial Rate : 88 BPM P-R Int : 156 ms QRS Dur : 132 ms QT Int : 402 ms P-R-T Axes : 105 60 17 degrees QTcB Int : 486 ms Normal sinus rhythm Right bundle branch block Lateral infarct , age undetermined Abnormal ECG When compared with ECG of 20-Mar-2025 08:59, T wave inversion less evident in Anterior leads Confirmed by Paul Smith [id number]) on 06/27/2025 9:35:22 AM Referred By: REFERRED SELF Confirmed By: Paul Smith
[2025-06-27] MEDS: CEROVITE ADV FORMULA TAB PO SCH (11:40)
[2025-06-27] MEDS: MAGNESIUM SULFATE / D5W 1 GM/100 ML BAG IV SCH ×2 (13:21→13:42)
--- NOTE | 2025-06-27 14:06 | Billing Data ---
Date of Service June 27, 2025 Coding Level of Care Code 86053 SUB INP/OBS CARE MIN
[2025-06-28 06:23] LABS: Hematocrit (blood only) 35.3 % (37.0-47.0); Hemoglobin 11.8 g/dL (12.0-16.0); Mean Corpuscular Hemoglobin 31.8 pg (25.0-34.0); Mean Corpuscular Volume 95.1 fL (80.0-100.0); Platelet Count 210 K/uL (130-400); RDW Standard Deviation 50.0 fL (36.4-46.3); Red Blood Count 3.71 M/uL (4.20-5.40); White Blood Count 5.44 K/ul (4.8-10.8)
[2025-06-28 06:56] LABS: Anion Gap 6.0 (3-11); Blood Urea Nitrogen 20.0 mg/dl (6-23); Calcium 9.1 mg/dl (8.6-10.3); Carbon Dioxide 28.0 mmol/L (21-32); Chloride 104.0 mmol/L (98-107); Creatinine Clr Calc Pharmacy 94.1 ml/min; Glucose 116.0 mg/dl (70-99(Fasting)); Potassium 4.7 mmol/L (3.5-5.1); Sodium 138.0 mmol/L (136-145)
[2025-06-28] MEDS: FERROUS GLUCONATE 324 MG TAB PO SCH (07:47)
[2025-06-28] MEDS: PNEUMOCOCCAL VACCINE (PCV20) 20-VAL CONJ-DIP CRM/PF 0.5 ML SYR IM ONE (11:26)
[2025-06-28 14:17] VITALS: BP 148/81; PULSE 79; RESP 16; TEMP 97.2; O2SAT 94
--- NOTE | 2025-06-28 17:30 | Discharge Summary ---
Date of Service June 28, 2025 Admission HPI Per Admitting Provider Carol Ann is a 80 y/o F PMHx osteoporotic stress fracture of left femur s/p IM nailing of femur in 2019, lumbar spinal stenosis, compression fx T10 and L4, HTN, acquired hypothyroidism who presented to the ED this morning via EMS for evaluation of progressively worsening left groin and hip pain one 1 week. States that the pain has progressed to the point where she cannot work and perform ADLs, which is what prompted her to call EMS. Pain initially located left groin and radiated down to her knee, however since arrival, pain is now more in the left hip. Rates 10/10 on pain scale, now 5/10 with pain medication. Worsens with any movement of the left hip or left lower extremity. Taking Tylenol at home without relief of the pain. Denies any injury, fall or trauma. Denies new/worsening low back pain, saddle anesthesia, bowel/bladder incontinence. Denies fever/chills, weakness or loss of sensation in LLE. Was seen at [facility] ED 05/06/25 for similar symptoms and was discharged home with Tylenol, oxycodone 5mg and lidocaine patch with recommendation to f/u with her orthopedist, Dr. Morin who performed IM nailing. Patient does state, however, that this pain is much worse than what she was experiencing in April. Denies alcohol, tobacco/nicotine, recreational drug use. ED workup showing CBC w/o leukocytosis. H&H stable at 13.4 & 40. Electrolytes wnl. Cr 0.52 (baseline). XR femur showing stable internal fixation of healed left femoral shaft fracture w/o acute findings. CT ab/pelvis w/o acute findings relating to left groin/hip pain. Received morphine 4mg IV and hydromorphone 1mg IV for pain control. Patient's O2 saturation did drop after pain medication administration, however other vitals stable. Currently on 3L O2 NC. Patient will be admitted to med/surg for further evaluation/workup of ambulatory dysfunction in the setting progressively worsening left groin and hip pain. Admission Exam Per Admitting Provider Physical Exam Physical Exam: Gen: tired appearing however not toxic or ill-appearing. No acute distress. HEENT: NCAT, normal conjunctiva, EOMI CV: NRRR, no murmur appreciated, no peripheral edema noted on exam. Distal pulses 2+ bilaterally Resp: CTA BL, NC in place, no increased work of breathing, no conversational dyspnea. O2 sat 99% on 3L NC. Symmetrical chest rise, breathing unlabored MSK: PROM of the left lower extremity is severely limited due to pain. Sensation was intact throughout. 5/5 strength with plantar and dorsiflexion of BL LE. Tenderness to palpation over left hip/trochanter that is non-radiating. No obvious deformity. No obvious sign of infection. Skin: Warm, dry, no rashes or bruising or other lesions appreciated Neuro: A&Ox4. CN II-XII grossly intact. Psych: euthymic mood, full affect Principal Diagnosis Left groin/hip pain Discharge Exam Constitutional WD/WN, vitals as above Eyes + anicteric sclerae and EOM intact bilaterally Respiratory normal respiratory effort, lungs clear to auscultation Cardiovascular Rate/Rhythm: regular rate and regular rhythm Heart Sounds: normal S1 and normal S2; no murmur Musculoskeletal L. Groin was tender to palpation. After asking patient to lean up to auscultate her lungs, patient complained of pain upon light palpation of her anterior lower extremities B/L. No R. groin pain on palpation. Skin no rashes, warm and dry Psychiatric Eye Contact: good eye contact Speech: normal rate/rhythm/volume of speech Thought Process: goal directed thought process and linear/logical thought process Discharge Data Allergies Allergy/AdvReac Type Severity Reaction Status Date / Time adhesive tape Allergy Intermediate tears skin Verified 03/17/25 18:36 Consultations 06/26/25 11:08 ED Decision to Admit Stat Ordered Studies 06/26/25 09:20 CT Abd and Pelvis [CT abd pelvis IV con only] Stat 06/26/25 15:24 CT hip LT w con Stat Hospital Course (1) Left hip pain: (2) Left groin pain: (3) Degenerative joint disease (DJD) of lumbar spine: Hilaria Maharaj is a 80 y/o F PMHx osteoporotic stress fracture of left femur s/p IM nailing of femur in 2019, lumbar spinal stenosis, compression fx T10 and L4, HTN, acquired hypothyroidism who presented to the ED this morning via EMS for evaluation of progressively worsening left groin and hip pain one 1 week without an injury, fall or trauma. States that the pain has progressed to the point where she cannot work and perform ADLs. Pain initially located left groin and r adiated down to her knee, however since arrival, pain is now more in the left hip. Worsens with any movement of the left hip or left lower extremity. Denies new/worsening low back pain, saddle anesthesia, bowel/bladder incontinence. Denies fever/chills, weakness or loss of sensation in LLE. She will be admitted to med/surg for further evaluation/workup of ambulatory dysfunction in the setting progressively worsening left groin and hip pain. #left hip & groin pain/ambulatory dysfunction - progressively worsening x1 week - ED workup showing CBC w/o leukocytosis. H&H 11.8 & 35.3 (06/28/25). Electrolytes wnl. Cr 0.44. - XR femur showing stable internal fixation of healed left femoral shaft fracture w/o acute findings. CT ab/pelvis w/o acute findings relating to left groin/hip pain. - plan yesterday was to repeat imaging with CT left hip due to concern for fracture. Images were able to be taken from earlier CT ab/pelvis. Results w/o evidence of fracture, with moderate degenerative changes at hip joint and pubic symphysis. Due to patient's hardware, there is decent artifact on the imaging. - discussed with on-call ortho due to patient level and concern for occult fx. - will start dexamethasone 6mg IV daily for 1 week - Mg 4mg IV - used as muscle relaxer - CBC remains w/o leukocytosis and pt hemodynamically stable, so concern for infection/septic joint is still low at this time - pain control with scheduled Tylenol 1000mg IV q8h, toradol 10mg IV q6h prn, hydromorphone 0.5mg IV q2h - lidocaine patch to be applied to left hip - CBC, BMP qAM -Discharged patient with tramadol 50mg Q6H as needed for pain. Limit the use of NSAIDS due to hx of gastric ulcer. -On Abdomen/Pelvis CT found: 1. Cholelithiasis without evidence of acute cholecystitis 2. Left renal cyst (1.5cm) 3. Diverticulosis without evidence of diverticulitis 4. Unchanged T10 and L4 compression fractures 5. Small left inguinal hernia containing only fat -Recommend patient to see PCP for post-hospital f/u and see orthopedics to see if need steroid injection to help with pain of the L. hip. #hx gastric ulcer - was admitted to [facility] in March for UGI due to bleeding gastric ulcer - H&H 11.4 & 35.8 this morning. Patient denies N/V, hematemesis, hematochezia/melena - toradol prn as above - no plan for NSAID use long-term, however given severity of her pain risk/benefit will continue with short-term anti-inflammatory - labs as above. #HTN - BP controlled thus far - continue home lisinopril #hypothyroidism - continue home levothyroxine 88mcg po daily DVT - lovenox Dispo - med/surg Total Time Total Time Spent Total Time Spent (In Minutes): per attending Discharge Plan Discharge Items Patient Disposition: Home - Self-Care Reason For Visit: LEFT GROIN/HIP PAIN Discharge Diagnosis: Left groin/Hip Pain Condition on Discharge: Fair Activity: Resume your previous activity Non-emergency contact: Primary Care Provider Call non-emergency contact if: your symptoms worsen, your pain is not controlled and your temperature is above 101.5 Follow-up/Referrals: Della Reyes DO [Primary Care Provider] - Diet: Regular Addtl Attending Provider Instructions: You were admitted into the hospital for worsening left groin/hip pain. 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 Fortunately, we did not see any fractures. We gave you steroids to try and get better control of your pain, and also started you on a new medication called Tramadol, which is an opioid pain medication. You can take Tramadol 50 mg by mouth every 6 hours for management of pain. This medication can cause sedation and make you feel drowsy, so advise caution with driving or operating heavy things while using this medication. You can take Tylenol as well for pain control. We do recommend you limit the use of Non-Steroidal Anti-Inflammatory Drugs (NSAIDs) such as Advil, Aleve, Toradol, etc. due to your history of stomach ulcers. We recommend to see your PCP for post-discharge follow up and for continued monitoring of your pain, as well as to see an orthopedist (bone doctor) to see if you can have a possible steroid injection in your left hip to help with your pain or discuss other options in management. CONTACT YOUR PRIMARY CARE PROVIDER if you experience any of the following: Worsening of symptoms Fever, chills, or fatigue Difficulty following your treatment plan, or difficulty taking medications CALL 911 OR GO TO THE EMERGENCY DEPARTMENT if you experience any of the following: Sudden, severe abdominal pain or nausea/vomiting Severe chest pain, or chest pain that radiates (moves) to your jaw or arm Sudden, severe shortness of breath or difficulty breathing Thank you for allowing us to participate in your care. Pending Studies at Discharge: No Stand-Alone Forms: [facility], Smoking Cessation Medications and DC Order Prescriptions: New tramadol 50 mg tablet 50 mg PO Q6H PRN (Reason: pain) Qty: 20 0RF Continued diclofenac sodium 1 % gel 2 g topical QID PRN (Reason: Pain) Patient Comments: 06/26- otc unable to verify Rx Instructions: apply to single elbow, wrist or hand; for hand includes palm/fingers/back of hand, and back. amoxicillin 500 mg tablet 2,000 mg PO ONCE Qty: 4 3RF Patient Comments: 06/26-no fill history unable to verify Rx Instructions: 4 tabs 1 hour prior to procedure levothyroxine 88 mcg tablet 88 mcg PO DAILYBB multivitamin with minerals Tablet 1 tab PO QDL Patient Comments: 06/26- otc unable to verify calcium carbonate-vitamin D3 [Calcium 600 + D(3)] 600 mg calcium- 200 unit Capsule 1 cap PO BID Patient Comments: 06/26- otc unable to verify aspirin 81 mg tablet,delayed release (DR/EC) 81 mg PO HS Patient Comments: 06/26- otc unable to verify acetaminophen 500 mg tablet 1,000 mg PO Q6 PRN (Reason: Pain) Patient Comments: 06/26- otc unable to verify lisinopril 2.5 mg tablet 2.5 mg PO DAILY ibandronate 150 mg Tablet 0 mg PO MO Patient Comments: 06/26-no fill history unable to verify Rx Instructions: 03/17/25 PT IS OFF THIS MED FOR THE YEAR 2024. WILL RESUME IN 2025. Vabysmo 6 mg/0.05 mL Syringe 0 mg INTRAVITREAL UD Patient Comments: 06/26-no fill history unable to verify. original:6 mg intravitreal q 6-8 weeks Rx Instructions: INJECT R EYE EVERY 6-8 WEEKS pramipexole 0.25 mg tablet 0.25 mg PO HS Qty: 30 0RF lidocaine 5 % adhesive patch,medicated 1 patch TOP DAILY PRN (Reason: pain) Qty: 15 0RF Patient Comments: 06/26- otc unable to verify Rx Instructions: leave on most painful area for 12 hrs pantoprazole 40 mg tablet,delayed release (DR/EC) 40 mg PO BID ferrous gluconate 236 mg (27 mg iron) tablet 236 mg PO UD Patient Comments: 06/26-otc/no fill history unable to verify Rx Instructions: 236 mg orally three times weekly (Saturday, Saturday, Saturday) Discontinued oxycodone 5 mg tablet 5 mg PO Q8H PRN (Reason: pain) Qty: 9 0RF Patient Comments: 06/26- last filled 05/06 3 day supply #9 Discharge Orders: Discharge Order (Routine); Ordered 06/28/25 Ordered By: Thea Ramirez Admission Data Admit Date/Time: 06/26/25 14:22 Attending Provider: Tayo Gonzalez Admit Provider: Jesica Carranza Primary Care Provider: Della Reyes Other Providers: Emeterio Elizalde Other Interventions: Discharge Summary Assessment (RN) Last Done: 06/28/25 17:32 Supervising Physician Co-Signing Physician Notes Resident Physician Supervision Note: I personally examined the patient and verified all dunbar points of history and exam, discussed case, and agree with decision making with Dr. Baxter Patient seen in the morning she was ambulate about her room. We did try tramadol for pain control this seems to be satisfactory. Patient will follow-up with outpatient orthopedics for further evaluation of her groin pain. I discussed the case with the resident and agree with the findings and plan as documented in the note. Any exceptions or clarifications are listed here: Documented By: Tayo Gonzalez MD Resident Activity Tracking Resident Involvement: Resident Care Provided Care Provided: Adult Hospital Medicine
--- NOTE | 2025-06-29 07:31 | Billing Data ---
Date of Service June 29, 2025 Coding Level of Care Code 19096 IN/OBS DISCH 30 MIN/LESS
== END 2025-06-28 18:36 | disposition home or self-care (01) | DRG 552 ==
LOC: ED 08:35 → SUATTDRO 14:22 → 3N 15:18